=== PATIENT | male | born 1960 | race Caucasian/White ===

== ENCOUNTER 2024-03-22 09:58 | Inpatient (IN) ==
[2024-03-22 10:41] LABS: Basophils # (auto) 0.03 K/uL (0.00-0.20); Basophils % (auto) 0.3 %; Eosinophils # (auto) 0.24 K/uL (0.00-0.50); Eosinophils % (auto) 2.2 %; Hematocrit (blood only) 54.8 % (42.0-52.0); Hemoglobin 17.5 g/dl (14.0-18.0); Immature Granulocytes # (auto) 0.14 K/uL (0.01-0.20); Immature Granulocytes % (auto) 1.3 %; Lymphocytes # (auto) 1.37 K/uL (1.20-3.40); Lymphocytes % (auto) 12.8 %; Mean Corpuscular Hgb Conc 31.9 g/dL (32.0-36.0); Mean Corpuscular Volume 100.2 fL (80.0-100.0); Mean Platelet Volume 10.5 fL (9.4-12.4); Monocytes # (auto) 0.56 K/uL (0.11-0.59); Monocytes % (auto) 5.2 %; Neutrophils # (auto) 8.35 K/uL (1.40-6.50); Neutrophils % (auto) 78.2 %; Platelet Count 189 K/uL (130-400); RDW Coefficient of Variation 15.2 % (11.5-14.5); RDW Standard Deviation 54.9 fL (36.4-46.3); Red Blood Count 5.47 M/uL (4.70-6.10); White Blood Count 10.69 K/ul (4.8-10.8)
--- NOTE | 2024-03-22 10:41 | Emergency Department Note ---
Impression & Plan Acute dyspnea, Acute exacerbation of chronic obstructive pulmonary disease, Acute hypoxemic respiratory failure, Hypercarbia ED Provider Note HISTORY OF PRESENT ILLNESS: Patient is a 64-year-old male presenting with cough and shortness of breath. Patient reports he has been feeling unwell for the last 2 weeks. He states he had progressively worsening shortness of breath and a cough productive of a brown sputum. Patient denies any DVT or PE history. Denies any anticoagulation use. He denies any history of cardiac stents. He states he has had progressively worsening shortness of breath in the last 2 weeks. He was at a doctor's office visit today and was taken down to the [facility] where he is found to be hypoxic to 83% on room air and was referred to the emergency department. Patient reports he normally has a productive cough of a clear sputum, but it is now a brown color and foul tasting. He states he does not wear any supplemental oxygen at baseline. Denies any recent travel. Denies any recent sick contact exposures. 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 Denies any abdominal pain, nausea or vomiting. Denies any dysuria or hematuria. Patient reports that shortness of breath is worse at nighttime. Reports that he is only able to sleep for about 20 to 30 minutes at a time before he wakes up gasping for air and needing to cough. Denies any lower extremity edema. ROS: as above PHYSICAL EXAM: Constitutional: Patient appears in no acute distress. HENT: Head: Normocephalic and atraumatic. Eyes: EOMI, PERRL Mouth/Throat: Mucous membranes moist. Neck: Trachea midline. Neck supple. Cardiovascular: RRR, No murmurs, rubs or gallops. Intact distal pulses. Pulmonary/Chest: Patient is conversationally dyspneic. He is on 3 L nasal cannula with saturations of 91%. Decreased breath sounds in bilateral lower lungs. Abdominal: Abdomen soft, no tenderness, rebound or guarding. Musculoskeletal: No edema, tenderness or deformity noted. Skin: Warm and dry. No rash, erythema, pallor or cyanosis Psychiatric: Appropriate mood and affect for situation. Neurological: Alert and keenly responsive. CN II-XII grossly intact, moving all extremities equally and fully. MDM: - Vitals signs showed hypertension, tachycardia and no hypoxia - History obtained via patient. History as above. - Chronic conditions affecting care: Hypothyroidism; DM-2; COPD; HLD - Differential diagnoses include, but are not limited to: Congestive heart failure; acute coronary syndrome; COPD/asthma exacerbation; pulmonary edema; pulmonary embolism; pneumonia; pneumothorax; viral syndrome - Order placed for continuous cardiac monitoring. At this time, monitor showed rate of 76 bpm with normal sinus rhythm, per my interpretation. - External medical records reviewed. [facility] practice office visit note dated 03/22/2024 was reviewed. Patient was evaluated for shortness of breath and hypoxia. He had expressed to them that he has been short of breath for the last 2 weeks. He had notable hypoxia to 83% after walking on room air. On 2 L nasal cannula he was found to have 94% saturation. While at rest and talking in the office, his oxygen saturation was 87% on room air. - EKG interpreted by myself showed normal sinus rhythm. Rate 96 bpm. QT 338. No acute ischemic changes. - Laboratory workup interpreted by myself showed normal WBC; normal PT/INR; normal lactate; normal procalcitonin; stable electrolytes; hyperglycemia (glucose 278); normal troponin; normal BNP - Viral respiratory panel negative - VBG showed hypercarbia without acidosis - CXr negative for pneumonia, per my interpretation - Given patient's shortness of breath and hypoxia, CT PE was ordered. CT PE negative for PE. - Patient given 80 mg IV Solu-Medrol. His symptoms may be secondary to an acute COPD exacerbation. He remained borderline hypoxic on oxime mask and nasal cannula, so he was transition to BiPAP for work of breathing and hypercarbia. - Discussion was had with pillowcase turner about patient's case and need for admission - Hospitalist consulted for admission - [facility] and [facility]. ASSESSMENT AND PLAN: Diagnosis: Acute dyspnea; acute hypoxic respiratory failure; hypercarbia; acute COPD exacerbation Plan: Admit Past Med/Surg History Problem List (Updated 03/22/24 @ 13:02 by Graciela Cook MD) Hypercarbia (Acute) Acute hypoxemic respiratory failure (Acute) Acute exacerbation of chronic obstructive pulmonary disease (Acute) Acute dyspnea (Acute) Social History Smoking Status: Current every day smoker Tobacco Type: Cigarettes Feels Safe at Home: Yes Allergies Allergies Allergy/AdvReac Type Severity Reaction Status Date / Time No Known Allergies Allergy Unverified 03/22/24 11:44 Home Meds Home Medications Medication Instructions Recorded Confirmed atorvastatin 40 mg tablet 40 mg PO DAILY 03/22/24 03/22/24 cholecalciferol (vitamin D3) 50 50 mcg PO DAILY 03/22/24 03/22/24 mcg (2,000 unit) capsule (Vitamin D3) cyanocobalamin (vitamin B-12) 500 500 mcg PO DAILY 03/22/24 03/22/24 mcg tablet (Vitamin B-12) empagliflozin 25 mg tablet 25 mg PO DAILY 03/22/24 03/22/24 (Jardiance) levothyroxine 25 mcg tablet 25 mcg PO DAILY 03/22/24 03/22/24 metformin 850 mg tablet 850 mg PO BID 03/22/24 03/22/24 Results & Data (ED) Vital Signs Vital Signs - 24 hr 03/22/24 09:59 03/22/24 10:01 03/22/24 10:15 Temperature 36.3 C L Temperature Source Temporal Artery Scan Pulse Rate 107 H 99 H Pulse Rate [Right Brachial] 94 H Pulse Rate from SpO2 Sensor 99 H Pulse Rhythm [Right Brachial] Regular Pulse Strength [Right Brachial] Normal Respiratory Rate 23 18 19 Respiratory Effort / Characteristics Short of Breath Non-Labored Respiratory Depth Deep Normal Respiratory Pattern Irregular Regular Blood Pressure 157/74 H 131/85 Blood Pressure [Right Arm] 131/85 Blood Pressure Mean 101 100 Blood Pressure Mean [Right Arm] 100 Blood Pressure Position [Right Arm] Sitting Pulse Oximetry 93 88 L 93 Oxygen Delivery Method Nasal Cannula Room Air Oxymask Oxygen Flow Rate 4 4 Sepsis Recent Fever Within 48 Hours No Sepsis New/Unexplained Change in Mental Status N/A Sepsis Action Taken by Nursing No Action Required 03/22/24 10:20 03/22/24 10:28 03/22/24 11:59 Temperature 37.3 C Temperature Source Oral Pulse Rate 95 H Pulse Rate [Right Brachial] 76 Pulse Rate from SpO2 Sensor Pulse Rhythm [Right Brachial] Regular Pulse Strength [Right Brachial] Normal Respiratory Rate 22 Respiratory Effort / Characteristics Labored Respiratory Depth Deep Respiratory Pattern Blood Pressure Blood Pressure [Right Arm] 129/83 Blood Pressure Mean Blood Pressure Mean [Right Arm] 98 Blood Pressure Position [Right Arm] Sitting Pulse Oximetry 88 L 93 Oxygen Delivery Method Room Air Aerosol Mask Oxygen Flow Rate Sepsis Recent Fever Within 48 Hours Sepsis New/Unexplained Change in Mental Status Sepsis Action Taken by Nursing Laboratory Data 03/22/24 10:15 03/22/24 10:15 Lab Results 03/22/24 03/22/24 03/22/24 Range/Units 10:15 10:31 11:16 WBC 10.69 (4.8-10.8) K/ul RBC 5.47 (4.70-6.10) M/uL Hgb 17.5 (14.0-18.0) g/dl Hct 54.8 H (42.0-52.0) % MCV 100.2 H (80.0-100.0) fL MCH 32.0 (25.0-34.0) pg MCHC 31.9 L (32.0-36.0) g/dL RDW Std Deviation 54.9 H (36.4-46.3) fL RDW Coeff of Wes 15.2 H (11.5-14.5) % Plt Count 189 (130-400) K/uL MPV 10.5 (9.4-12.4) fL Immature Gran % (Auto) 1.3 % Neut % (Auto) 78.2 % Lymph % (Auto) 12.8 % Sawyer % (Auto) 5.2 % Eos % (Auto) 2.2 % Baso % (Auto) 0.3 % Neut # (Auto) 8.35 H (1.40-6.50) K/uL Lymph # (Auto) 1.37 (1.20-3.40) K/uL Sawyer # (Auto) 0.56 (0.11-0.59) K/uL Eos # (Auto) 0.24 (0.00-0.50) K/uL Baso # (Auto) 0.03 (0.00-0.20) K/uL Immature Gran # (Auto) 0.14 (0.01-0.20) K/uL PT 10.3 (9.0-12.0) Seconds INR 0.9 (0.9-1.1) VBG pH 7.36 (7.36-7.41) VBG pCO2 64 H (38-50) mmHg VBG pO2 37 mmHg VBG HCO3 36 mmol/L VBG O2 Saturation 69.3 % VBG Base Excess 8.4 mEq/L Sodium 137 (136-145) mmol/L Potassium 4.6 (3.5-5.1) mmol/L Chloride 99 (98-107) mmol/L Carbon Dioxide 34 H (21-32) mmol/L Anion Gap 4 (3-11) BUN 11 (6-23) mg/dl Creatinine 0.92 (0.6-1.4) mg/dl Est Cr Clr Drug Dosing 79.6 ml/min Est GFR ( Amer) 101.5 ml/min Est GFR (Non-Af Amer) 87.6 ml/min BUN/Creatinine Ratio 12.0 (10-20) Glucose 278 H (70-99(Fasting)) mg/dl Lactate 1.1 (0.4-2.0) mmol/L Calcium 10.0 (8.6-10.3) mg/dl Magnesium 2.3 (1.7-2.4) mg/dl Total Bilirubin 0.6 (0.2-1.0) mg/dl AST 39 (13-39) U/L ALT 51 (7-52) U/L Alkaline Phosphatase 100 (34-104) U/L Troponin I High Sens 8.4 (0-20) pg/ml B-Natriuretic Peptide 7 (0-100) pg/ml Total Protein 7.1 (6.0-8.3) gm/dl Albumin 4.5 (3.4-5.0) gm/dl Globulin 2.6 (2.5-4.0) gm/dl Albumin/Globulin Ratio 1.7 (0.9-2) Procalcitonin 0.05 (0-0.5) ng/ml Adenovirus (PCR) Not Detected (NotDetected) B. pertussis DNA (PCR) Not Detected (NotDetected) B.parapertussis DNA PCR Not Detected (NotDetected) C. pneumoniae DNA (PCR) Not Detected (NotDetected) Coronavirus OC43 (PCR) Not Detected (NotDetected) Coronavirus HKU1 (PCR) Not Detected (NotDetected) Coronavirus 229E (PCR) Not Detected (NotDetected) SARS-CoV-2 (PCR) Not Detected (NotDetected) Coronavirus NL63 (PCR) Not Detected (NotDetected) Human Metapneumovir PCR Not Detected (NotDetected) Influenza Type A (PCR) Not Detected (NotDetected) Influenza Type B (PCR) Not Detected (NotDetected) M. pneumoniae (PCR) Not Detected (NotDetected) Parainfluenza 1 (PCR) Not Detected (NotDetected) Parainfluenza 2 (PCR) Not Detected (NotDetected) Parainfluenza 3 (PCR) Not Detected (NotDetected) Parainfluenza 4 (PCR) Not Detected (NotDetected) RSV (PCR) Not Detected (NotDetected) Entero/Rhino (PCR) Not Detected (NotDetected) Administered Medications Discontinued Medications Ioversol (Optiray 320 125ml) 120 ml IV ONCE ONE Stop: 03/22/24 11:27 Last Admin: 03/22/24 11:27 Dose: 120 ml Documented By: ENRIQUE Methylprednisolone (Methylprednisolone 125 Mg/2 Ml Vial) 80 mg IV NOW STA Stop: 03/22/24 12:05 Last Admin: 03/22/24 12: Dose: 80 mg Documented By: YURIY Imaging Data Radiologist's Impression: Chest X-Ray 03/22/24 10:09 XR chest 1V portable CLINICAL HISTORY: Dyspnea TECHNIQUE: Single frontal radiograph of the chest was obtained. Comparison: None available at the time of this dictation. FINDINGS: No lines and tubes are seen. The cardiomediastinal silhouette is normal. The lungs are clear. No evidence of pleural effusion or pneumothorax. IMPRESSION: No acute abnormalities and in particular no radiographic evidence of pneumonia. ACT 112: Negative or not required by law. Electronically signed by: Tucker Schneider M.D. 03/22/2024 11:20 AM Chest CTA 03/22/24 11:01 CT angio chest PE protocol CLINICAL HISTORY: PE; SOB, hypoxic TECHNIQUE: Multidetector row helical CT of the chest was performed with angiographic protocol. Coronal and sagittal reformations were obtained. Coronal and sagittal MIPS were obtained from the axial data set and were submitted for review. Automated dose lowering techniques and/or adjustment according to patient size were utilized for this exam. CT DOSE: 759.21 mGy.cm Comparison: Comparison is made to chest radiograph 03/22/2024 FINDINGS: Lungs and pleura: Diffuse centrilobular emphysema is seen most prominent in the upper lobes. Mild atelectasis is seen. Heart and pericardium: Heart size is normal. No pericardial effusion. Vessels: No evidence of pulmonary embolism. Mediastinum and ankush: Subcentimeter lymph nodes are seen. Chest wall and lower neck: Unremarkable. Abdomen: Unremarkable. Bones: Unremarkable. IMPRESSION: No acute abnormality and in particular no evidence of pulmonary embolus. ACT 112: Negative or not required by law. Electronically signed by: Tucker Schneider M.D. 03/22/2024 11:42 AM Discharge Plan Visit Data Chief Complaint: Referred by Doctor Stated Complaint: BREATHING PROBLEMS, LOW O2 ED Provider: Graciela Cook Discharge Problem: Acute dyspnea, Acute exacerbation of chronic obstructive pulmonary disease, Acute hypoxemic respiratory failure, Hypercarbia Forms Stand Alone Forms: My [facility] Prescriptions Prescriptions: No Action metformin 850 mg tablet 850 mg PO BID Jardiance 25 mg tablet 25 mg PO DAILY levothyroxine 25 mcg tablet 25 mcg PO DAILY atorvastatin 40 mg tablet 40 mg PO DAILY cyanocobalamin (vitamin B-12) [Vitamin B-12] 500 mcg Tablet 500 mcg PO DAILY cholecalciferol (vitamin D3) [Vitamin D3] 50 mcg (2,000 unit) Capsule 50 mcg PO DAILY Referrals Referrals: PCP,NO [Physician] -
[2024-03-22 10:45] LABS: Base Excess VBG 8.4 mEq/L; HCO3 VBG 36 mmol/L; Oxygen Saturation VBG 69.3 %; PCO2 VBG 64 mmHg (38-50); PO2 VBG 37 mmHg; pH VBG 7.36 (7.36-7.41)
[2024-03-22 10:52] LABS: Albumin Globulin Ratio 1.7 (0.9-2); Albumin Level 4.5 gm/dl (3.4-5.0); Bilirubin,Total 0.6 mg/dl (0.2-1.0); Creatinine Clr Calc Pharmacy 79.6 ml/min; Est GFR (African American) 101.5 ml/min; Est GFR (Non-African American) 87.6 ml/min; Globulin 2.6 gm/dl (2.5-4.0); Magnesium 2.3 mg/dl (1.7-2.4); Potassium 4.6 mmol/L (3.5-5.1); Total Protein 7.1 gm/dl (6.0-8.3)
[2024-03-22 10:58] LABS: Troponin I High Sensitivity 8.4 pg/ml (0-20)
[2024-03-22 11:09] LABS: INR 0.9 (0.9-1.1); Prothrombin Time 10.3 Seconds (9.0-12.0)
--- NOTE | 2024-03-22 11:21 | XRay Report ---
XR chest 1V portable CLINICAL HISTORY: Dyspnea TECHNIQUE: Single frontal radiograph of the chest was obtained. Comparison: None available at the time of this dictation. FINDINGS: No lines and tubes are seen. The cardiomediastinal silhouette is normal. The lungs are clear. No evid ence of pleural effusion or pneumothorax. IMPRESSION: No acute abnormalities and in particular no radiographic evidence of pneumonia. ACT 112: Negative or not required by law. Electronically signed by: Tucker Schneider M.D. 03/22/2024 11:20 AM
[2024-03-22] MEDS: OPTIRAY 320 125ml IV ONE (11:27)
--- NOTE | 2024-03-22 11:44 | CT Scan Report ---
CT angio chest PE protocol CLINICAL HISTORY: PE; SOB, hypoxic TECHNIQUE: Multidetector row helical CT of the chest was performed with angiographic protocol. Esteves l and sagittal reformations were obtained. Coronal and sagittal MIPS were obtained from the axial lizette a set and were submitted for review. Automated dose lowering techniques and/or adjustment according to patient size were utilized for this exam. CT DOSE: 759.21 mGy.cm Comparison: Comparison is made to chest radiograph 03/22/2024 FINDINGS: Lungs and pleura: Diffuse centrilobular emphysema is seen most prominent in the upper lobes. Mild ate lectasis is seen. Heart and pericardium: Heart size is normal. No pericardial effusion. Vessels: No evidence of pulmonary embolism. Mediastinum and ankush: Subcentimeter lymph nodes are seen. Chest wall and lower neck: Unremarkable. Abdomen: Unremarkable. Bones: Unremarkable. IMPRESSION: No acute abnormality and in particular no evidence of pulmonary embolus. ACT 112: Negative or not required by law. Electronically signed by: Tucker Schneider M.D. 03/22/2024 11:42 AM
[2024-03-22 11:52] LABS: Adenovirus PCR Not Detected (NotDetected); Bordetella parapertussis PCR Not Detected (NotDetected); Bordetella pertussis PCR Not Detected (NotDetected); Chlamydia pneumoniae PCR Not Detected (NotDetected); Coronavirus 229E PCR Not Detected (NotDetected); Coronavirus CoV-2 (COVID19)PCR Not Detected (NotDetected); Coronavirus HKU1 PCR Not Detected (NotDetected); Coronavirus NL63 PCR Not Detected (NotDetected); Coronavirus OC43PCR Not Detected (NotDetected); Human Metapneumovirus PCR Not Detected (NotDetected); Influenza A PCR Not Detected (NotDetected); Influenza B PCR Not Detected (NotDetected); Mycoplasma pneumoniae PCR Not Detected (NotDetected); Parainfluenza Virus 1 PCR Not Detected (NotDetected); Parainfluenza Virus 2 PCR Not Detected (NotDetected); Parainfluenza Virus 3 PCR Not Detected (NotDetected); Parainfluenza Virus 4 PCR Not Detected (NotDetected); Respiratory Syncytial VirusPCR Not Detected (NotDetected); Rhinovirus/Enterovirus PCR Not Detected (NotDetected)
[2024-03-22] MEDS: methylPREDNISolone 125 MG/2 ML VIAL IV STA (12:27)
--- NOTE | 2024-03-22 13:30 | History & Physical Report ---
Date of Service March 22, 2024 Assessment & Plan (1) Acute respiratory failure with hypoxia and hypercapnia: (2) Acute exacerbation of chronic obstructive pulmonary disease: (3) Dyspnea on exertion: (4) Type 2 diabetes mellitus without complication: (5) Hypothyroidism: Plan Abilio Georges is a 64 year old male with tobacco abuse, DM-2, Hypothyroidism who presented to the ED from the PCP office for evaluation of shortness of breath. Acute hypoxic hypercarbic respiratory failure suspected due to undiagnosed COPD and undiagnosed LUZ, and bronchitis- Details as in HPI. CTA with no PNA or PE but diffuse centrilobular emphysema. Productive cough with brown sputum now clearing up. Does have chronic PND and is smokes 1 PPD for a long time. WBC normal, BNP negative, trop negative, procal negative. RVP negative. COVID negative. VBG with CO2 of 64. Given steroids and oxygen in the ED. Will continue iv solumedrol, nebs, doxycycline, IS, flutter valve. Zyrtec for PND. Will get echo to r/o Pulm HTN, structural heart disease. Will need rest and oxygen evaluation prior to discharge. Will need OP PFTs. Suspected LUZ- will get overnight pulse oximetry. Recommend OP sleep study which he was discussing with his PCP DM-2- uncontrolled, Ha1c 8.8. BG 278. Hold home metformin and Jardiance. Will continue carb controlled diet, lantus, humalog as hyperglycemia is expected with steroids . Adjust as indicated. Hypothyroidism- continue synthroid Tobacco abuse- 40+ pack year history of smoking. smokes 1 ppd. Hasn't started on chantix yet. Declines nicoderm patch Left shoulder pain- following OP with pain management and PT OT. Lidoderm patch DVT ppx- sc lovenox Dispo- PCU tele Full code Time spent- Approx 76 mins History of Present Illness Chief Complaint: shortness of breath Primary Care Provider: Teodora Matias MD Abilio Georges is a 64 year old male with tobacco abuse, DM-2, Hypothyroidism who presented to the ED from the PCP office for evaluation of shortness of breath. Patient was at pain management clinic for evaluation of left shoulder pain, then walked in to the PCP office for shortness of breath where he was found to be hypoxic at 83% on room air and sent to ED for evaluation. In the ED, he was hypoxic and was put on BIPAP followed by oxymask. He felt better with oxygen on. States LOWERY ongoing for about 2 weeks. Started with nasal congestion and sinus symptoms which cleared up with afrin but dyspnea never improved. Feels dyspneic with exertion and has to rest when he is going up the stairs to his apartment (lives in second floor and 17 steps, and is short of breath by the time he is there and has to rest for about 10 mins). No orthopnea but some PND intermittently- states that he sometimes has to wake up at night gasping for breath. Does snore and think he has sleep apnea- was discussing about sleep study with PCP but he is currently out for surgery. Still smoking a PPD. Denies any prior diagnosis of COPD or asthma. Never seen a lung doctor or used any inhalers. Has some phlegm at baseline but this time it was brown phlegm but it is already clearing up. No fever, chills, N/V, CP, diaphoresis. Allergies Allergy/AdvReac Type Severity Reaction Status Date / Time No Known Allergies Allergy Unverified 03/22/24 11:44 Home Medications Medication Instructions Recorded Confirmed Type atorvastatin 40 mg tablet 40 mg PO DAILY 03/22/24 03/22/24 History cholecalciferol (vitamin D3) 50 50 mcg PO DAILY 03/22/24 03/22/24 History mcg (2,000 unit) capsule (Vitamin D3) cyanocobalamin (vitamin B-12) 500 500 mcg PO DAILY 03/22/24 03/22/24 History mcg tablet (Vitamin B-12) empagliflozin 25 mg tablet 25 mg PO DAILY 03/22/24 03/22/24 History (Jardiance) levothyroxine 25 mcg tablet 25 mcg PO DAILY 03/22/24 03/22/24 History metformin 850 mg tablet 850 mg PO BID 03/22/24 03/22/24 History Past Med/Surg History Problem List (Updated 03/22/24 @ 15:58 by Emerson Claudio MD) Acute respiratory failure with hypoxia and hypercapnia Dyspnea on exertion Hypothyroidism Type 2 diabetes mellitus without complication Hypercarbia (Acute) Acute hypoxemic respiratory failure (Acute) Acute exacerbation of chronic obstructive pulmonary disease (Acute) Acute dyspnea (Acute) Social History Smoking Status: Current every day smoker Tobacco Type: Cigarettes Feels Safe at Home: Yes Review of Systems Review of Systems: All systems reviewed & are unremarkable except as noted in Subjective Physical Exam Physical Exam: General: Lying comfortably in bed, not in distress, on oxymask HEENT: EOMI, TRES, MMM Chest: Decreased breath sounds bilaterally CVS: Regular rate and rhythm, normal heart sounds, no murmur Abdomen: Soft, non tender, not distended, normal bowel sounds Neuro: Awake, alert, oriented, conversing well, non focal Extremities: Trace edema MSK: Decreased ROM of left shoulder due to pain Results & Data Results & Data Vital Signs (Past 12 Hours) Vital Signs Temp Pulse Pulse Resp BP BP Pulse Ox 03/22/24 11:59 37.3 C 76 22 129/83 93 03/22/24 10:28 95 H 03/22/24 10:20 88 L 03/22/24 10:15 99 H 19 131/85 93 03/22/24 10:01 36.3 C L 107 H 18 157/74 H 88 L 03/22/24 09:59 94 H 23 131/85 93 O2 Del Method O2 Flow Rate 03/22/24 11:59 Aerosol Mask 03/22/24 10:28 03/22/24 10:20 Room Air 03/22/24 10:15 Oxymask 4 03/22/24 10:01 Room Air 03/22/24 09:59 Nasal Cannula 4 Laboratory Results Short CBC 03/22/24 Range/Units 10:15 WBC 10.69 (4.8-10.8) K/ul Hgb 17.5 (14.0-18.0) g/dl Hct 54.8 H (42.0-52.0) % Plt Count 189 (130-400) K/uL BMP 03/22/24 10:15 Sodium 137 Potassium 4.6 Chloride 99 Carbon Dioxide 34 H BUN 11 Creatinine 0.92 Glucose 278 H Calcium 10.0 Liver Function 03/22/24 Range/Units 10:15 Total Bilirubin 0.6 (0.2-1.0) mg/dl AST 39 (13-39) U/L ALT 51 (7-52) U/L Alkaline Phosphatase 100 (34-104) U/L Albumin 4.5 (3.4-5.0) gm/dl Diagnostic Findings Chest X-Ray 03/22/24 10:09 XR chest 1V portable CLINICAL HISTORY: Dyspnea TECHNIQUE: Single frontal radiograph of the chest was obtained. Comparison: None available at the time of this dictation. FINDINGS: No lines and tubes are seen. The cardiomediastinal silhouette is normal. The lungs are clear. No evidence of pleural effusion or pneumothorax. IMPRESSION: No acute abnormalities and in particular no radiographic evidence of pneumonia. ACT 112: Negative or not required by law. Electronically signed by: Tucker Schneider M.D. 03/22/2024 11:20 AM Chest CTA 03/22/24 11:01 CT angio chest PE protocol CLINICAL HISTORY: PE; SOB, hypoxic TECHNIQUE: Multidetector row helical CT of the chest was performed with angiographic protocol. Coronal and sagittal reformations were obtained. Coronal and sagittal MIPS were obtained from the axial data set and were submitted for review. Automated dose lowering techniques and/or adjustment according to patient size were utilized for this exam. CT DOSE: 759.21 mGy.cm Comparison: Comparison is made to chest radiograph 03/22/2024 FINDINGS: Lungs and pleura: Diffuse centrilobular emphysema is seen most prominent in the upper lobes. Mild atelectasis is seen. Heart and pericardium: Heart size is normal. No pericardial effusion. Vessels: No evidence of pulmonary embolism. Mediastinum and ankush: Subcentimeter lymph nodes are seen. Chest wall and lower neck: Unremarkable. Abdomen: Unremarkable. Bones: Unremarkable. IMPRESSION: No acute abnormality and in particular no evidence of pulmonary embolus. ACT 112: Negative or not required by law. Electronically signed by: Tucker Schneider M.D. 03/22/2024 11:42 AM
[2024-03-22] MEDS ORDERED: DEXTROSE 50% 50 ML SYRINGE IV PRN (15:16)
[2024-03-22] MEDS ORDERED: GLUCOSE 10 TAB/TUBE PO PRN (15:16)
[2024-03-22] MEDS ORDERED: ALUMINUM/MAGNESIUM SUSP 30 ML UDC PO PRN (15:16)
[2024-03-22] MEDS ORDERED: GLUCAGON FOR INJ 1 MG VIAL SQ PRN (15:16)
[2024-03-22] MEDS ORDERED: MELATONIN 3 MG TAB PO PRN (15:16)
[2024-03-22] MEDS ORDERED: ACETAMINOPHEN 325 MG TAB PO PRN (15:16)
[2024-03-22] MEDS ORDERED: GLUCOSE 40% GEL 15 GM TUBE PO PRN (15:16)
[2024-03-22] MEDS ORDERED: ONDANSETRON INJ 2 MG/ML 2 ML VIAL IV PRN (15:16)
[2024-03-22] MEDS ORDERED: CARBOHYDRATES FOR HYPOGLYCEMIA PO PRN (15:16)
[2024-03-22] MEDS ORDERED: MAGNESIUM HYDROXIDE SUSP 30 ML UDC PO PRN (15:16)
[2024-03-22] MEDS: DOXYCYCLINE HYCLATE 100 MG CAP PO SCH (16:12)
[2024-03-22] MEDS: CHOLECALCIFEROL 25 MCG (1000 UNITS) TAB PO SCH (16:12)
[2024-03-22] MEDS: CYANOCOBALAMIN (B-12) 500 MCG TABLET PO SCH (16:12)
[2024-03-22] MEDS: ALBUT/IPRATROP 3MG/0.5MG NEB 3 ML VIAL INH SCH (16:33)
[2024-03-22 16:49] LABS: Appearance Urine Clear (Clear); Bacteria Urine Automated None Seen (None Seen); Bilirubin Urine Negative (Negative); Blood Urine Negative (Negative); Cast Urine Automated 0-2 /lpf (0-2); Color Urine Yellow; Epithelial Cell Urine Auto 0-2 /hpf (0-2); Glucose Urine UA 3+ (Negative); Ketones Urine Negative (Negative); Leukocyte Esterase Urine Negative (Negative); Nitrite Urine Negative (Negative); Protein Urine Trace (Negative); RBC Urine Automated 0-2 /hpf (0-2); Specific Gravity Urine > 1.045 (1.000-1.030); Urobilinogen Urine Negative (Negative); WBC Urine Automated 0-5 /hpf (0-5)
[2024-03-22] MEDS: INSULIN ASPART PER UNIT CHARGE SC SCH (18:24)
[2024-03-22] MEDS: BUDESONIDE 0.5 MG/2 ML VIAL (PULMICORT) NEB SCH (19:18)
[2024-03-22] MEDS: LANTUS PER UNIT CHARGE SQ SCH (20:21)
[2024-03-22] MEDS ORDERED: Nursing to Pharmacy Communication SCH (21:45)
[2024-03-22] MEDS: guaiFENesin 600 MG TABCR PO SCH (22:41)
[2024-03-22] MEDS: methylPREDNISolone 40 MG in SYRINGE 0 ML IV SCH (22:42)
[2024-03-22] MEDS: CETIRIZINE HCL 10 MG TABLET PO SCH (22:42)
[2024-03-23] MEDS: INSULIN HUMAN REGULAR PER UNIT 4 UNITS in SYRINGE 3.96 ML IV STA (00:42)
--- OUTSIDE RECORDS SUMMARY | 2024-03-23 02:16 | External Medical Summary | Summary of Care ---
Author Name Unknown Organization [facility] Address [address] [facility] [place] [address] Phone [phone] Care Team Providers Care Grapple Operator Name Role Phone Justice DOUGHERTY MD, Salbador Becker Primary Care Provider [phone] Reason for Visit * Reason Comments Acute Low o2 Encounter Details Date Type Department Care Team (Late st Contact Info) Description 03/22/2024 10:00 AM EDT Office Visit Family [facility] [address] [place] [address] Maximilian Willett MD [address] [place] [place] [address] Hypoxia*; Tobacco dependence; Suspected sleep apnea; Type 2 diabetes mellitus with hemoglobin A1c goal of less than 7.0% ([facility]); Acquired hypothyroidism; Dyslipidemia Allergies Active Allergy Reactions Criticality Noted Date Comments Pollen Other (Please comment) 11/16/2021 Excessive post nasal drip documented as of this encounter (statuses as of 03/22/2024) Medications Medication Sig Dispensed Refills Start Date End Date Status Ibuprofen 200 MG Oral Tablet (MOTRIN) Take 1 Tablet by mouth every 4 hours as needed. Active Vitamin D 25 MCG (1000 UT) Oral Tablet Take by mouth. Active OneTouch Delica Lancets 33G Check up to 4 times daily E11.9 100 Each 6 06/18/2020 Active RingRang Next Monitor w/Device Kit Use as directed. Test one to four times a day. E11.9 1 Kit 09/03/2020 Active RingRang Next Test In Vitro Strip (Glucose Blood) Test one to four times a day. E11.9 100 Strip 11 09/03/2020 Active Lancets Contour next lancets. One to four times a day E11.9 100 Each 11 09/03/2020 Active Vitamin B-12 ER 1000 MCG Oral Tablet Extended Release Take by mouth daily. Active Jardiance 25 MG Oral Tablet (Empagliflozin) TAKE 1 TABLET BY MOUTH DAILY 90 Tablet 3 07/15/2023 Active metFORMIN HCl 850 MG Oral Tablet (Glucophage) TAKE 1 TABLET BY MOUTH TWICE DAILY WITH MORNING AND EVENING MEALS 180 Tablet 3 07/15/2023 Active Levothyroxine Sodium 25 MCG Oral Tablet (Levoxyl) TAKE 1 TABLET BY MOUTH DAILY FIRST THING IN THE MORNING AT LEAST 1/2 HOUR PRIOR TO BREAKFAST OR OTHER MEDS 90 Tablet 2 12/15/2023 Active Atorvastatin Calcium 40 MG Oral Tablet (Lipitor) TAKE 1 TABLET BY MOUTH IN THE MORNING 90 Tablet 1 01/24/2024 Active Varenicline Tartrate 0.5 MG Oral Tablet (Chantix)Indicatio ns:Tobacco use For days 1 through 3, take 0.5 mg once daily. For days 4 through 7, take 0.5 mg twice daily. For days 8 onward, take 1 mg twice daily. 90 Tablet 1 01/24/2024 Active Additional Information Patient not taking.Reported on 01/26/2024 documented as of this encounter (statuses as of 03/22/2024) Active Problems Problem Noted Date Diagnosed Date Hypoxia 03/22/2024 Tobacco dependence 03/22/2024 Suspected sleep apnea 03/22/2024 Acquired hypothyroidism 11/16/2021 Dyslipidemia 11/16/2021 Type 2 diabetes mellitus wit h hemoglobin A1c goal of less than 7.0% 09/03/2020 documented as of this encounter (statuses as of 03/22/2024) Immunizations Name Administration Dates Next Due COVID-19 mRNA, LNP-s, No Pre serve, 2-Dose Series (Moderna) 05/20/2021,04/22/2021 Pneumococcal Polysaccharide PPV23 (Pneumovax) 08/17/2021 Seasonal Influenza, PF, 6 M & above, IM , (FluLaval or Fluzone) 06/29/2023,05/19/2022,08/17/2021,05/28 TDAP (age 10 and older)(Boostrix) 07/05/2018 documented as of this encounter Social History Tobacco Use Types Packs/Day Years Used Date Smoking Tobacco: Every Day Cigarettes 1 40.2 Started: 01/25/1984 Smokeless Tobacco: Never PHQ-2 Answer Date Recorded PHQ-2 Score 0 05/28/2020 Hunger Vital Sign Answer Date Recorded Within the past 12 months, y ou worried that your food would run out before you got the money to buy more. Patient declined Within the past 12 months, t he food you bought just didn't last and you didn't have money to get more. Patient declined 11/2023 Childcare Answer Date Recorded Do you feel overwhelmed with taking care of a child, family member or friend? No 01/24/2024 Does your family need help f inding childcare? (Household - for ages 0-17 years) Not on file 01/24/2024 Clothing Answer Date Recorded Have you been unable to get clothing when it was really needed? No 01/24/2024 Is your family able to get c lothes or diapers when needed? (Household - for ages 0-17 years) Not on file 01/24/2024 Personal Safety Answer Date Recorded Do you feel unsafe or have concerns for your saf ety? No 01/24/2024 Do you have concerns for you r family's safety? (Household - for ages 0-17 years) Not on file 01/24/2024 Utilities Answer Date Recorded Do you have trouble paying y our heating, water, or electric bill? Yes 01/24/2024 Is your family able to pay t he heat, water, or electric bill? (Household - for ages 0-17 years) Not on file 01/24/2024 Does your family have access to good internet? (Household - for ages 0-17 years) Not on file 01/24/2024 Employment Status Answer Date Recorded Are you unemployed or without regular income? No 01/24/2024 Does the household have a re gular source of income? (Household - for ages 0-17 years) Not on file 01/24/2024 Social Connections Answer Date Recorded How often do you feel lonely or isolated from those around you? Sometimes 01/24/2024 Financial Resource Strain Answer Date R ecorded Do you have any trouble payi ng for your medications, or do you think you might in the future? Yes 01/24/2024 Does your family have troubl e paying for medicine? (Household - for ages 0-17 years) Not on file 01/24/2024 Transportation Needs Answer Date Record ed READ ONLY Do you have troubl e getting a ride to medical visits or work? Never True 01/24/2024 Does your family have a hard time getting a ride to doctors visits? (Household - for ages 0-17 years) Not on file 01/24/2024 Has lack of transportation k ept you from medical appointments, meetings, work, or from getting things needed for daily living? Check all that apply. (Adult - for ages 18 years and over) Not on file 01/24/2024 Do you (or your family) have trouble finding or paying for a ride (transportation)? (Household - for ages 0-17 years) Not on file 01/24/2024 Housing Stability Answer Date Recorded Do you currently live in a s helter or have no steady place to sleep at night? No 01/24/2024 READ ONLY Do you think you a re at risk of becoming homeless? No 01/24/2024 Does your family worry about paying for your home or becoming homeless? (Household - for ages 0-17 years) Not on file 0 01/24/2024 Are you homeless or worried that you might be in the future? (Adult - for ages 18 years and over) Not on file Are you (or your family) eugenia eless or worried that you might be in the future? (Household - for ages 0-17 years) Not on file Food Insecurity Answer Date Recorded Do you need food for this week? No 01/24/2024 Are you able to get enough f ood for your family? (Household - for ages 0-17 years) Not on file 01/24/2024 Does your family need food t his week? (Household - for ages 0-17 years) Not on file 01/24/2024 Do you always have enough fo od for your family? (Household - for ages 0-17 years) Not on file 01/24/2024 Sex and Gender Information Value Date Recorded Sex Assigned at Male 01/24/2024 3:56 PM EDT Gender Identity Male 01/24/2024 3:56 PM EDT Sexual Orientation Straight 01/24/2024 3: 56 PM EDT Job Start Date Occupation Industry Not on file Not on file Not on file documented as of this encounter Progress Notes * Maximilian Willett MD - 03/22/2024 9:23 AM EDT SUBJECTIVE: Abilio Georges is a 64 year old male here for Acute (Low o2) . Patient walked in with c/o SOB. Saw pain mgmt today for OV, walked over to family med. PCP Dr Rendon, saw Dr Teodora Matias in his absence. C/o SOB with exertion x2 weeks. New occ hot flash x2 weeks. No chills. No sick contacts known. +some inc phlegm. Occ cough. For 2 weeks he has had sig difficulty sleeping, waking up mult times gasping for air. No chest pain. No edema. He has never been diagnosed with COPD but he has a 40+ pack-year history of smoking. He recently began to think he might have sleep apnea before this illness but has not had any testing. Hemoglobin AIC Results: Lab Results Component Value Date/Time HEMOGLOBIN A1C - [facility] 8.8 (H) 03/01/2024 11:14 AM HEMOGLOBIN A1C - [facility] 7.4 (H) 06/29/2023 04:16 PM HEMOGLOBIN A1C - [facility] 7.4 (H) 03/24/2023 11:03 AM HEMOGLOBIN A1C - [facility] 7.6 (H) 06/13/2020 11:01 AM HEMOGLOBIN A1C POCT - [facility] 6.7 (H) 11/16/2021 01:27 PM ROS: Negative except above. Past Medical History: Diagnosis Date Acquired hypothyroidism 11/16/2021 Deafness in left ear Dyslipidemia 11/16/2021 Hypoxia 03/22/2024 Kidney stones Suspected sleep apnea 03/22/2024 Tobacco dependence 03/22/2024 Type 2 diabetes mellitus with hemoglobin A1c goal of less than 7.0% (HCC) 09/03/2020 Past Surgical History: Procedure Laterality Date COLONOSCOPY, DIAGNOSTIC (RECTUM) 10/18/2022 benign adenomatous polyp, repeat 5 yrs / COLONOSCOPY FLEXIBLE PROXIMAL DIAGNOSTIC performed by MD Dominique at ENDOSCOPY [facility] DENTAL SURGERY PROCEDURE NEC Bilateral EXCISE BENIGN LESION, TRUNK, ARM, LEG, 2.1 - 3.0 CM Right 08/26/2023 EXCISION BENIGN LESION EXCEPT SKIN TAG TRUNK ETC 2.1 TO 3.0CM performed by Isabel Yanez MD at OR [facility] REMOVAL OF TONSILS, UNDER AGE 12 REPAIR INGUINAL HERNIA, UNDER AGE 5 Left UMBIL HERNIA REPAIR (REDUCIBLE) AGE 5+YR N/A Social History Socioeconomic History Marital status: Single Spouse name: Not on file Number of children: Not on file Years of education: Not on file Highest education level: Not on file Occupational History Not on file Tobacco Use Smoking status: Every Day Current packs/day: 1.00 Average packs/day: 1 pack/day for 40.2 years (40.2 ttl pk-yrs) Types: Cigarettes Start date: 01/25/1984 Smokeless tobacco: Never Substance and Sexual Activity Alcohol use: Not on file Drug use: Not on file Sexual activity: Not on file Other Topics Concern Not on file Social History Narrative Not on file Social Determinants of Health Financial Resource Strain: High Risk (01/24/2024) Financial Resource Strain Do you have any trouble paying for your medications, or do you think you might in the future? (Adult - for ages 18 years and over): Yes Does your family have trouble paying for medicine? (Household - for ages 0-17 years): Not on file Food Insecurity: No Food Insecurity (01/24/2024) Food Insecurity Do you need food for this week? (Adult - for ages 18 years and over): No Are you able to get enough food for your family? (Household - for ages 0-17 years): Not on file Does your family need food this week? (Household - for ages 0-17 years): Not on file Do you always have enough food for your family? (Household - for ages 0-17 years): Not on file Transportation Needs: No Transportation Needs (01/24/2024) Transportation Needs Do you have trouble getting a ride to medical visits or work? (Adult - for ages 18 years and over):Never True Does your family have a hard time getting a ride to doctors visits? (Household - for ages 0-17 years): Not on file Has lack of transportation kept you from medical appointments, meetings, work, or from getting things needed for daily living? Check all that apply. (Adult - for ages 18 years and over): Not on file Do you (or your family) have trouble finding or paying for a ride (transportation)? (Household - for ages 0-17 years): Not on file Social Connections: Socially Integrated (01/24/2024) Social Connections How often do you feel lonely or isolated from those around you? (Adult - for ages 18 years and over): Sometimes Housing Stability: Low Risk (01/24/2024) Housing Stability Do you currently live in a intermediate or have no steady place to sleep at night? (Adult - for ages 18 years and over): No Do you think you are at risk of becoming homeless? (Adult - for ages 18 years and over): No Does your family worry about paying for your home or becoming homeless? (Household - for ages 0-17 years): Not on file Are you homeless or worried that you might be in the future? (Adult - for ages 18 years and over): Not on file Are you (or your family) homeless or worried that you might be in the future? (Household - for ages0-17 years): Not on file Family History Problem Relation Name Age of Onset Cancer Mother Diabetes Father Colon cancer Brother Skin cancer Brother Current Outpatient Medications Medication Sig Dispense Refill Ibuprofen 200 MG Oral Tablet (MOTRIN) Take 1 Tablet by mouth every 4 hours as needed. Vitamin D 25 MCG (1000 UT) Oral Tablet Take by mouth. OneTouch Delica Lancets 33G Check up to 4 times daily E11.9 100 Each 6 Contour Next Monitor w/Device Kit Use as directed. Test one to four times a day. E11.9 1 Kit 0 Contour Next Test In Vitro Strip (Glucose Blood) Test one to four times a day. E11.9 100 Strip 11 Lancets Contour next lancets. One to four times a day E11.9 100 Each 11 Vitamin B-12 ER 1000 MCG Oral Tablet Extended Release Take by mouth daily. Jardiance 25 MG Oral Tablet (Empagliflozin) TAKE 1 TABLET BY MOUTH DAILY 90 Tablet 3 metFORMIN HCl 850 MG Oral Tablet (Glucophage) TAKE 1 TABLET BY MOUTH TWICE DAILY WITH MORNING AND EVENING MEALS 180 Tablet 3 Levothyroxine Sodium 25 MCG Oral Tablet (Levoxyl) TAKE 1 TABLET BY MOUTH DAILY FIRST THING IN THE MORNING AT LEAST 1/2 HOUR PRIOR TO BREAKFAST OR OTHER MEDS 90 Tablet 2 Atorvastatin Calcium 40 MG Oral Tablet (Lipitor) TAKE 1 TABLET BY MOUTH IN THE MORNING 90 Tablet 1 Varenicline Tartrate 0.5 MG Oral Tablet (Chantix) For days 1 through 3, take 0.5 mg once daily. Fordays 4 through 7, take 0.5 mg twice daily. For days 8 onward, take 1 mg twice daily. (Patient not taking: Reported on 01/26/2024) 90 Tablet 1 No current facility-administered medications for this visit. Physical: O2 after walking in 83% RA. On 2L NC 94%. Off O2 at rest 87 while talking. Pulse 88 at rest on O2, 100 off O2. General-No apparent Distress Head, Eyes, Ears, Nose, Throat--Normocephalic, atraumatic Neck-Supple Lymph-no lymphadenopathy Lungs-distant breath sounds b/l, no wheeze/rales Cardiovascular--Regular rate & Rhythm, +s1, s2, no murmur Extremities--no edema Neuro-alert & oriented x3 (R09.02) Hypoxia (primary encounter diagnosis) Plan: suspect COPD exacerbation, (no prior dx COPD, but no testing done). Also consider PNA, PE, etc. R/o COVID, etc. -discussed recommend EMS to take to ER. Patient refused. He will drive self. Report given by me to ER. (F17.200) Tobacco dependence Plan: chronic-f/u pcp (R29.818) Suspected sleep apnea Plan: f/u for outpatient testing. (E11.9) Type 2 diabetes mellitus with hemoglobin A1c goal of less than 7.0% (HCC) Plan: chronic (E03.9) Acquired hypothyroidism Plan: chronic (E78.5) Dyslipidemia Plan: chronic Cc: pcp (This note was completed using the dictation program Fluency Direct. As such, there may be misspellings, word substitutions, or other variations that should not change the essence of the clinical content of this encounter note.If there is need for further clarification, please direct questions to the provider listed above.) Maximilian Willett MD documented in this encounter Nursing Notes * Pavithra Young LPN - 03/22/2024 9:14 AM EDT The patient has been properly identified by confirmation of name and date of . Chief Complaint Patient presents with Acute Low o2 documented in this encounter Plan of Treatment Upcoming Encounters Date Type Department Care Team (Late st Contact Info) Description 03/22/2024 11:00 AM EDT Nurse Only Ancillary [facility] [address] [place] [address] [place], Nurse Fam [facility] [address] [place] [address] Nurse Documentation 06/05/2024 10:40 AM EDT [facility] [address] [place] [address] Brandee Oden DPM [address] [place] [address] 07/30/2024 12:40 PM EST Office Visit Family Practice [facility] [address] [facility] [place] [address] Teodora Matias MD [address] [facility] [address] Scheduled Procedures Name Priority Associated Diagnoses Date/Ti me COLONOSCOPY FLEXIBLE PROXIMAL DIAGNOSTIC Recall History of colon polyps Health Maintenance Due Date Last Done Comments DISCUSS TOBACCO CESSATION (REFER TO SMARTSET #1391) 1960 HIV Screening 02/02/1975 Cologuard 02/02/2005 Fecal Occult Blood Test 02/02/2005 Sigmoidoscopy 02/02/2005 Zoster Vaccines (1 of 2) 02/02/2010 Depression Screening 05/28/2021 05/28/2020 Pneumococcal Vaccine: Pediatrics (0 to 5 Years) and At-Risk Patients (6 to 64 Years) (2 of 2 - PCV) 08/17/2022 08/17/2021 COVID-19 Vaccine ( - season) 2023 05/20/2021, 04/22/2021 Diabetic Foot Exam 12/23/2023 12/22/2022, 0 11/16/2021, 12/08/2020 Influenza Vaccine (FLU shot) (#1) 2024 06/29/2023, 05/19/2022, 08/17/2021, Additional history exists GFR 06/29/2024 06/29/2023, 04/22, 06/13/2020 TSH 06/29/2024 06/29/2023, 04/22, 07/31/2021, Additional history exists HbA1c 09/01/2024 03/01/2024, 03/2023, 03/24/2023, Additional history exists Diabetic Eye Exam 02/21/2025 02/22/2024, 11/16/2021 Albumin/Creatinine Ratio 03/01/2025 024, 12/02/2022, 11/09/2021, Additional history exists Colonoscopy 10/18/2027 10/18/2022, 09/23, 06/01/2017, Additional history exists Colorectal Cancer Screening 10/18/2027 DTaP,Tdap,and Td Vaccines (2 - Td or Tdap) 07/05/2028 07/05/2018 Lipid Panel 11/23/2028 11/24/2023, 03/2023, 05/10/2022, Additional history exists RETIRED - COLONOSCOPY-EVERY 5 YRS AGES 18-100 Discontinued 10/18/2022, 10/18/2022, 06/01/2017, Additional history exists Lung Cancer Screening Completed 01/31/2024 HPV (Gardasil) Vaccine Aged Out No lo nger eligible based on patient's age to complete this topic Hepatitis B Vaccine Aged Out No longe r eligible based on patient's age to complete this topic MENINGOCOCCAL (MENACTRA/MENVEO) Aged Out No longer eligible based on patient's age to complete this topic documented as of this encounter Medical Devices Not on filedocumented as of this encounter Visit Diagnoses Diagnosis Hypoxia- Primary Hypoxemia Tobacco dependence Tobacco use disorder Suspected sleep apnea Type 2 diabetes mellitus with hemoglobin A1c goal of less than 7.0% (HCC) Acquired hypothyroidism Unspecified hypothyroidism Dyslipidemia Other and unspecified hyperlipidemia documented in this encounter Care Teams Grapple Operator Relationship Specialty Start Date End Date Salbador Rendon III, MD [address] [place] [address] PCP - General Family Medicine 05/28/20 documented as of this encounter
--- OUTSIDE RECORDS SUMMARY | 2024-03-23 02:16 | External Medical Summary | Summary of Care ---
Author Name Unknown Organization [facility] Address [address] [place] [address] Phone [phone] Care Team Providers Care Superintendent [employer] Name Role Phone Justice DOUGHERTY MD, Salbador Maddox Primary Care Provider [phone] Reason for Visit * Reason Comments Nurse Documentation Encounter Details Date Type Department Care Team (Late st Contact Info) Description 03/22/2024 11:00 AM EDT Nurse Only Ancillary [facility] [address] [place] [address] [facility] [address] [place] [address] Nurse Documentation Allergies Active Allergy Reactions Criticality Noted Date [...] daily E11.9 100 Each 6 06/18/2020 Active Contour Next Monitor w/Device Kit Use as directed. Test one to four times a day. E11.9 1 Kit 09/03/2020 Active Contour Next Test In Vitro Strip (Glucose [...] on file documented as of this encounter Last Filed Vital Signs Vital Sign Reading Time Taken Comments Blood Pressure - - Pulse 94 03/22/2024 8:57 AM EDT Temperature 37 C (98.6 F) 03/22/2024 8:53 AM EDT Respiratory Rate 22 03/22/2024 8:53 AM EDT Oxygen Saturation 91% 03/22/2024 8:57 AM EDT 2L NC Inhaled Oxygen Concentration - - Weight - - Height - - Body Mass Index - - documented in this encounter Progress Notes * Pavithra Young LPN - 03/22/2024 9:11 AM EDT Patient stopped by family practice with concerns for shortness of breath. Patient was in the clinicto see pain medicine. Brought patient back to exam room and checked O2. O2 read 83% on room air. Applied oxygen to patient, 2L via nasal cannula. O2 came up to 91% after deep breathing with O2. Patient states he has been dealing with shortness of breath for the last week or so. States he has been waking up in the middle of the night gasping for air. Med list reviewed. Patient overbooked with a provider in clinic for evaluation. documented in this encounter Plan of Treatment Upcoming Encounters Date Type Department Care Team (Late st Contact Info) Description 03/22/2024 10:00 AM EDT Office Visit Family Practice [facility] [address] [address] Maximilian Willett MD [address] [address] Hypoxia*; Tobacco dependence; Suspected sleep apnea; Type 2 diabetes mellitus with hemoglobin A1c goal of less than 7.0% (HCC); Acquired hypothyroidism; Dyslipidemia 06/05/2024 10:40 AM EDT Office Visit Podiatry [facility] [address] [address] Brandee Oden DPM [address] [address] 07/30/2024 12:40 PM EST Office Visit Family Practice [facility] [address] [facility] [place] [address] Teodora Matias MD [address] [facility] [place] [address] Scheduled Procedures Name Priority Associated Diagnoses Date/Ti me COLONOSCOPY FLEXIBLE PROXIMAL DIAGNOSTIC Recall History of colon polyps Health Maintenance Due Date Last Done Comments DISCUSS TOBACCO CESSATION (REFER TO SMARTSET #9692) 1960 HIV Screening 02/02/1975 Cologuard 02/02/2005 Fecal Occult Blood Test 02/02/2005 Sigmoidoscopy 02/02/2005 Zoster Vaccines (1 of 2) 02/02/2010 Depression Screening 05/28/2021 05/28/2020 Pneumococcal Vaccine: Pediatrics (0 to 5 Years) and At-Risk Patients (6 to 64 Years) (2 of 2 - PCV) 08/17/2022 08/17/2021 COVID-19 Vaccine (3 - 2022- season) 2023 05/20/2021, 04/22/2021 Diabetic Foot Exam 12/23/2023 12/22/2022, 0 11/16/2021, 12/08/2020 Influenza Vaccine (FLU shot) (#1) 2024 06/29/2023, 05/19/2022, 08/17/2021, Additional history exists GFR 06/29/2024 06/29/2023, 04/22, 06/13/2020 TSH 06/29/2024 06/29/2023, 04/22, 07/31/2021, Additional history exists HbA1c 09/01/2024 03/01/2024, 11/0 03/2023, 03/24/2023, Additional history exists Diabetic Eye Exam 02/21/2025 02/22/2024, 11/16/2021 Albumin/Creatinine Ratio 03/01/202503/01/2 024, 12/02/2022, 11/09/2021, Additional history exists Colonoscopy 10/18/2027 10/18/2022, 09/23, 06/01/2017, Additional history exists Colorectal Cancer Screening 10/18/2027 DTaP,Tdap,and Td Vaccines (2 - Td or Tdap) 07/05/2028 07/05/2018 Lipid Panel 11/23/2028 11/24/2023, 110 03/2023, 05/10/2022, Additional history exists RETIRED - [...] Not on filedocumented as of this encounter Care Teams Superintendent [employer] Relationship Specialty Start Date End Date Salbador Rendon III, MD [address] [place] [address] PCP - General Family Medicine 05/28/20 documented as of this encounter
--- OUTSIDE RECORDS SUMMARY | 2024-03-23 02:16 | External Medical Summary | Summary of Care ---
Author Name Unknown Organization [facility] Address [address] [place] [facility] [place] [address] Phone [phone] Care Team Providers Care Assistant Finance Manager Name Role Phone Justice DOUGHERTY MD, Salbador Bceker Primary Care Provider [phone] Reason for Visit * Reason Comments Neck Pain Left sided neck pain constant sharp/dull/achy that radiates in left shoulder and to upper arm. Numbness to fingers of left hand. X 2 months no trauma * Evaluate & Treat - Unlimited Visits (Within 30 days (routine)) - Pending Review Specialty Diagnoses / Procedures Referred By Jatinder prasad Referred To Contact Pain Management / Pain Medicine Diagnoses Cervical disc disorder with radiculopathy Calcific tendinitis of left shoulder region Sen Lord MD [address] [place] [id number] Referral ID Status Reason Start Date Expiration Date Visits Requested Visits Authorized [id number] Pending Review Specialty Services Required 02/02/[phone] Encounter Details Date Type Department Care Team (Late st Contact Info) Description 03/22/2024 8:00 AM EDT Office Visit Interventional Pain Center, [facility] [address] [place] [address] Isis Pierson PA-C [address] [place] [address] Cervical radicular pain*; Chronic left shoulder pain Allergies Active Allergy Reactions Criticality Noted Date [...] daily E11.9 100 Each 6 06/18/2020 Active Azte[employer] Mobile Next Monitor w/Device Kit Use as directed. [...] Active Problems Problem Noted Date Diagnosed Date Acquired hypothyroidism 11/16/2021 Dyslipidemia 11/16/2021 Type 2 [...] as of this encounter Progress Notes * Isis Pierson PA-C - 03/22/2024 8:02 AM EDT GENERAL HISTORY & PHYSICAL EXAMINATION - Anesthesia and Pain Service Name: Abilio Georges Location: [facility], [facility] REFERRING PHYSICIAN: Sen Lord MD Thank you for referring Abilio Georges. CHIEF COMPLAINT: Neck pain, L UE numbness HPI: Abilio Georges is a 64 year old male who complains of L neck pain that radiates to L UE extending to distal bicep. This pain started three months ago without preceding injury - ?sleeping wrong. Evaluated by primary care 01/23, updated C spine xray and subsequently considered EMG thru MyG, although appears this was not completed. Referred to ortho for concern of shoulder pathology - Dr. Lord 02/01, recommended conservative care and placed referral to our clinic with concern for cervical radiculopathy, also considering shoulder MRI. Reviewed C spine xray 01/31/24 - loss of cervical lordosis withsubluxation C4/5 and C5/6, multilevel facet arthropathy with endplate disease, no acute compressionchanges. No recent C spine MRI or CT. Mild relief with conservative care including physical therapy(Delores Vinson, twice weekly - still enrolled - notes PT is requesting MRI.) Symptoms occur daily. Describes pain as sharp, dull and aching. Pain is constant, rated 1/10 at least, 6/10 on average, increases to 8/10. R hand dominant. Aggravating factors include: L shoulder flexion or adduction. A lleviating factors include: rest, stretching. Admits associated paresthesia L hand, predominately ring and pinky. Weakness L UE compared to R. Some dexterity changes L compared to R - difficulty clipping finger nails recently. Decreased ROM L shoulder. Denies R UE paresthesia or radicular pain. Denies bowel or bladder incontinence. Denies hx spine surgery or injections. Denies hx shoulder surgeryor injections. Significant past medical hx includes: DM type II. Current medications used for pain: ibuprofen. Anticoagulation therapy: no Diabetic: yes, most recent HbA1c 8.27 February 2024 PAST MEDICAL HISTORY: Past Medical History: Diagnosis Date Deafness in left ear Kidney stones Past Medical History - Pertinent Findings: (-) clotting disorder PAST SURGICAL HISTORY: Past Surgical History: Procedure Laterality Date COLONOSCOPY, DIAGNOSTIC (RECTUM) 10/18/2022 benign adenomatous polyp, repeat 5 yrs / COLONOSCOPY FLEXIBLE PROXIMAL DIAGNOSTIC performed by MD Dominique at ENDOSCOPY [facility] DENTAL SURGERY PROCEDURE NEC Bilateral EXCISE BENIGN LESION, TRUNK, ARM, LEG, 2.1 - 3.0 CM Right 08/26/2023 EXCISION BENIGN LESION EXCEPT SKIN TAG TRUNK ETC 2.1 TO 3.0CM performed by Isabel Yanez MD at OR [facility] REMOVAL OF TONSILS, UNDER AGE 12 REPAIR INGUINAL HERNIA, UNDER AGE 5 Left UMBIL HERNIA REPAIR (REDUCIBLE) AGE 5+YR N/A FAMILY HISTORY: Family History Problem Relation Name Age of Onset Cancer Mother Diabetes Father Colon cancer Brother Skin cancer Brother Family History - Pertinent Findings: (-) clotting disorder SOCIAL HISTORY: Social History Tobacco Use Smoking status: Every Day Current packs/day: 1.00 Average packs/day: 1 pack/day for 40.2 years (40.2 ttl pk-yrs) Types: Cigarettes Start date: 01/25/1984 Smokeless tobacco: Never Substance Use Topics Alcohol use: Not on file Drug use: Not on file CURRENT MEDICATIONS: Note that discontinued and completed medications (per the MAR) continue to display for 24 hours. Ordered medications to be given in the future also display. Current Outpatient Medications Medication Sig Dispense Refill [...] No current facility-administered medications for this visit. ALLERGIES: Pollen ROS: Constitutional: Negative for fatigue, fever, appetite change, unexplained weight loss. ENT: Negative for hearing loss, sore throat. Respiratory: Negative for cough, shortness of breath, dyspnea. Musculoskeletal: Negative for mid-back or low back pain. + neck, L UE pain - see HPI Neurological: Negative for headaches, seizures. + paresthesias L UE - see HPI Genitourinary: Negative for dysuria, urinary frequency, hematuria. Hematologic/ Lymphatic: Negative for easy bleeding, bruising, lymphadenopathy. Gastrointestinal: Negative for abdominal pain, nausea, vomiting, constipation, diarrhea. Cardiovascular: Negative for chest pain, palpitations, ankle swelling, orthopnea. PHYSICAL EXAMINATION: Most Recent Vital Signs: There were no vitals filed for this visit. General Appearance: Patient appears to be about stated age, pleasant and cooperative with normal affect. HEENT: head normocephalic and pupils equal round and reactive to light and accommodation, EOMI Cervical Spine: Normal cervical lordatic curvature is present. No masses palpable. Midline nontender. + LEFT paraspinal tenderness without myofascial trigger points. Mildly limited active ROM with flexion, extension, rotation and lateral bending bilaterally. Increased pain with extension and rotation. Cervical Spine Provocative Testing: Spurling's Test: positive L, negative R Cervical Facet Loading: positive bilaterally B Shoulder: No obvious deformity. No muscle atrophy. Mild TTP left anterior shoulder. Sternoclavicular joint, clavicle, scapular spine nontender. Limited passive ROM flexion, extension, adduction, abduction, internal rotation, external rotation. Empty Can: positive L, negative R Neers: positive L, negative R Extremity Strength: Shoulder abduction: 5/5 bilaterally Elbow Extension: 5/5 bilaterally Elbow Flexion: 5/5 bilaterally Hris Developer: Equal and symmetric Hip Flexion: 5/5 bilaterally Hip Adduction: 5/5 bilaterally Hip Abduction: 5/5 bilaterally Great Toe Extension: 5/5 bilaterally Deep Tendon Reflex: Biceps: 2/4 bilaterally Triceps: 2/4 bilaterally Brachioradialis: 2/4 bilaterally Patellar: 2/4 bilaterally Achilles: 2/4 bilaterally Sensation: Dermatomal sensation not formally tested. Grossly normal and symmetric unless otherwise specified. Gait: Intact, no sign of ataxia. Ambulates without assistance. IMAGING: XR C SPINE 4-5 VIEWS - 01/31/2024 4:22 pm Straightening of cervical lordosis with 1-2 mm anterior subluxation C4-C5 and C5-C6, most likely degenerative given multilevel facet arthropathy. Disc space heights are preserved. Mild multilevel endplate spurring. Neural foraminal narrowing at multiple levels, greatest on the right at C3-C4 (moderate). No acute fracture. Bilateral carotid calcifications. IMPRESSION Mild degenerative changes. ASSESSMENT: Cervical radicular pain, LEFT L shoulder pain PLAN: Persistent L neck pain that radiates to L UE, associated paresthesia in C7/8 pattern. Mild to moderate relief with physical therapy - twice weekly x's two weeks. Will continue physical therapy and home stretching program. Personally reviewed C spine xray 01/31/24 - loss of cervical lordosis with subluxation C4/5 and C5/6, multilevel facet arthropathy with endplate disease, no acute compression changes. Question shoulder pathology, significantly limited passive ROM. Can contact clinic directly once PT is completed - is symptoms continue to extend into UE, anticipate ordering C spine MRI. He also notes one to two weeks of SOB, typically at night. Chronic cough which he related to sinus drainage. Denies productive cough, dyspnea on exertion. Has not mentioned this to primary care office. Nonlabored breathing, ambulating without assistance. Encouraged to call/message PCP clinic. Isis Pierson PA-C 03/22/2024 documented in this encounter Nursing Notes * Trice Beyer LPN - 03/22/2024 8:09 AM EDT Patient presents for Left sided neck pain constant sharp/dull/achy that radiates in left shoulder and to upper arm. Numbness to fingers of left hand. X 2 months no trauma decreased ROM with left arm. PT: Karel Estrella currently No previous injections. No previous neck or back surgeries XR C spine 01/31/24 XR Shoulder 02/02/24 documented in this encounter Plan of Treatment Upcoming Encounters Date Type Department Care Team (Late st Contact Info) Description 03/22/2024 10:00 AM EDT Office Visit Family Practice [facility] [address] [facility] [place] [address] Maximilian Willett MD [address] [facility] [place] [address] Arrived 03/22/2024 11:00 AM EDT [facility] [address] [facility] [place] [address] Nurse Luiz Avila [address] [facility] [place] [address] Nurse Documentation 06/05/2024 10:40 AM EDT Office Visit [facility] [address] [facility] [place] [address] Brandee Oden, KEVINM [address] [place] [address] 07/30/2024 12:40 PM EST Office Visit [facility] [place] [address] [facility] [place] [address] Teodora Matias MD [address] [facility] [place] [address] Scheduled Procedures Name Priority Associated Diagnoses Date/Ti me COLONOSCOPY FLEXIBLE PROXIMAL DIAGNOSTIC Recall History of colon polyps Scheduled Referrals Name Type Priority Associated Diagnoses Orde r Schedule PAIN MEDICINE REFERRAL OP Referral Within 30 days (routine) Cervical disc disorder with radiculopathy Calcific tendinitis of left shoulder region Ordered: 02/02/2024 Health Maintenance Due Date Last Done Comments DISCUSS TOBACCO CESSATION (REFER TO SMARTSET #[id number]) 1960 HIV Screening 02/02/1975 Cologuard 02/02/2005 Fecal [...] 07/31/2021, Additional history exists HbA1c 09/01/2024 03/01/2024, 11/03/2023, 03/24/2023, Additional history exists Diabetic Eye Exam [...] as of this encounter Visit Diagnoses Diagnosis Cervical radicular pain- Primary Brachial neuritis or radiculitis nos Chronic left shoulder pain Pain in joint, shoulder region documented in this encounter Care Teams Assistant Finance Manager Relationship Specialty Start Date End Date Salbador Rendon III, MD [address] [place] [address] PCP - General Family Medicine 05/28/20 documented as of this encounter
--- OUTSIDE RECORDS SUMMARY | 2024-03-23 02:17 | External Medical Summary | Summary of Care ---
Author Name Unknown Organization [facility] Address [address] [place] [facility] [place] [place] [address] Phone [phone] Care Team Providers Care Medical Sociologist Name Role Phone Justice DOUGHERTY MD, Salbador Becker Primary Care Provider [phone] Reason for Visit * Reason Comments Diabetic Foot Care Encounter Details Date Type Department Care Team (Late st Contact Info) Description 03/01/2024 11:00 AM EDT Office Visit Podiatry [facility] [address] [place] [address] Brandee Oden DPM [address] [place] [address] Thickened nails*; Type 2 diabetes mellitus with hemoglobin A1c goal of less than 7.0% ([facility]); Pain in toes of both feet Allergies Active Allergy Reactions Criticality Noted Date Comments Pollen Other (Please comment) 11/16/2021 Excessive post nasal drip documented as of this encounter (statuses as of 03/01/2024) Medications Medication Sig Dispensed Refills Start Date End Date Status Ibuprofen 200 MG Oral Tablet (MOTRIN) Take 1 Tablet by mouth every 4 hours as needed. Active Vitamin D 25 MCG (1000 UT) Oral Tablet Take by mouth. Active OneTouch Delica Lancets 33G Check up to 4 times daily E11.9 100 Each 6 06/18/2020 Active Extricom Next Monitor w/Device Kit Use as directed. Test one to four times a day. E11.9 1 Kit 09/03/2020 Active Extricom Next Test In Vitro Strip (Glucose Blood) [...] as of this encounter (statuses as of 03/01/2024) Active Problems Problem Noted Date Diagnosed Date Acquired hypothyroidism 11/16/2021 Dyslipidemia 11/16/2021 Type 2 diabetes mellitus wit h hemoglobin A1c goal of less than 7.0% 09/03/2020 documented as of this encounter (statuses as of 03/01/2024) Immunizations Name Administration Dates Next Due COVID-19 mRNA, LNP-s, No Pre serve, 2-Dose Series (Moderna) 05/20/2021,04/22/2021 Pneumococcal Polysaccharide PPV23 (Pneumovax) 08/17/2021 Seasonal Influenza, PF, 6 M & above, IM , (FluLaval or Fluzone) 06/29/2023,05/19/2022,08/17/2021,05/28 TDAP (age 10 and older)(Boostrix) 07/05/2018 documented as of this encounter Social History Tobacco Use Types Packs/Day Years Used Date Smoking Tobacco: Every Day Cigarettes 1 40.1 Started: 01/25/1984 Smokeless Tobacco: Never PHQ-2 Answer [...] as of this encounter Progress Notes * Brandee Oden DPM - 03/01/2024 10:57 AM EDT Podiatry Established Patient Note [facility] Name: Abilio Georges : 1960 Date: 03/01/2024 CHIEF COMPLAINT: Diabetic Nail Care HISTORY OF PRESENT ILLNESS: This patient is a 64 year old male who presents today for diabetic nailcare. Denies any pain. Would only like his great toes trimmed today. Past Medical History: Diagnosis Date Deafness in left ear Kidney stones Past Surgical History: Procedure Laterality Date COLONOSCOPY, DIAGNOSTIC (RECTUM) 10/18/2022 benign adenomatous polyp, repeat 5 yrs / COLONOSCOPY FLEXIBLE PROXIMAL DIAGNOSTIC performed by MD Dominique at ENDOSCOPY [facility] DENTAL SURGERY PROCEDURE NEC Bilateral EXCISE BENIGN LESION, TRUNK, ARM, LEG, 2.1 - 3.0 CM Right 08/26/2023 EXCISION BENIGN LESION EXCEPT SKIN TAG TRUNK ETC 2.1 TO 3.0CM performed by Isabel Yanez MD at OR [facility] REMOVAL OF TONSILS, UNDER AGE 12 REPAIR INGUINAL HERNIA, UNDER AGE 5 Left UMBIL HERNIA REPAIR (REDUCIBLE) AGE 5+YR N/A Family History Problem Relation Name Age of Onset Cancer Mother Diabetes Father Colon cancer Brother Skin cancer Brother Social History Socioeconomic History Marital status: Single Spouse name: Not on file Number of children: Not on file Years of education: Not on file Highest education level: Not on file Occupational History Not on file Social Needs Financial resource strain: Not on file Food insecurity Worry: Never true Inability: Never true Transportation needs Medical: Not on file Non-medical: Not on file Tobacco Use Smoking status: Current Every Day Smoker Types: Cigarettes Substance and Sexual Activity Alcohol use: Not on file Drug use: Not on file Sexual activity: Not on file Lifestyle Physical activity Days per week: Not on file Minutes per session: Not on file Stress: Not on file Relationships Social connections Talks on phone: Not on file Gets together: Not on file Attends mormonism service: Not on file Active member of club or organization: Not on file Attends meetings of clubs or organizations: Not on file Relationship status: Not on file Intimate partner violence Fear of current or ex partner: Not on file Emotionally abused: Not on file Physically abused: Not on file Forced sexual activity: Not on file Other Topics Concern Not on file Social History Narrative Not on file Vaping/E-Cigarette Use Vaping/E-Cigarette Substances Vaping/E-Cigarette Devices Current Outpatient Medications Medication Sig Dispense Refill [...] current facility-administered medications for this visit. ALLERGIES: Review of patient's allergies indicates: Allergen Reactions Pollen Other (Please comment) Excessive post nasal drip REVIEW OF SYSTEMS: CONSTITUTIONAL: No change in weight, No weakness, No fatigue and No fevers, sweats, or chills EYE: No recent significant change in vision and No eye pain, redness, discharge EARS: No ear pain and No recent change in hearing NOSE: No history of frequent colds or sinusitis and No nasal stuffiness PULMONARY: No cough, sputum, or hemoptysis and No recent change in breathing CARDIOVASCULAR: No chest pain, No shortness of breath and No syncope EXTREMITIES: No pain SKIN/INTEGUMENTARY: No edema, No rash and No itching NEUROLOGIC: Normal balance, No headaches, No seizures and No weakness PSYCHIATRIC: No depression, No anxiety and No psychosis FOCUSED PODIATRIC EXAM: Vitals: There were no vitals filed for this visit. General: Patient is awake alert oriented to person place time. No apparent distress. Vascular: DP/PT pulses palpable, rosemary. CFT < 3 sec 1-5, rosemary. No edema noted, rosemary. Temperature gradient is normal warm to cold, rosemary. Neurologic: Protective sensation intact to light touch, rosemary. Sensation to sharp/dull is intact, rosemary. Proprioception is intact, rosemary. Vibratory sensation intact, rosemary. Protective sensation to 5.07 monofilament is intact, rosemary. There is no babinski response elicited, rosemary. Ankle clonus is absent, rosemary. Dermatological: Skin is normal in appearance with no open lesions or interdigital macerations, rosemary. Nails 1-5, rosemary are normal in thickness and elongated. Pedal hair is noted, rosemary. Musculoskeletal: POP noted to the toes, rosemary. No pain with active or passive ROM of the digits or ankle joint, rosemary. Muscle strength is 5/5 for all muscle groups of the lower extremity, rosemary. DIAGNOSTIC STUDIES: None ASSESSMENT: 1. DM2 2. Disorder of nail 3. Pain in toes, rosemary PLAN: - Discussed with pt the importance of maintaining a controlled blood sugar and checking his feet daily - Nails 1-5, rosemary were trimmed with a nail nipper. - Continue wearing good, supportive shoes. - Pt to RTC in 3 months for further nail. Instructed pt to call sooner with any problems or questions. Brandee Oden DPM documented in this encounter Nursing Notes * Rosie Estevez LPN - 03/01/2024 10:41 AM EDT Pt presents for routine diabetic foot care, no pain in feet. Does not test BSG. documented in this encounter Plan of Treatment Upcoming Encounters Date Type Department Care Team (Late st Contact Info) Description 03/01/2024 11:20 AM EDT Laboratory Laboratory, [facility] [address] [place] [phone] [facility] [address] [facility] [place] [address] [employer] Other*[id number]; Type 2 diabetes mellitus with hemoglobin A1c goal of less than 7.0% ([facility]) 03/22/2024 8:00 AM EDT Office Visit Interventional Pain Center, [facility] [address] [facility] [place] [address] Isis Pierson PA-C [address] [place] [address] 06/05/2024 10:40 AM EDT Office Visit Podiatry [facility] [address] [facility] [place] [address] Brandee Oden DPM [address] [facility] [place] [address] 07/30/2024 12:40 PM EST Office Visit Family Practice [facility] [address] [facility] [place] [address] Teodora Matias MD [address] [place] [address] Scheduled Procedures Name Priority Associated Diagnoses Date/Ti me COLONOSCOPY FLEXIBLE PROXIMAL DIAGNOSTIC Recall History of colon polyps Health Maintenance Due Date Last Done Comments DISCUSS TOBACCO CESSATION (REFER TO SMARTSET #[id number]) 1960 HIV Screening 02/02/1975 Cologuard 02/02/2005 Fecal Occult Blood Test 02/02/2005 Sigmoidoscopy 02/02/2005 Zoster Vaccines (1 of 2) 02/02/2010 Depression Screening 05/28/2021 05/28/2020 Pneumococcal Vaccine: Pediatrics (0 to 5 Years) and At-Risk Patients (6 to 64 Years) (2 of 2 - PCV) 08/17/2022 08/17/2021 COVID-19 Vaccine (3 - 2022-24 season) 2023 05/20/2021, 04/22/2021 Albumin/Creatinine Ratio 12/03/2023 023, 11/09/2021, 07/31/2021, Additional history exists Diabetic Foot Exam 12/23/2023 12/22/2022, 0 11/16/2021, 12/08/2020 HbA1c 12/28/2023 06/29/2023, 08/10/2022, 12/02/2022, Additional history exists Influenza Vaccine (FLU shot) (#1) 2024 06/29/2023, 05/19/2022, 08/17/2021, Additional history exists GFR 06/29/2024 06/29/2023, 04/22, 06/13/2020 TSH 06/29/2024 06/29/2023, 04/22, 07/31/2021, Additional history exists Diabetic Eye Exam 02/21/2025 02/22/2024, 11/16/2021 Colonoscopy 10/18/2027 10/18/2022, 09/23, 06/01/2017, Additional history exists Colorectal Cancer Screening 10/18/2027 DTaP,Tdap,and Td Vaccines (2 - Td or Tdap) 07/05/2028 07/05/2018 Lipid Panel 11/23/2028 11/24/2023, 11/0 03/2023, 05/10/2022, Additional history exists RETIRED - [...] as of this encounter Visit Diagnoses Diagnosis Thickened nails- Primary Other specified disease of nail Type 2 diabetes mellitus with hemoglobin A1c goal of less than 7.0% (HCC) Pain in toes of both feet [employer] Other*[id number] Type 2 diabetes mellitus with hemoglobin A1c goal of less than 7.0% (HCC) documented in this encounter Care Teams Medical Sociologist Relationship Specialty Start Date End Date Salbador Rendon III, MD [address] [facility] [address] PCP - General Family Medicine 05/28/20 documented as of this encounter
--- OUTSIDE RECORDS SUMMARY | 2024-03-23 02:17 | External Medical Summary | Summary of Care ---
Author Name Unknown Organization [facility] Address [address] [place] [address] Phone [phone] Care Team Providers Care Cash Controller Name Role Phone Justice DOUGHERTY MD, Salbador Becker Primary Care Provider [phone] Reason for Referral * Evaluate & Treat - Unlimited Visits (Within 30 days (routine)) - Pending Review Specialty Diagnoses / Procedures Referred By Contac osmar Referred To Contact Pain Management / Pain Medicine Diagnoses Cervical disc disorder with radiculopathy Calcific tendinitis of left shoulder region Sen Lord MD [address] [place] [address] Referral ID Status Reason Start Date Expiration Date Visits Requested Visits Authorized [id number] Pending Review Specialty Services Required 02/02/[phone] Question Answer Referral Priority Within 30 days (routine) Where should this appointment be scheduled? [facility] Reason for referral? Interventional Pain Management - (Injection) What condition is the patient being referred for? Cervical Radiculopathy What is the preferred location to have this test performed? [facility] Comments Patient Name: Abilio Georges Date of : 1960 Department Phone Number: MRI or CT (if unable to have a MRI) is recommended if any of the following apply: 1. Patient has neck or back pain with radiation to extremities. A previous MRI will be accepted if symptoms unchanged since prior MRI. 2. Spinal surgery since last MRI. If yes, order a MRI with and without contrast. 3. Hx or ongoing cancer treatment. Patient will need spine x-ray (Ap/Lat) for axial neck or back pain if not done previously. Fax No. [facility] [phone] or contact trouble locator test desk [phone] Fax No. [facility] [phone] or contact trouble locator test desk [phone] Fax No. [facility] [phone] or contact trouble locator test desk [phone] * Evaluate & Treat - Unlimited Visits (Within 10 days (routine)) - Pending Review Specialty Diagnoses / Procedures Referred By Jatinder prasad Referred To Contact Physical Therapy / Physical Medicine And Rehab Diagnoses Cervical disc disorder with radiculopathy Calcific tendinitis of left shoulder region Sen Lord MD [address] [place] [address] Referral ID Status Reason Start Date Expiration Date Visits Requested Visits Authorized [id number] Pending Review Specialty Services Required 02/02/[phone] Question Answer Referral Priority Within 10 days (routine) Where should this appointment be scheduled? [facility] Comments Cervical radiculopathy, rotator cuff calcific tendinitis Rotator cuff program scapular stabilizing exercises Neck school Home Thera-Band program Modalities as needed 2 to 3 times a week for 6-8 weeks Reason for Visit * Reason Comments NEW PATIENT Left shoulder * Evaluate & Treat - Unlimited Visits (Within 10 days (routine)) - Pending Review Specialty Diagnoses / Procedures Referred By Jatinder prasad Referred To Contact Orthopaedic Surgery / Orthopedics Diagnoses Adhesive capsulitis of left shoulder Acute pain of left shoulder Teodora Matias MD [address] [place] [address] Referral ID Status Reason Start Date Expiration Date Visits Requested Visits Authorized [id number] Pending Review Specialty Services Required 01/24/[phone] Encounter Details Date Type Department Care Team (Late st Contact Info) Description 02/02/2024 2:00 PM EDT Office Visit Orthopaedics [facility] [address] [place] [address] Sen Lord MD [address] [place] [address] Cervical disc disorder with radiculopathy*; Calcific tendinitis of left shoulder region Allergies Active Allergy Reactions Criticality Noted Date Comments Pollen Other (Please comment) 11/16/2021 Excessive post nasal drip documented as of this encounter (statuses as of 03/05/2024) Medications Medication Sig Dispensed Refills Start Date End Date Status Ibuprofen 200 MG Oral Tablet (MOTRIN) Take 1 Tablet by mouth every 4 hours as needed. Active Vitamin D 25 MCG (1000 UT) Oral Tablet Take by mouth. Active OneTouch Delica Lancets 33G Check up to 4 times daily E11.9 100 Each 6 06/18/2020 Active [employer] Next Monitor w/Device Kit Use as directed. [...] as of this encounter (statuses as of 03/05/2024) Active Problems Problem Noted Date Diagnosed Date Acquired hypothyroidism 11/16/2021 Dyslipidemia 11/16/2021 Type 2 diabetes mellitus wit h hemoglobin A1c goal of less than 7.0% 09/03/2020 documented as of this encounter (statuses as of 03/05/2024) Immunizations Name Administration Dates Next Due COVID-19 [...] as of this encounter Progress Notes * Sen Lord MD - 02/02/2024 2:40 PM EDT CHIEF COMPLAINT: Chief Complaint Patient presents with NEW PATIENT Left shoulder Impression: M50.10 Cervical disc disorder with radiculopathy (primary encounter diagnosis) M75.32 Calcific tendinitis of left shoulder region Plan: We discussed the diagnosis and treatment options with the patient today. At this time patient does have symptoms consistent with cervical radiculopathy. There are also signs of shoulder impingement and tendinitis. We will recommend that the patient undergo a course of physical therapy for the shoulder and the neck. We will recommend further evaluation of the cervical spine by pain management. Follow Up: Return Follow up in 4-6 weeks, for Referral to pain management for cervical radiculopathy, Clinic Visit. | For: Referral to pain management for cervical radiculopathy, Clinic Visit. If his shoulder pain persist after physical therapy patient may benefit from an MRI scan of the left shoulder to evaluate for intra-articular pathology. There are no Patient Instructions on file for this visit. HISTORY OF PRESENT ILLNESS: Abilio Georges is a 63 year old right hand dominant male who presents to orthopedic Sports Medicine for consultation at the request of Salbador Rendon III, MD to us with a history of left arm tingling numbness and left shoulder pain . Patient states that over the last 6 weeks he is developed shoulder pain and left hand numbness. He denies any previous injury. States he has had difficulty with raising thearm above his head. He does complain of some pain in the posterior aspect of the shoulder as well as the anterior aspect of the shoulder. He has had no formal treatment for the shoulder. He recently saw his primary care physician and underwent x-rays of the cervical spine and x-rays of the shoulder. Wakes at night? no. Physical Therapy? no. Injections? no. Nursing Notes: Vilma Flores LPN 02/02/24 1404 Sign at exiting of workspace Ref by Teodora Matias MD for left shoulder and pain and numbness down into his forearm and all fingers. X 6 weeks. Pt is RHD NKI States he is losing measuring machine tender strength in his left hand. Even having difficulty using nail clippers. Pain mostly located in anterior shoulder but some in the left side of his neck. Pt retired from [employer]. Vilma Law LPN Past Surgical History: Procedure Laterality Date COLONOSCOPY, DIAGNOSTIC (RECTUM) 10/18/2022 benign adenomatous polyp, repeat 5 yrs / COLONOSCOPY FLEXIBLE PROXIMAL DIAGNOSTIC performed by MD Dominique at ENDOSCOPY [facility] DENTAL SURGERY PROCEDURE NEC Bilateral EXCISE BENIGN LESION, TRUNK, ARM, LEG, 2.1 - 3.0 CM Right 08/26/2023 EXCISION BENIGN LESION EXCEPT SKIN TAG TRUNK ETC 2.1 TO 3.0CM performed by Isabel Yanez MD at OR [facility] REMOVAL OF TONSILS, UNDER AGE 12 REPAIR INGUINAL HERNIA, UNDER AGE 5 Left UMBIL HERNIA REPAIR (REDUCIBLE) AGE 5+YR N/A Review of patient's allergies indicates: Allergen Reactions Pollen Other (Please comment) Excessive post nasal drip Current Outpatient Medications Medication Sig Dispense Refill [...] No current facility-administered medications for this visit. Social History Socioeconomic History Marital status: Single Tobacco Use Smoking status: Every Day Current packs/day: 1.00 Average packs/day: 1 pack/day for 40.0 years (40.0 ttl pk-yrs) Types: Cigarettes Start date: 01/25/1984 Smokeless tobacco: Never Social Determinants of Health Food Insecurity: Patient Declined (01/24/2024) Hunger Vital Sign Worried About Running Out of Food in the Last Year: Patient declined Ran Out of Food in the Last Year: Patient declined Family History Problem Relation Name Age of Onset Cancer Mother Diabetes Father Colon cancer Brother Skin cancer Brother Past Medical History: Diagnosis Date Deafness in left ear Kidney stones ROS: Constitional: No change in weight, No weakness, No fatigue, and No fevers, sweats, or chills Skin: No edema, No rash, and No itching Psychiatric: No depression, No anxiety, and No psychosis Xray: I personally reviewed the xrays. X-rays of the left shoulder from 02/02/2024 do not show any evidence fracture. No dislocation. No degenerative changes. No loose bodies. No evidence of proximalhumeral head migration. Patient presents with x-rays of the cervical spine from 01/31/2024. Those x-rays show evidence of loss of normal cervical lordosis consistent with paraspinal muscle spasms. No evidence spondylolysis or spondylolisthesis. PHYSICAL EXAM: General: generally well-nourished and in no acute distress HEENT: normocephalic, atraumatic, EOMI, sclera anicteric. Psych: mood and affect normal , cooperative Card: Peripheral pulses: normal in affected extremity (s) Resp: equal chest rise, non-tachypneic, non-labored breathing Skin: no rash, normal Neuro: Coordination: normal; Sensation: normal on affected extremity (s) Skin: normal. C-Spine evaluation: Does patient have neck symptoms and/or numbness/tingling in upper extremities: yes - Pain with active ROM: No Pain with palpation of the C-Spine: No Compression test: No Inspection: bilateral and symmetrical without apparent abnormality Shoulder ROM: ABD (170') - FROM Bilaterally ER (40') - FROM Bilaterally Passive ER -FROM Bilaterally IR (T10) - right T10 left T10 FF (180') - Bilateral and equal Scapular elevation with forward flexion:negativeBilateral Tenderness/Location: no Inspection AC Joint Prominence: normal Cross-arm maneuver: positive Impingement sign: positive Sulcus sign: negative Lift-off test: negative Apprehension:negative Millstadt's test: negative Load and shift: negative Speed's test: negative Drop-arm test: negative Instability Testing: Shoulder instability testing: not examined negative scapular winging negative scapular dyskinesis Strength: ABD: Right - 5/5 Left - 5/5 ER: Right - 5/5 Left - 5/5 IR: Right - 5/5 Left - 5/5 Biceps: Right - 5/5 Left - 5/5 "Empty can": Right - 5/5 Left - 5/5 Neurovascular assessment: negative for deficit Neck ROM: Extension 10 Flexion to the chest Spurlings test: Right negative Left negative Lateral bending and rotation pain: right negative left positive TTP: negative Ligamentous laxity testing: negative Bilateral Sen Lord MD [facility]opa[facility] [address] [place] [address] Orthopedic Sports Medicine Surgery 02/02/2024 2:40 PM This chart was completed in part utilizing [employer] Speech Voice Recognition Software. Grammatical errors, random word insertions, pronoun errors, and incomplete sentences are an occasional consequence of this system due to software limitations, ambient noise, and hardware issues. Any formal questions or concerns about the content, text, or information contained within the body of this dictation should be directly addressed to the provider for clarification. documented in this encounter Nursing Notes * Vilma Flores LPN - 02/02/2024 1:59 PM EDT Ref by Teodora Matias MD for left shoulder and pain and numbness down into his forearm and all fingers. X 6 weeks. Pt is RHD NKI States he is losing measuring machine tender strength in his left hand. Even having difficulty using nail clippers. Pain mostly located in anterior shoulder but some in the left side of his neck. Pt retired from [employer]. Vilma Law LPN documented in this encounter Plan of Treatment Upcoming Encounters Date Type Department Care Team (Late st Contact Info) Description 03/22/2024 8:00 AM EDT Office Visit Interventional Pain Center, [facility] [address] [place] [address] Isis Pierson PA-C [address] [place] [address] 06/05/2024 10:40 AM EDT Office Visit Podiatry [facility] [address] [place] [address] Brandee Oden DPM [address] [place] [address] 07/30/2024 12:40 PM EST Office Visit [facility] [address] [facility] [place] [address] Teodora Matias MD [address] [facility] [place] [address] Scheduled Procedures Name Priority Associated Diagnoses Date/Ti me COLONOSCOPY FLEXIBLE PROXIMAL DIAGNOSTIC Recall History of colon polyps Scheduled Referrals Name Type Priority Associated Diagnoses Orde r Schedule PHYSICAL THERAPY REFERRAL OP Referral Within 10 days (routine) Cervical disc disorder with radiculopathy Calcific tendinitis of left shoulder region Ordered: 02/02/2024 PAIN MEDICINE REFERRAL OP Referral Within 30 days (routine) Cervical disc disorder with radiculopathy Calcific tendinitis of left shoulder region Ordered: 02/02/2024 Health Maintenance Due Date Last Done Comments DISCUSS TOBACCO CESSATION (REFER TO SMARTSET #[id number]) 1960 HIV Screening 02/02/1975 Cologuard 02/02/2005 Fecal Occult Blood Test 02/02/2005 Sigmoidoscopy 02/02/2005 Zoster Vaccines (1 of 2) 02/02/2010 Depression Screening 05/28/2021 05/28/2020 Pneumococcal Vaccine: Pediatrics (0 to 5 Years) and At-Risk Patients (6 to 64 Years) (2 of 2 - PCV) 08/17/2022 08/17/2021 COVID-19 Vaccine ( season) 2023 05/20/2021, 04/22/2021 Diabetic Foot Exam [...] Not on filedocumented as of this encounter Procedures Procedure Name Priority Date/Time Associated Diagnosis Comments XR SHOULDER, 2 OR MORE VIEWS Routine 02/02/2024 2:23 PM EDT documented in this encounter Results * XR SHOULDER, 2 OR MORE VIEWS (02/02/2024 2:23 PM EDT) Anatomical Region Laterality Modality Upper Extremity, Shoulder Digita l Radiography 02/04/2024 8:22 PM EDT Impressions 02/04/2024 8:20 PM EDT IMPRESSION Calcific tendinitis of the rotator cuff. Narrative 02/04/2024 8:20 PM EDT EXAM XR SHOULDER, 2 OR MORE VIEWS-02/02/2024 2:23 pm HISTORY left shoudler pain COMPARISON Radiograph 01/26/2024 TECHNIQUE Grashey and transscapular Y-views left shoulder. FINDINGS Glenohumeral joint normally aligned and without significant arthropathy. Small cluster of amorphous calcification adjacent to the greater tuberosity. Procedure Note Anatoly Martinez MD - 02/04/2024 EXAM XR SHOULDER, 2 OR MORE VIEWS-02/02/2024 2:23 pm HISTORY left shoudler pain COMPARISON Radiograph 01/26/2024 TECHNIQUE Grashey and transscapular Y-views left shoulder. FINDINGS Glenohumeral joint normally aligned and without significant arthropathy.Small cluster of amorphous calcification adjacent to the greatertuberosity. IMPRESSION IMPRESSION Calcific tendinitis of the rotator cuff. Sen Lord MD RADIOLOGY (RAD G ENERAL) documented in this encounter Visit Diagnoses Diagnosis Cervical disc disorder with radiculopathy- Primary Brachial neuritis or radiculitis nos Calcific tendinitis of left shoulder region documented in this encounter Care Teams Cash Controller Relationship Specialty Start Date End Date Justice IIISalbador MD [address] [facility] [place] [address] PCP - General Family Medicine 05/28/20 documented as of this encounter
--- OUTSIDE RECORDS SUMMARY | 2024-03-23 02:17 | External Medical Summary | Summary of Care ---
Author Name Unknown Organization [facility] Address [address] [place] [address] Phone [phone] Care Team Providers Care Rig Mechanic Name Role Phone Justice DOUGHERTY MD, Salbador Becker Primary Care Provider [phone] Reason for Visit * Reason Comments Outpatient Testing Encounter Details Date Type Department Care Team (Late st Contact Info) Description 03/01/2024 11:20 AM EDT Laboratory Laboratory, [facility] [address] [place] [address] [facility] [address] [place] [address] [employer] Other*[id number]; Type 2 diabetes mellitus with hemoglobin A1c goal of less than 7.0% ([facility]) Allergies Active Allergy Reactions Criticality Noted Date [...] daily E11.9 100 Each 6 06/18/2020 Active [employer] Next Monitor w/Device Kit Use as directed. Test one to four times a day. E11.9 1 Kit 09/03/2020 Active [employer] Next Test In Vitro Strip (Glucose Blood) [...] on file documented as of this encounter Plan of Treatment Upcoming Encounters Date Type Department Care Team (Late st Contact Info) Description 03/22/2024 8:00 AM EDT Office Visit Interventional Pain Center, [facility] [address] [place] [address] Isis Pierson PA-C [address] [place] [address] 06/05/2024 10:40 AM EDT Office Visit Podiatry [facility] [address] [place] [address] Brandee Oden DPM [address] [place] [address] 07/30/2024 12:40 PM EST Office Visit Family Practice [facility] [address] [place] [address] Teodora Matias MD [address] [place] [address] Pending Results Name Type Priority Associated Diagnoses Date /Time MYCODE SUBSEQUENT ADULT Lab Routine [employer] Other*[id number] 03/01/2024 11:14 AM EDT HEMOGLOBIN A1C Lab Routine Type 2 diabetes mellitus with hemoglobin A1c goal of less than 7.0% ([facility]) 03/01/2024 11:14 AM EDT MYCODE SST1 Lab Routine [employer] Other*[id number] 03/01/2024 11:14 AM EDT MYCODE SST2 Lab Routine [employer] Other*[id number] 03/01/2024 11:14 AM EDT ALBUMIN / CREATININE RATIO, URINE Lab Routine Type 2 diabetes mellitus with hemoglobin A1c goal of less than 7.0% ([facility]) 03/01/2024 11:15 AM EDT Scheduled Procedures Name Priority Associated Diagnoses Date/Ti me COLONOSCOPY FLEXIBLE PROXIMAL DIAGNOSTIC Recall History of colon polyps Health Maintenance Due Date Last Done Comments DISCUSS TOBACCO CESSATION (REFER TO SMARTSET #[id number]) 1960 HIV Screening 02/02/1975 Cologuard 02/02/2005 Fecal [...] 12/22/2022, 0 11/16/2021, 12/08/2020 HbA1c 12/28/2023 06/29/2023, 08/0 10/2022, 12/02/2022, Additional history exists Influenza Vaccine (FLU shot) (#1) 2024 06/29/2023, 05/19/2022, 08/17/2021, Additional history exists GFR 06/29/2024 06/29/2023, 04/22, 06/13/2020 TSH 06/29/2024 06/29/2023, 04/22, 07/31/2021, Additional history exists Diabetic Eye Exam 02/21/2025 02/22/2024, 11/16/2021 Colonoscopy 10/18/2027 10/18/2022, 09/23, 06/01/2017, Additional history exists Colorectal Cancer Screening 10/18/2027 DTaP,Tdap,and Td Vaccines (2 - Td or Tdap) 07/05/2028 07/05/2018 Lipid Panel 11/23/2028 11/24/2023, 1103/2023, 05/10/2022, Additional history exists RETIRED - COLONOSCOPY-EVERY [...] as of this encounter Visit Diagnoses Diagnosis [employer] Other*[id number] Type 2 diabetes mellitus with hemoglobin A1c goal of less than 7.0% (H[facility]) documented in this encounter Care Teams Rig Mechanic Relationship Specialty Start Date End Date Salbador Rendon III, MD [address] [place] [address] PCP - General Family Medicine 05/28/20 documented as of this encounter
--- OUTSIDE RECORDS SUMMARY | 2024-03-23 02:17 | External Medical Summary | Summary of Care ---
Author Name Unknown Organization [facility] Address [address] [place] [address] Phone [phone] Care Team Providers Care Care Team Coordinator Scheduler Name Role Phone Justice DOUGHERTY MD, Salbador Becker Primary Care Provider [phone] Reason for Visit * Reason Onset Date Comments Health Maintenance 11/24/2023 Encounter Details Date Type Department Care Team (Late st Contact Info) Description 11/24/2023 Telephone Family Practice [facility] [address] [place] [address] Salbador Rendon III, MD [address] [place] [address] Health Maintenance Allergies Active Allergy Reactions Criticality Noted Date Comments Pollen Other (Please comment) 11/16/2021 Excessive post nasal drip documented as of this encounter (statuses as of 11/24/2023) Medications Medication Sig Dispensed Refills Start Date End Date Status Ibuprofen 200 MG Oral Tablet (MOTRIN) Take 1 Tablet by mouth every 4 hours as needed. 0 Active Vitamin D 25 MCG (1000 UT) Oral Tablet Take by mouth. 0 Active OneTouch Delica Lancets 33G Check up to 4 times daily E11.9 100 Each 6 06/18/2020 Active Narrative Next Monitor w/Device Kit Use as directed. Test one to four times a day. E11.9 1 Kit 0 09/03/2020 Active Narrative Next Test In Vitro Strip (Glucose Blood) Test one to four times a day. E11.9 100 Strip 11 09/03/2020 Active Lancets Contour next lancets. One to four times a day E11.9 100 Each 11 09/03/2020 Active Vitamin B-12 ER 1000 MCG Oral Tablet Extended Release Take by mouth daily. 0 Active Levothyroxine Sodium 25 MCG Oral Tablet (Levoxyl) TAKE 1 TABLET BY MOUTH DAILY FIRST THING IN THE MORNING AT LEAST 1/2 HOUR PRIOR TO BREAKFAST OR OTHER MEDS 90 Tablet 1 07/15/2023 Active Jardiance 25 MG Oral Tablet (Empagliflozin) TAKE 1 TABLET BY MOUTH DAILY 90 Tablet 3 07/15/2023 Active metFORMIN HCl 850 MG Oral Tablet (Glucophage) TAKE 1 TABLET BY MOUTH TWICE DAILY WITH MORNING AND EVENING MEALS 180 Tablet 3 07/15/2023 Active Atorvastatin Calcium 40 MG Oral Tablet (Lipitor) TAKE 1 TABLET BY MOUTH IN THE MORNING 90 Tablet 0 11/16/2023 Active documented as of this encounter (statuses as of 11/24/2023) Active Problems Problem Noted Date Diagnosed Date Acquired hypothyroidism 11/16/2021 Dyslipidemia 11/16/2021 Type 2 diabetes mellitus wit h hemoglobin A1c goal of less than 7.0% 09/03/2020 documented as of this encounter (statuses as of 11/24/2023) Immunizations Name Administration Dates Next Due COVID-19 mRNA, LNP-s, No Pre serve, 2-Dose Series (Moderna) 05/20/2021,04/22/2021 Pneumococcal Polysaccharide PPV23 (Pneumovax) 08/17/2021 Seasonal Influenza, PF, 6 M & above, IM , (FluLaval or Fluzone) 06/29/2023,05/19/2022,08/17/2021,05/28 TDAP (age 10 and older)(Boostrix) 07/05/2018 documented as of this encounter Social History Tobacco Use Types Packs/Day Years Used Date Smoking Tobacco: Every Day Cigarettes Smokeless Tobacco: Never PHQ-2 Answer Date Recorded PHQ-2 Score 0 05/28/2020 Hunger Vital Sign Answer Date Recorded Worried About Running Out of Food in the Last Ye ar Never true 05/28/2020 Ran Out of Food in the Last Year Never true 05/28/2020 Sex and Gender Information Value Date Recorded Sex Assigned at Not on file Gender Identity Not on file Sexual Orientation Not on file Job Start Date Occupation Industry Not on file Not on file Not on file documented as of this encounter Miscellaneous Notes * Telephone Encounter - Irais Leger LPN - 11/24/2023 3:17 PM EDT Care Gaps Comprehensive Care Outreach Last Office/Telemedicine Visit: 06/29/2023 (in office), Visit date not found (telemedicine) Next Office Visit: 01/04/2024 Hemoglobin AIC Results: Lab Results Component Value Date/Time HEMOGLOBIN A1C - [facility] 7.4 (H) 06/29/2023 04:16 PM HEMOGLOBIN A1C - [facility] 7.4 (H) 03/24/2023 11:03 AM HEMOGLOBIN A1C - [facility] 7.2 (H) 12/02/2022 10:54 AM HEMOGLOBIN A1C - [facility] 7.6 (H) 06/13/2020 11:01 AM HEMOGLOBIN A1C POCT - [facility] 6.7 (H) 11/16/2021 01:27 PM BP Readings from Last 1 Encounters: 08/26/23 111/81 Reviewed Health Maintenance below: Health Maintenance Topic Date Due DISCUSS TOBACCO CESSATION (REFER TO SMARTSET #3293) Never done HIV Screening Never done Zoster Vaccines (1 of 2) Never done Depression Screening 05/28/2021 Pneumococcal Vaccine: Pediatrics (0 to 5 Years) and At-Risk Patients (6 to 64 Years) (2 of 2 - PCV)08/17/2022 Diabetic Eye Exam 11/16/2022 COVID-19 Vaccine (3 - season) 2023 Albumin/Creatinine Ratio 12/03/2023 Diabetic Foot Exam 12/23/2023 HbA1c 12/28/2023 Eye tele eye labs Care Gap Outreach Action Taken: Left message documented in this encounter Plan of Treatment Upcoming Encounters Date Type Department Care Team (Late st Contact Info) Description 01/04/2024 3:40 PM EDT Office Visit Family Practice [facility] [place] [address] [place] [address] Salbador Rendon III, MD [address] [facility] [place] [address] 03/01/2024 11:00 AM EDT Office Visit Podiatry [facility] [address] [place] [address] [address] Brandee Oden, DPM [address] [place] [address] Scheduled Procedures Name Priority Associated Diagnoses Date/Ti me COLONOSCOPY FLEXIBLE PROXIMAL DIAGNOSTIC Recall History of colon polyps Health Maintenance Due Date Last Done Comments DISCUSS TOBACCO CESSATION (REFER TO SMARTSET #0852) 1960 HIV Screening 02/02/1975 Zoster Vaccines (1 of 2) 02/02/2010 Depression Screening 05/28/2021 05/28/2020 Pneumococcal Vaccine: Pediatrics (0 to 5 Years) and At-Risk Patients (6 to 64 Years) (2 of 2 - PCV) 08/17/2022 08/17/2021 Diabetic Eye Exam 11/16/2022 11/16/2021 COVID-19 Vaccine ( - 2022- season) 2023 05/20/2021, 04/22/2021 Albumin/Creatinine Ratio 12/03/2023 023, 11/09/2021, 07/31/2021, Additional history exists Diabetic Foot Exam 12/23/2023 12/22/2022, 0 11/16/2021, 12/08/2020 HbA1c 12/28/2023 06/29/2023, 08/0 10/2022, 12/02/2022, Additional history exists GFR 06/29/2024 06/29/2023, 04/22, 06/13/2020 TSH 06/29/2024 06/29/2023, 04/22, 07/31/2021, Additional history exists COLONOSCOPY-EVERY 5 YRS AGES 18-100 10/18/2027 10/18/2022, 10/18/2022, 06/01/2017, Additional history exists Lipid Panel 06/29/2028 06/29/2023, 04/22, 07/31/2021, Additional history exists DTaP,Tdap,and Td Vaccines (2 - Td or Tdap) 07/05/2028 07/05/2018 Colonoscopy Discontinued 10/18/2022, 09/23, 06/01/2017, Additional history exists Colorectal Cancer Screening Discontinued Influenza Vaccine (FLU shot) Completed 06/29/2023, 05/19/2022, 08/17/2021, Additional history exists Cologuard Discontinued Fecal Occult Blood Test Discontinued GARDASIL-HPV IMMUNIZATION SERIES Aged Out No longer eligible based on patient's age to complete this topic Hepatitis B Aged Out No longer eligi ble based on patient's age to complete this topic MENINGOCOCCAL (MENACTRA/MENVEO) Aged Out No longer eligible based on patient's age to complete this topic Sigmoidoscopy Discontinued documented as of this encounter Medical Devices Not on filedocumented as of this encounter Care Teams Care Team Coordinator Scheduler Relationship Specialty Start Date End Date Salbador Rendon III, MD [address] [place] [address] PCP - General Family Medicine 05/28/20 documented as of this encounter
--- OUTSIDE RECORDS SUMMARY | 2024-03-23 02:17 | External Medical Summary ---
Author Name Unknown Address Unknown Organization [id number]:[facility] [place] [facility] [address] [place] [address] Laboratory Report Ordering Provider Test Date Status MATTEO BETANCUR 03/01/2024 11:15:41 Final Normal: <30 mg/g creatinine< br/>High: 30-300 mg/g creatinine
Very High: >300 mg/g creatinine
Nephrotic: >2200 mg/g creatinine Observation Date Value Abnormality Reference (Units ) Status Albumin, Urine 03/01/2024 11:15:41 <1.20 (mg/dL) Final Creatinine, Urine 03/01/2024 11:15:41 43 (mg/dL) Final Albumin/Creatinine [Mass Ratio] in Urine 03/01/2024 11:15:41 <28 <30 (mg/g Creat) Final Performing Location [facility] [place] [address] [place] [address]
--- OUTSIDE RECORDS SUMMARY | 2024-03-23 02:17 | External Medical Summary ---
Author Name Unknown Address Unknown Organization [id number]:[facility]ORY [facility] [place] - [address] [facility] [address] Laboratory Report Ordering Provider Test Date Status GYPSYYOLY LLOYDFELIPE 03/01/2024 11:14:08 Final Observation Date Value Abnormality Reference (Units ) Status HbA1C 03/01/2024 11:14:08 8.8 Above high normal 4. 0-5.6 (%) Final The use of HbA1c to monitor glycemic status is based on normal hemoglobin and HbA composition. This test should not be used in patients with abnormal hemoglobin that affects the half life of the red blood cell or the in vivo glycation rates. Glucose, estimated average 03/01/2024 11:14:08 206 Above high normal <126 (mg/dL) Brady lo Performing Location LAB[facility]ATORY [facility] [place] - [address] [facility] [address]
--- OUTSIDE RECORDS SUMMARY | 2024-03-23 02:17 | External Medical Summary | Summary of Care ---
Author Name Unknown Organization [facility] Address [address] [place] [address] Phone [phone] Care Team Providers Care Cook 3 Pastry Name Role Phone Justice DOUGHERTY MD, La Becker Primary Care Provider [phone] Reason for Visit * Reason Comments eRx-Medication Refill Encounter Details Date Type Department Care Team ([facility] st Contact Info) Description 12/14/2023 Refill Family Practice [facility] [address] [facility] [place] [address] La Blanca III, MD [address] [place] [address] Allergies Active Allergy Reactions Criticality Noted Date Comments Pollen Other (Please comment) 11/16/2021 Excessive post nasal drip documented as of this encounter (statuses as of 12/15/2023) Medications Medication Sig Dispensed Refills Start Date End Date Status Ibuprofen 200 MG Oral Tablet (MOTRIN) Take 1 Tablet by mouth every 4 hours as needed. 0 Active Vitamin D 25 MCG (1000 UT) Oral Tablet Take by mouth. 0 Active OneTouch Delica Lancets 33G Check up to 4 times daily E11.9 100 Each 6 06/18/2020 Active Panasas Next Monitor w/Device Kit Use as directed. Test one to four times a day. E11.9 1 Kit 0 09/03/2020 Active Panasas Next Test In Vitro Strip (Glucose Blood) Test one to four times a day. E11.9 100 Strip 11 09/03/2020 Active Lancets Contour next lancets. One to four times a day E11.9 100 Each 11 09/03/2020 Active Vitamin B-12 ER 1000 MCG Oral Tablet Extended Release Take by mouth daily. 0 Active Jardiance 25 MG Oral Tablet (Empagliflozin) TAKE 1 TABLET BY MOUTH DAILY 90 Tablet 3 07/15/2023 Active metFORMIN HCl 850 MG Oral Tablet (Glucophage) TAKE 1 TABLET BY MOUTH TWICE DAILY WITH MORNING AND EVENING MEALS 180 Tablet 3 07/15/2023 Active Atorvastatin Calcium 40 MG Oral Tablet (Lipitor) TAKE 1 TABLET BY MOUTH IN THE MORNING 90 Tablet 0 11/16/2023 Active Levothyroxine Sodium 25 MCG Oral Tablet (Levoxyl) TAKE 1 TABLET BY MOUTH DAILY FIRST THING IN THE MORNING AT LEAST 1/2 HOUR PRIOR TO BREAKFAST OR OTHER MEDS 90 Tablet 2 12/15/2023 Active Levothyroxine Sodium 25 MCG Oral Tablet (Levoxyl) TAKE 1 TABLET BY MOUTH DAILY FIRST THING IN THE MORNING AT LEAST 1/2 HOUR PRIOR TO BREAKFAST OR OTHER MEDS 90 Tablet 1 07/15/2023 4 Discontinued documented as of this encounter (statuses as of 12/15/2023) Active Problems Problem Noted Date Diagnosed Date Acquired hypothyroidism 11/16/2021 Dyslipidemia 11/16/2021 Type 2 diabetes mellitus wit h hemoglobin A1c goal of less than 7.0% 09/03/2020 documented as of this encounter (statuses as of 12/15/2023) Immunizations Name Administration Dates Next Due COVID-19 [...] encounter Miscellaneous Notes * Telephone Encounter - Lulú Neumann [facility] - 12/15/2023 9:17 AM EDTSigned Prescriptions: Disp Refills Levothyroxine Sodium 25 MCG Oral Tablet (L*90 Tab*2 Sig: TAKE 1 TABLET BY MOUTH DAILY FIRST THING IN THE MORNING AT LEAST 1/2 HOUR PRIOR TO BREAKFAST OR OTHER MEDSAuthorizing Provider: LA BLANCA III User: LULÚ NEUMANN documented in this encounter Plan of Treatment Upcoming Encounters Date Type Department Care Team (Late st Contact Info) Description 01/10/2024 11:40 AM EDT Office Visit Family Practice [facility] [address] [facility] [address] La Blanca III, MD [address] [facility] [place] [address] 03/01/2024 11:00 AM EDT Office Visit Podiatry [facility] [address] [address] Brandee Oden DPM [address] [place] [address] Scheduled Procedures Name Priority Associated Diagnoses Date/Ti me COLONOSCOPY FLEXIBLE PROXIMAL DIAGNOSTIC Recall History of colon polyps Health Maintenance Due Date Last Done Comments DISCUSS TOBACCO CESSATION (REFER TO SMARTSET #6155) 1960 HIV Screening 02/02/1975 Zoster Vaccines (1 of 2) 02/02/2010 Depression Screening 05/28/2021 05/28/2020 Pneumococcal Vaccine: Pediatrics (0 to 5 Years) and At-Risk Patients (6 to 64 Years) (2 of 2 - PCV) 08/17/2022 08/17/2021 Diabetic Eye Exam 11/16/2022 11/16/2021 COVID-19 Vaccine (3 - 2022- season) 2023 05/20/2021, 04/22/2021 Albumin/Creatinine Ratio 12/03/2023 023, 11/09/2021, 07/31/2021, Additional history exists Diabetic Foot Exam 12/23/2023 12/22/2022, 0 11/16/2021, 12/08/2020 HbA1c 12/28/2023 06/29/2023, 0810/2022, 12/02/2022, Additional history exists GFR 06/29/2024 06/29/2023, 04/22, 06/13/2020 TSH 06/29/2024 06/29/2023, 04/22, 07/31/2021, Additional history exists COLONOSCOPY-EVERY 5 YRS AGES 18-100 10/18/2027 10/18/2022, 10/18/2022, 06/01/2017, Additional history exists DTaP,Tdap,and Td Vaccines (2 - Td or Tdap) 07/05/2028 07/05/2018 Lipid Panel 11/23/2028 11/24/2023, 1103/2023, 05/10/2022, Additional history exists Colonoscopy Discontinued 10/18/2022, 09/23, 06/01/2017, Additional history [...] filedocumented as of this encounter Care Teams Cook 3 Pastry Relationship Specialty Start Date End Date Rice III, La E, MD [address] [place] [address] PCP - General Family Medicine 05/28/20 documented as of this encounter
--- OUTSIDE RECORDS SUMMARY | 2024-03-23 02:17 | External Medical Summary | Summary of Care ---
Author Name Unknown Organization [facility] Address [address] [place] [address] Phone [phone] Care Team Providers Care Rewind Operator Name Role Phone Justice DOUGHERTY MD, Salbador Becker Primary Care Provider [phone] Reason for Visit * Reason Comments Outpatient Testing Encounter Details Date Type Department Care Team (Late st Contact Info) Description 11/24/2023 10:20 AM EDT Laboratory Laboratory, [facility] [address] [place] [address] [facility] [address] [place] [address] Encounter for long-term (current) use of medications Allergies Active Allergy Reactions Criticality Noted Date [...] day. E11.9 1 Kit 0 09/03/2020 Active Contour Next Test In Vitro [...] 3:40 PM EDT Office Visit [facility] [place] [address] [facility] [place] [address] Salbador Rendon III, MD 200 [facility] [place] [address] 03/01/2024 11:00 AM EDT Office Visit Podiatry [facility] [address] [place] [address] Brandee Oden DPM [address] [place] [address] Pending Results Name Type Priority Associated Diagnoses Date /Time LIPID PANEL WITH DIRECT LDL IF TG IS HIGH Lab Routine Encounter for long-term (current) use of medications 11/24/2023 11:02 AM EDT ALT Lab Routine Encounter for long-term (current) use of medications 11/24/2023 11:02 AM EDT AST Lab Routine Encounter for long-term (current) use of medications 11/24/2023 11:02 AM EDT Scheduled Procedures Name Priority Associated Diagnoses Date/Ti me COLONOSCOPY FLEXIBLE PROXIMAL DIAGNOSTIC Recall History of colon polyps Health Maintenance Due Date Last Done Comments DISCUSS TOBACCO CESSATION (REFER TO SMARTSET #1301) 1960 HIV Screening 02/02/1975 Zoster Vaccines (1 of 2) 02/02/2010 Depression Screening 05/28/2021 05/28/2020 Pneumococcal Vaccine: Pediatrics (0 to 5 Years) and At-Risk Patients (6 to 64 Years) (2 of 2 - PCV) 08/17/2022 08/17/2021 Diabetic Eye Exam 11/16/2022 11/16/2021 COVID-19 Vaccine ( season) 2023 05/20/2021, 04/22/2021 Albumin/Creatinine Ratio 12/03/2023 [...] as of this encounter Visit Diagnoses Diagnosis Encounter for long-term (current) use of medications Encounter for long-term (current) use of other medications documented in this encounter Care Teams Rewind Operator Relationship Specialty Start Date End Date Salbador Rendon III, MD 200 [place] [address] PCP - General Family Medicine 05/28/20 documented as of this encounter
--- OUTSIDE RECORDS SUMMARY | 2024-03-23 02:17 | External Medical Summary | Summary of Care ---
Author Name Unknown Organization [facility] Address [address] [place] [address] Phone [phone] Care Team Providers Care Catalogue Maker Name Role Phone Justice DOUGHERTY MD, Salbador Becker Primary Care Provider [phone] Encounter Details Date Type Department Care Team (Late st Contact Info) Description 03/12/2024 Orders Only [facility] Research Department [address] [place] [address] Kim Fleming [facility] [employer] Other*[id number] Allergies Active Allergy Reactions Criticality Noted Date Comments Pollen Other (Please comment) 11/16/2021 Excessive post nasal drip documented as of this encounter (statuses as of 03/12/2024) Medications Medication Sig Dispensed Refills Start Date End Date Status Ibuprofen 200 MG Oral Tablet (MOTRIN) Take 1 Tablet by mouth every 4 hours as needed. Active Vitamin D 25 MCG (1000 UT) Oral Tablet Take by mouth. Active OneTouch Delica Lancets 33G Check up to 4 times daily E11.9 100 Each 6 06/18/2020 Active Invuity Next Monitor w/Device Kit Use as directed. Test one to four times a day. E11.9 1 Kit 09/03/2020 Active Invuity Next Test In Vitro Strip (Glucose Blood) [...] as of this encounter (statuses as of 03/12/2024) Active Problems Problem Noted Date Diagnosed Date Acquired hypothyroidism 11/16/2021 Dyslipidemia 11/16/2021 Type 2 diabetes mellitus wit h hemoglobin A1c goal of less than 7.0% 09/03/2020 documented as of this encounter (statuses as of 03/12/2024) Immunizations Name Administration Dates Next Due COVID-19 [...] AM EDT Office Visit [facility] [address] [facility] [place] [address] Isis Pierson PA-C [address] [facility] [place] [address] 06/05/2024 10:40 AM EDT Office Visit Podiatry [facility] [address] [facility] [place] [address] Brandee Oden DPM [address] [facility] [place] [address] 07/30/2024 12:40 PM EST Office Visit Family Practice [facility] 200 [facility] [place] [address] Teodora Matias MD [address] [facility] [place] [address] Scheduled Orders Name Type Priority Associated Diagnoses Orde r Schedule MYCODE SUBSEQUENT ADULT Lab Routine [employer] Other*[id number] Every 6 Months for 2 Occurrences starting 03/12/2024 until 04/01/2025 Scheduled Procedures Name Priority Associated Diagnoses Date/Ti me COLONOSCOPY FLEXIBLE PROXIMAL DIAGNOSTIC Recall History of colon polyps Health Maintenance Due Date Last Done Comments DISCUSS TOBACCO CESSATION (REFER TO SMARTSET #3455) 1960 HIV Screening 02/02/1975 Cologuard 02/02/2005 Fecal Occult Blood Test 02/02/2005 Sigmoidoscopy 02/02/2005 Zoster Vaccines (1 of 2) 02/02/2010 Depression Screening 05/28/2021 05/28/2020 Pneumococcal Vaccine: Pediatrics (0 to 5 Years) and At-Risk Patients (6 to 64 Years) (2 of 2 - PCV) 08/17/2022 08/17/2021 COVID-19 Vaccine (3 - 2022-24 season) 2023 05/20/2021, 04/22/2021 Diabetic Foot Exam 12/23/2023 12/22/2022, 0 11/16/2021, 12/08/2020 Influenza Vaccine (FLU shot) (#1) 2024 06/29/2023, 05/19/2022, 08/17/2021, Additional history exists GFR 06/29/2024 06/29/2023, 04/22, 06/13/2020 TSH 06/29/2024 06/29/2023, 04/22, 07/31/2021, Additional history exists HbA1c 09/01/2024 03/01/2024, 110 03/2023, 03/24/2023, Additional history exists Diabetic Eye [...] this encounter Visit Diagnoses Diagnosis [employer] Other*[id number] documented in this encounter Care Teams Catalogue Maker Relationship Specialty Start Date End Date Salbador Rendon III, MD [address] [place] [address] PCP - General Family Medicine 05/28/20 documented as of this encounter
--- OUTSIDE RECORDS SUMMARY | 2024-03-23 02:17 | External Medical Summary ---
Author Name Unknown Address Unknown Organization [id number][facility] [address] [place] [address] Laboratory Report Ordering Provider Test Date Status MAYUR HEARN 11/24/2023 11:02:15 Final Observation Date Value Abnormality Reference (Units ) Status AST (Aspartate aminotransferase) 11/24/2023 11:02:15 26 10-50 (U/L) Final Performing Location LAB[facility]ATORY [facility] PAUL [address] - [address] [place] [address]
--- OUTSIDE RECORDS SUMMARY | 2024-03-23 02:17 | External Medical Summary ---
Author Name Unknown Address Unknown Organization [id number]:[facility] [place] [address] [place] [address] Laboratory Report Ordering Provider Test Date Status KING RIVAS 11/24/2023 11:02:15 Final Observation Date Value Abnormality Reference (Units ) Status Triglyceride 11/24/2023 11:02:15 381 Above high normal <=174 (mg/dL) Final Triglyceride Reference Range s (mg/dL):
<150 Acceptable
150-174 Borderline high
175-499 High
>=500 Very high Cholesterol 11/24/2023 11:02:15 154 <200 (mg /dL) Final Total Cholesterol Reference Ranges (mg/dL):
<200 Desirable
200-239 Borderline high
>=240 High HDL 11/24/2023 11:02:15 31 Below low normal >39 (mg/dL) Final HDL Cholesterol Reference Ra nges (mg/dL):
>=60 High (Desirable)
<50 Low (Undesirable) For Females
<40 Low (Undesirable) For Males NON-HDL CHOLESTEROL 11/24/2023 11:02:15 123 <=159 (mg/dL) Final Non-HDL Cholesterol Referenc e Range (mg/dL):
<100 Target level for high risk ASCVD patient
<130 Optimal for general population
130-159 Near optimal for general population
160-189 Borderline High
190-219 High
>=220 Very High Performing Location LABORATORY [facility] - [address] [place] [address]
--- OUTSIDE RECORDS SUMMARY | 2024-03-23 02:17 | External Medical Summary | Summary of Care ---
Author Name Unknown Organization [facility] Address [address] [place] [address] Phone [phone] Care Team Providers Care Air Conditioning Coil Assembler Name Role Phone Justice DOUGHERTY MD, Salbador Maddox Primary Care Provider [phone] Reason for Visit * Reason Comments NEW PATIENT Umbilical hernia , r epair in 1999ish, pt stating it returned, referral from PCP- teodora matias * Evaluate & Treat - Unlimited Visits (Within 10 days (routine)) - Pending Review Specialty Diagnoses / Procedures Referred By Jatinder prasad Referred To Contact General Surgery Diagnoses Umbilical hernia without obstruction and without gangrene Teodora Matias MD [address] [place] [address] Referral ID Status Reason Start Date Expiration Date Visits Requested Visits Authorized [id number] Pending Review Specialty Services Required 01/24/2024 [id number] Encounter Details Date Type Department Care Team (Late st Contact Info) Description 01/26/2024 2:30 PM EDT Office Visit General Surgery, [facility] [address] [id number] Real Galvez MD [address] [address] Umbilical hernia without obstruction and without gangrene* Allergies Active Allergy Reactions Criticality Noted Date Comments Pollen Other (Please comment) 11/16/2021 Excessive post nasal drip documented as of this encounter (statuses as of 01/26/2024) Medications Medication Sig Dispensed Refills Start Date [...] as of this encounter (statuses as of 01/26/2024) Active Problems Problem Noted Date Diagnosed Date Acquired hypothyroidism 11/16/2021 Dyslipidemia 11/16/2021 Type 2 diabetes mellitus wit h hemoglobin A1c goal of less than 7.0% 09/03/2020 documented as of this encounter (statuses as of 01/26/2024) Immunizations Name Administration Dates Next Due COVID-19 mRNA, LNP-s, No Pre serve, 2-Dose Series (Moderna) 05/20/2021,04/22/2021 Pneumococcal Polysaccharide PPV23 (Pneumovax) 08/17/2021 Seasonal Influenza, PF, 6 M & above, IM , (FluLaval or Fluzone) 06/29/2023,05/19/2022,08/17/2021,05/28 TDAP (age 10 and older)(Boostrix) 07/05/2018 documented as of this encounter Social History Tobacco Use Types Packs/Day Years Used Date Smoking Tobacco: Every Day Cigarettes 1 40 Started: 01/25/1984 Smokeless Tobacco: Never Tobacco Cessation:Ready to Q uit: Not Asked; Counseling Given: Not Answered PHQ-2 Answer Date Recorded PHQ-2 Score 0 05/28/2020 Hunger Vital Sign Answer Date Recorded Within the past 12 months, y ou worried that your food would run out before you got the money to buy more. Patient declined Within the past 12 months, t he food you bought just didn't last and you didn't have money to get more. Patient declined 11/2023 Sex and Gender Information Value Date Recorded Sex Assigned at Male 01/24/2024 3:56 PM EDT Gender Identity Male 01/24/2024 3:56 PM EDT Sexual Orientation Straight 01/24/2024 3: 56 PM EDT Job Start Date Occupation Industry Not on file Not on file Not on file documented as of this encounter Last Filed Vital Signs Vital Sign Reading Time Taken Comments Blood Pressure 149/77 01/26/2024 2:30 PM EDT Pulse 97 01/26/2024 2:30 PM EDT Temperature 36.2 C (97.2 F) 01/26/2024 2:30 PM ED T Respiratory Rate - - Oxygen Saturation - - Inhaled Oxygen Concentration - - Weight 82.5 kg (181 lb 14.4 oz) 01/26/2024 2:30 PM EDT Height 168.3 cm (5' 6.25") 01/26/2024 2:30 PM ED T Body Mass Index 29.14 01/26/2024 2:30 PM EDT documented in this encounter Progress Notes * Real Galvez MD - 01/26/2024 2:34 PM EDT [facility] [address] [place] [address] [facility] HPI.: Abilio Georges is a 63 year old male seen in consultation for symptomatic recurrent umbilical hernia repaired without mesh years ago. He has no symptoms present. The lump is reducible. The patient has no symptoms of chronic constipation,chronic cough,difficulty urinating. Past Medical History Past Medical History: Diagnosis Date Deafness in left ear Kidney stones Past Surgical History Past Surgical History: Procedure Laterality Date COLONOSCOPY, DIAGNOSTIC (RECTUM) 10/18/2022 benign adenomatous polyp, repeat 5 yrs / COLONOSCOPY FLEXIBLE PROXIMAL DIAGNOSTIC performed by MD Dominique at ENDOSCOPY [facility] DENTAL SURGERY PROCEDURE NEC Bilateral EXCISE BENIGN LESION, TRUNK, ARM, LEG, 2.1 - 3.0 CM Right 08/26/2023 EXCISION BENIGN LESION EXCEPT SKIN TAG TRUNK ETC 2.1 TO 3.0CM performed by Isabel Yanez MD at OR [facility] REMOVAL OF TONSILS, UNDER AGE 12 REPAIR INGUINAL HERNIA, UNDER AGE 5 Left UMBIL HERNIA REPAIR (REDUCIBLE) AGE 5+YR N/A Medications: Current Outpatient Medications Medication Sig Dispense Refill [...] No current facility-administered medications for this visit. Allergies: Allergies as of 01/26/2024 - Reviewed 01/26/2024 Allergen Reaction Noted Pollen Other (Please comment) 11/16/2021 Family History Family History Problem Relation Name Age of Onset Cancer Mother Diabetes Father Colon cancer Brother Skin cancer Brother Social History Social History Socioeconomic History Marital status: Single [...] Social Determinants of Health Financial Resource Strain: Not on file Food Insecurity: Patient Declined (01/24/2024) Hunger Vital Sign Worried About Running Out of Food in the Last Year: Patient declined Ran Out of Food in the Last Year: Patient declined Transportation Needs: Not on file Physical Activity: Not on file Stress: Not on file Social Connections: Not on file Intimate Partner Violence: Not on file Housing Stability: Not on file ROS: GEN: no weight loss, fever, fatigue HEENT: no changes in vision or hearing, no sinus problems, no sore throat, no hoarseness RESPIRATORY: no cough, wheezing, SOB or change in breathing CARDIOVASCULAR: no exertional chest pain, dyspnea, palpitations GI: no melena or hemetemesis, no change in bowel habits, no nausea or vomiting : no dysuria, hematuria, frequency MUSCULOSKELETAL: no change in joint pains, no new arthritis PSYCHIATRIC: no significant anxiety or depression, unchanged sleep pattern HEME: no bleeding tendency, no clotting tendency NEURO: no significant headache, no seizures , no tremors SKIN: no new rashes, no itching Physical Exam: Blood pressure 149/77, pulse 97, temperature 36.2 C (97.2 F), height 1.683 m (5' 6.25"), .5 kg (181 lb 14.4 oz). Constitutional: alert,healthy,well nourished Head: normocephalic,atraumatic Eyes: conjunctiva non-injected,sclera white,EOMI Ears: pinna normal shape and color Neck: supple Lungs: clear to auscultation,breath sounds are equal and symmetric,no crepitus Heart: regular rate & rhythm,no murmur, gallops or rubs Abdomen: soft ,positive bowel sounds,non-tender; positive for an umbilical hernia, reducible Extremities: no joint deformities, effusion, or inflammation,no edema,no skin discoloration Neuro: alert,gait normal,motor normal Skin: no obvious rashes or significant lesions,warm and dry with good turgor IMP: Abilio Georges is a 63 year old male with an recurrent umbilical hernia which is currently not symptomatic. For this reason, I have recommended that the patient consider a hernia repair. This could be performed in open or laparascopic approach. Laparascopic surgery is useful for large initial umbilical hernias otherwise I usually recommend open repairs with or without mesh depending on the strength and condition of the fascia. I discussed the surgery in detail and the complications related to the surgery and the anesthesia. The risks include, but are not limited to: recurrence of the hernia, post-op and chronic pain, numbness, bleeding, wound problems and mesh infection requiring mesh removal. Patient understands these risks. Expected same day nature of surgery and postoperative recovery period reviewed. Activity restrictions postoperatively to include no heavy lifting or high impact activity for three to six weeks reviewed. All questions were answered to the patient's satisfaction and consent was signed. Conservative treatment with avoidance of heavy lifting or straining until after surgical repair was discussed. We also reviewed the signs and symptoms of incarceration/strangulationand the patient was instructed to go directly to the emergency room should this occur. PLAN: Will let patient work on lifestyle changes including smoking cessation and weight loss. Will see back in 1 year to reassess, will return sooner if symptoms occur. Real Galvez MD 01/26/2024 2:34 PM documented in this encounter Nursing Notes * Katy Jennings LPN - 01/26/2024 2:31 PM EDT Patient identified by name and date of . Chief Complaint Patient presents with NEW PATIENT Umbilical hernia , repair in 1999ish, pt stating it returned, referral from PCP- teodora matias Pt states this is not really bothersome, but has returned, and her pcp was concerned about the sizeand placement- per pt . documented in this encounter Plan of Treatment Upcoming Encounters Date Type Department Care Team (Late st Contact Info) Description 02/02/2024 2:00 PM EDT Office Visit Orthopaedics [facility] [address] [address] Sen Lord MD [address] [place] [phone] 03/01/2024 11:00 AM EDT Office Visit Podiatry [facility] [address] [address] Brandee Oden DPM [address] [place] [phone] 07/30/2024 12:40 PM EST Office Visit Family Practice [facility] [address] [facility] [place] [address] Teodora Matias MD [address] [facility] [place] [address] Scheduled Procedures Name Priority Associated Diagnoses Date/Ti me COLONOSCOPY FLEXIBLE PROXIMAL DIAGNOSTIC Recall History of colon polyps Scheduled Referrals Name Type Priority Associated Diagnoses Orde r Schedule SURGERY REFERRAL OP Referral Within 10 da ys (routine) Umbilical hernia without obstruction and without gangrene Ordered: 01/24/2024 Health Maintenance Due Date Last Done Comments DISCUSS TOBACCO CESSATION (REFER TO SMARTSET #[id number]) 1960 HIV Screening 02/02/1975 Cologuard 02/02/2005 Fecal Occult Blood Test 02/02/2005 Sigmoidoscopy 02/02/2005 Lung Cancer Screening 02/02/2010 Zoster Vaccines (1 of 2) 02/02/2010 Depression [...] 06/29/2024 06/29/2023, 04/22, 07/31/2021, Additional history exists Colonoscopy 10/18/2027 10/18/2022, 09/23, 06/01/2017, Additional history exists Colorectal Cancer Screening 10/18/2027 DTaP,Tdap,and Td Vaccines (2 - Td or Tdap) 07/05/2028 07/05/2018 Lipid Panel 11/23/2028 11/24/2023, 11/0 03/2023, 05/10/2022, Additional history exists RETIRED - COLONOSCOPY-EVERY 5 YRS AGES 18-100 Discontinued 10/18/2022, 10/18/2022, 06/01/2017, Additional history exists Influenza Vaccine (FLU shot) Completed 06/29/2023, 05/19/2022, 08/17/2021, Additional history exists GARDASIL-HPV IMMUNIZATION SERIES Aged Out No longer [...] as of this encounter Visit Diagnoses Diagnosis Umbilical hernia without obstruction and without gangrene- Primary documented in this encounter Care Teams Air Conditioning Coil Assembler Relationship Specialty Start Date End Date Salbador Rendon III, MD [address] [facility] [place] [address] PCP - General Family Medicine 05/28/20 documented as of this encounter
--- OUTSIDE RECORDS SUMMARY | 2024-03-23 02:17 | External Medical Summary | Summary of Care ---
Author Name Unknown Organization [facility] Address [address] [place] [address] Phone [phone] Care Team Providers Care Workforce Analyst Name Role Phone Justice DOUGHERTY MD, Salbador Maddox Primary Care Provider [phone] Reason for Visit * Reason Comments Diabetic Foot Care Encounter Details Date Type Department Care Team (Late st Contact Info) Description 11/24/2023 10:40 AM EDT Office Visit [facility] [address] [address] Brandee Oden DPM [address] [facility] [place] [address] Thickened nails* Allergies Active Allergy Reactions Criticality Noted Date [...] Progress Notes * Brandee Oden DPM - 11/24/2023 10:50 AM EDT No charge. Pt declined trim today. documented in this encounter Nursing Notes * Rosie Estevez LPN - 11/24/2023 10:42 AM EDT Pt presents for routine diabetic foot care, no pain in feet, does not test BSG. documented in this encounter Plan of Treatment Upcoming Encounters Date Type Department Care Team (Late st Contact Info) Description 01/04/2024 3:40 PM EDT Office Visit Family Practice [facility] [address] [facility] [place] [address] Salbador Rendon III, MD [address] [facility] [place] [address] 03/01/2024 11:00 AM EDT Office Visit Podiatry [facility] [address] [place] [address] Brandee Oden DPM [address] [place] [address] Scheduled Procedures Name Priority Associated Diagnoses Date/Ti me COLONOSCOPY FLEXIBLE PROXIMAL DIAGNOSTIC Recall History of colon polyps Health Maintenance Due Date Last Done Comments DISCUSS TOBACCO CESSATION (REFER TO SMARTSET #[id number]) 1960 HIV Screening 02/02/1975 Zoster Vaccines (1 [...] nails- Primary Other specified disease of nail documented in this encounter Care Teams Workforce Analyst Relationship Specialty Start Date End Date Salbador Rendon III, MD [address] [place] [address] PCP - General Family Medicine 10/7/20 documented as of this encounter
--- OUTSIDE RECORDS SUMMARY | 2024-03-23 02:17 | External Medical Summary | Summary of Care ---
Author Name Unknown Organization [facility] Address [address] [place] [address] Phone [phone] Care Team Providers Care Cardiology Tech Name Role Phone Justice DOUGHERTY MD, Salbador Maddox Primary Care Provider [phone] Reason for Referral * Evaluate & Treat - Unlimited Visits (Within 10 days (routine)) - Pending Review Specialty Diagnoses / Procedures Referred By Contac t Referred To Contact General Surgery Diagnoses Umbilical hernia without obstruction and without gangrene Teodora Matias MD [address] [place] [address] Referral ID Status Reason Start Date Expiration Date Visits Requested Visits Authorized [id number] Pending Review Specialty Services Required 01/24/[phone] Question Answer Referral Priority Within 10 days (routine) Where should this appointment be scheduled? [facility] What condition is the patient being seen for? General Surgery Conditions What condition is the patient being seen for? Hernia (excluding Hiatal) * Evaluate & Treat - Unlimited Visits (Within 10 days (routine)) - Pending Review Specialty Diagnoses / Procedures Referred By Contac t Referred To Contact Orthopaedic Surgery / Orthopedics Diagnoses Adhesive capsulitis of left shoulder Acute pain of left shoulder Teodora Matias MD [address] [place] [address] Referral ID Status Reason Start Date Expiration Date Visits Requested Visits Authorized [id number] Pending Review Specialty Services Required 01/24/[phone] Question Answer Referral Priority Within 10 days (routine) Where should this appointment be scheduled? [facility] What body part is the patient being seen for? Shoulder What condition is the patient being seen for? Arthritis including related infection * (Within 10 days (routine)) - Pending Review Specialty Diagnoses / Procedures Referred By Contac t Referred To Contact Radiology Diagnoses Tobacco use Procedures LUNG CANCER SCREENING PROGRAM REFERRAL Teodora Matias MD [address] [place] [address] Referral ID Status Reason Start Date Expiration Date V isits Requested Visits Authorized [id number] Pending Review 01/24/2024 999 999 * (Within 10 days (routine)) - Pending Review Specialty Diagnoses / Procedures Referred By Contkeith t Referred To Contact Radiology Diagnoses Tobacco use Procedures LUNG CANCER SCREENING PROGRAM REFERRAL Teodora Matias MD [address] [place] [address] Referral ID Status Reason Start Date Expiration Date V isits Requested Visits Authorized [id number] Pending Review 01/24/[phone] Reason for Visit * Reason Comments Re-Check Encounter Details Date Type Department Care Team (Late st Contact Info) Description 01/24/2024 4:00 PM EDT Office Visit Family Practice [address] [place] [address] [place] [address] Teodora Matias MD [address] [place] [address] Type 2 diabetes mellitus with hemoglobin A1c goal of less than 7.0% ([facility])*; Dyslipidemia; Acquired hypothyroidism; Adhesive capsulitis of left shoulder; Neck pain; Numbness of fingers; Tobacco use; Acute pain of left shoulder; Umbilical hernia without obstruction and without gangrene; Infected cyst of skin Allergies Active Allergy Reactions Criticality Noted Date Comments Pollen Other (Please comment) 11/16/2021 Excessive post nasal drip documented as of this encounter (statuses as of 01/24/2024) Medications Medication Sig Dispensed Refills Start Date End Date Status Ibuprofen 200 MG Oral Tablet (MOTRIN) Take 1 Tablet by mouth every 4 hours as needed. Active Vitamin D 25 MCG (1000 UT) Oral Tablet Take by mouth. Active OneTouch Delica Lancets 33G Check up to 4 times daily E11.9 100 Each 6 06/18/2020 Active Osisis [employer] Search Next Monitor w/Device Kit Use as directed. [...] Active Varenicline Tartrate 0.5 MG Oral Tablet (Chantix)Indication s:Tobacco use For days 1 through 3, take 0.5 mg once daily. For days 4 through 7, take 0.5 mg twice daily. For days 8 onward, take 1 mg twice daily. 90 Tablet 1 01/24/2024 Active documented as of this encounter (statuses as of 01/24/2024) Active Problems Problem Noted Date Diagnosed Date Acquired hypothyroidism 11/16/2021 Dyslipidemia 11/16/2021 Type 2 diabetes mellitus wit h hemoglobin A1c goal of less than 7.0% 09/03/2020 documented as of this encounter (statuses as of 01/24/2024) Immunizations Name Administration Dates Next Due COVID-19 [...] Sign Reading Time Taken Comments Blood Pressure 112/75 01/24/2024 4:31 PM EDT Pulse 102 01/24/2024 4:31 PM EDT Temperature 36.9 C (98.5 F) 01/24/2024 4:31 PM ED T Respiratory Rate 16 01/24/2024 4:31 PM EDT Oxygen Saturation - - Inhaled Oxygen Concentration - - Weight 81.2 kg (179 lb) 01/24/2024 4:31 PM EDT Height - - Body Mass Index 28.89 08/18/2023 11:12 AM EST documented in this encounter Patient Instructions * Patient Instructions* Teodora Matias MD - 01/24/2024 5:04 PM EDT Abilio Georges [id number] Benefits of Quitting Smoking Why should I quit smoking? Smoking is bad for you and bad for others around you. Smoking causes cancer, heart attacks, hardening of the arteries, bronchitis, emphysema, cough, shortness of breath, wrinkles, and premature aging. It stains teeth and fingers, irritates the eyes, furs the tongue, and causes bad breath. People are living longer today than their parents did, so it makes sense to work on staying healthy and independent. One of the best ways to do this is to quit smoking. Benefits of quitting smoking It takes time to reverse many years' worth of smoking damage to your body, but some benefits of quitting smoking begin immediately. For example, you're financially better off on day one. Your health starts to improve right away, too, because you remove a former constant source of irritation from your lungs. People may comment that you no longer cough. Your blood circulation is likely to improve, so your hands and feet may feel warmer. Your teeth, breath, and fingers are no longer a turn-off. Benefits that you're less aware of also begin to occur. These include better resistance to colds and respiratory infections, less likelihood of major heart and circulation problems, less risk of high blood pressure or stroke, and less risk of developing cancer. The following arguments are often presented by smokers as justifications for their continuing to smoke: "I have to sometime, so I might as well enjoy life until then." True, but as a smoker you're much more likely to of a heart attack or cancer - neither of whichare very pleasant ways to go. "I'm only hurting myself." True, if you don't count the heartache and grief you may cause your loved ones by your early or permanent disability, or the damage of your smoke to others. "Lots of people who smoke live to ripe old ages in perfect health." True, but this is rare. Nearly all smokers have significant health problems. "Smoking is one of my pleasures. I don't want to quit." Smoking is associated with pleasure because the nicotine in tobacco is an addictive drug. Your bodywill continue to crave a regular supply until you can overcome the habit. Smoking is always a disadvantage to your health and that of your loved ones. "It's my choice and I choose to smoke." True. It is your choice. In a survey of older former smokers, more than 90% quit on their own because they decided to do so. The main reasons they gave for quitting were wanting to stay healthy, following health care provider's advice, regaining control of their lives, and making a loved one happy . [place] Department of Health Quit Line [employer] Free Quitline 2-465 QUIT NOW ( ) Your insurance company may also have more information and helpful programs to help you quit. Some may even help cover some of the costs. For example, [employer] members can call to find out about their smoking cessation program and medication coverage. Developed by Lupis Rose MD, for [employer]. Published by [employer]. Last modified: 2005-12-31 Last reviewed: 2005-10-20 This content is reviewed periodically and is subject to change as new health information becomes available. The information is intended to inform and educate and is not a replacement for medical evaluation, advice, diagnosis or treatment by a healthcare professional. Adult Health Advisor 2005.4 Index Adult Health Advisor 2005.4 Credits Copyright 2006 [employer] and/or one of its subsidiaries. All Rights Reserved. documented in this encounter Progress Notes * Teodora Matias MD - 01/24/2024 4:38 PM EDT Subjective Chief Complaint Patient presents with Re-Check HPI: Abilio Georges is a 63 year old male. Patient is accompanied by his father. The following issues were addressed today: Patient with T2DM, hypothyroidism, dyslipidemia presents for routine follow-up. Has a few new concerns. Having pain in his left shoulder and pain and numbness down into his forearm and all fingers. States he is losing hand bunch maker strength in his left hand. Even having difficulty using nail clippers. Pain mostly located in anterior shoulder but some in the left side of his neck. Does not recall any injury ortrauma. Pain was there when he woke up one morning several months ago. Having very restricted rangeof motion of the left shoulder; cannot reach above his head without assistance from other arm or reach behind his back. Has not been taking any pain medications. Due for updated Hgb A1c. He is on Metformin and Jardiance. Had diabetic eye exam 02/21/23. Having another exam this February, will get records faxed. Follows with podiatry regularly. Had cyst removed from his right axillae last year. Has had some discomfort again in adjacent area. Notes years ago he had an umbilical hernia repaired. He reports that bulge has come back. Not painful. Smokes 1PPD. Has smoked most of his life. Has never had LDCT. Quit before for 2 years cold turkey. Has tried nicotine patches in the past without success. Review of Systems: See HPI Objective BP 112/75 | Pulse 102 | Temp 36.9 C (98.5 F) | Resp 16 | Wt 81.2 kg (179 lb) | BMI 28.89 kg/m| BSA 1.94 m Wt Readings from Last 3 Encounters: 01/24/24 81.2 kg (179 lb) 08/18/23 80.7 kg (178 lb) 06/29/23 78.9 kg (174 lb) BP Readings from Last 3 Encounters: 01/24/24 112/75 08/26/23 111/81 07/15/23 116/72 General: Well-appearing, no acute distress Cardiovascular: Regular rate and rhythm, no murmur Respiratory: Good respiratory effort, breath sounds equal and clear to auscultation bilaterally Extremities: No edema Skin: 0.5cm x 0.5cm area of fluctuance, erythema in right axilla Neurological: Alert and oriented, no focal deficits noted Psychiatric: Appropriate mood and affect Hemoglobin AIC Results: Lab Results Component Value Date/Time HEMOGLOBIN A1C - [facility] 7.4 (H) 06/29/2023 04:16 PM HEMOGLOBIN A1C - [facility] 7.4 (H) 03/24/2023 11:03 AM HEMOGLOBIN A1C - [facility] 7.2 (H) 12/02/2022 10:54 AM HEMOGLOBIN A1C - [facility] 7.6 (H) 06/13/2020 11:01 AM HEMOGLOBIN A1C POCT - [facility] 6.7 (H) 11/16/2021 01:27 PM Lipid Panel Results: Results for orders placed or performed in visit on 11/24/23 LIPID PANEL WITH DIRECT LDL IF TG IS HIGH Result Value Ref Range Triglycerides 381 (H) <=174 mg/dL Cholesterol 154 <200 mg/dL HDL Cholesterol 31 (L) >39 mg/dL Non-HDL Cholesterol 123 <=159 mg/dL TSH Results: Lab Results Component Value Date/Time TSH - [facility] 4.22 (H) 06/29/2023 04:16 PM TSH - [facility] 4.09 05/10/2022 09:13 AM TSH - [facility] 1.92 07/31/2021 12:13 PM TSH - [facility] 3.03 06/13/2020 11:01 AM Assessment & Plan 1. Type 2 diabetes mellitus with hemoglobin A1c goal of less than 7.0% (HCC) Continue current medications. Update labs. - HEMOGLOBIN A1C; Future - ALBUMIN / CREATININE RATIO, URINE; Future 2. Dyslipidemia Stable. Continue current medication(s). Recheck TG in 6 months. 3. Acquired hypothyroidism Well-controlled. Continue current medication(s). 4. Adhesive capsulitis of left shoulder - XR SHOULDER, 2 OR MORE VIEWS - ORTHOPAEDICS REFERRAL OP 5. Neck pain 6. Numbness of fingers - XR C SPINE 4-5 VIEWS 7. Tobacco use - LUNG CANCER SCREENING PROGRAM REFERRAL; Future The following information was reviewed/discussed with the patient: Benefits & harms of screening Potential indications for follow-up testing, if/when necessary Risk of over-diagnosis, false positive findings, and radiation exposure Importance of cigarette smoking abstinence, if applicable Annual adherence to lung cancer screening Impact of comorbidities and ability or willingness to undergo diagnostic testing and/or treatment if something concerning is identified during screening. We discussed the importance of smoking cessation. Patient would like to try Chantix. Reviewed potential side effects. Rx sent to pharmacy. - Varenicline Tartrate 0.5 MG Oral Tablet (Chantix); For days 1 through 3, take 0.5 mg once daily. For days 4 through 7, take 0.5 mg twice daily. For days 8 onward, take 1 mg twice daily. Dispense: 90 Tablet; Refill: 1 8. Acute pain of left shoulder - ORTHOPAEDICS REFERRAL OP 9. Umbilical hernia without obstruction and without gangrene - SURGERY REFERRAL OP 10. Infected cyst of skin Area was injected with 1.5cc 1% lidocaine with epi. Cyst incised using 11 blade and drained. Purulent fluid expressed. Instructed to use warm compresses daily, keep area clean and dry. - DRAIN SKIN ABSCESS, SIMPLE/SINGLE Return in about 6 months (around 07/25/2024) for routine follow-up. This note was electronically signed by Teodora Matias MD .I spent a total of 40-54 minutes (exact time 45 mins) on the date of service in preparation, delivery, and documentation of the care provided to Abilio Georges excluding any time spent in the performanceof separately billed services. documented in this encounter Plan of Treatment Upcoming Encounters Date Type Department Care Team (Late st Contact Info) Description 01/26/2024 2:30 PM EDT Office Visit General Surgery, [facility] [address] [place] [address] Real Galvez MD [address] [place] [address] 02/02/2024 2:00 PM EDT Office Visit Orthopaedics [facility] [address] [place] [address] Sen Lord MD [address] [place] [address] 03/01/2024 11:00 AM EDT Office Visit Podiatry [facility] [address] [place] [address] Brandee Oden DPM [address] [place] [address] 07/30/2024 12:40 PM EST Office Visit Family Practice [facility] [address] [facility] [address] [place] [address] Teodora Matias MD [address] [facility] [place] [address] Scheduled Orders Name Type Priority Associated Diagnoses Orde r Schedule HEMOGLOBIN A1C Lab Routine Type 2 diabetes mellitus with hemoglobin A1c goal of less than 7.0% (HCC) Expected: 01/24/2024 (Approximate), Expires: 01/23/2025 ALBUMIN / CREATININE RATIO, URINE Lab Routine Type 2 diabetes mellitus with hemoglobin A1c goal of less than 7.0% (HCC) Expected: 01/24/2024 (Approximate), Expires: 01/23/2025 LUNG CANCER SCREENING PROGRAM REFERRAL Medical Imaging Routine Tobacco use Expected: 01/24/2024, Expires: 01/23/2026 LUNG CANCER SCREENING PROGRAM REFERRAL Medical Imaging Routine Tobacco use Expected: 01/24/2024, Expires: 01/23/2026 XR C SPINE 4-5 VIEWS Medical Imaging Routine Numbness of fingers Ordered: 01/24/2024 XR SHOULDER, 2 OR MORE VIEWS Medical Imaging Routine Adhesive capsulitis of left shoulder Ordered: 01/24/2024 DRAIN SKIN ABSCESS, SIMPLE/SINGLE Procedures Routine Infected cyst of skin Ordered: 01/24/2024 Scheduled Procedures Name Priority Associated Diagnoses Date/Ti me COLONOSCOPY FLEXIBLE PROXIMAL DIAGNOSTIC Recall History of colon polyps Scheduled Referrals Name Type Priority Associated Diagnoses Orde r Schedule ORTHOPAEDICS REFERRAL OP Referral Within 10 days (routine) Adhesive capsulitis of left shoulder Acute pain of left shoulder Ordered: 01/24/2024 SURGERY REFERRAL OP Referral Within 10 da ys (routine) Umbilical hernia without obstruction and without gangrene Ordered: 01/24/2024 Health Maintenance Due Date Last Done Comments DISCUSS TOBACCO CESSATION (REFER TO SMARTSET #[id number]) 1960 HIV Screening 02/02/1975 Cologuard 02/02/2005 Fecal [...] as of this encounter Visit Diagnoses Diagnosis Type 2 diabetes mellitus with hemoglobin A1c goal of less than 7.0% (HCC)- Primary Dyslipidemia Other and unspecified hyperlipidemia Acquired hypothyroidism Unspecified hypothyroidism Adhesive capsulitis of left shoulder Adhesive capsulitis of shoulder Neck pain Cervicalgia Numbness of fingers Disturbance of skin sensation Tobacco use Tobacco use disorder Acute pain of left shoulder Umbilical hernia without obstruction and without gangrene Infected cyst of skin Sebaceous cyst documented in this encounter Care Teams Cardiology Tech Relationship Specialty Start Date End Date Salbador Rendon III, MD [address] [facility] [place] [address] PCP - General Family Medicine 05/28/20 documented as of this encounter
--- OUTSIDE RECORDS SUMMARY | 2024-03-23 02:17 | External Medical Summary | Summary of Care ---
Author Name Unknown Organization [facility] Address [address] [place] [address] Phone [phone] Care Team Providers Care Vault Person Name Role Phone Justice DOUGHERTY MD, La Becker Primary Care Provider [phone] Reason for Visit * Reason Comments eRx-Medication Refill Encounter Details Date Type Department Care Team (Late st Contact Info) Description 01/22/2024 Refill Family Practice [facility] [address] [facility] [address] La Blanca III, MD [address] [place] [address] Allergies Active Allergy Reactions Criticality Noted Date [...] daily E11.9 100 Each 6 06/18/2020 Active Grouper Next Monitor w/Device Kit Use as directed. Test one to four times a day. E11.9 1 Kit 09/03/2020 Active Grouper Next Test In Vitro Strip (Glucose Blood) [...] THE MORNING 90 Tablet 1 01/24/2024 Active Atorvastatin Calcium 40 MG Oral Tablet (Lipitor) TAKE 1 TABLET BY MOUTH IN THE MORNING 90 Tablet 11/16/2023 4 Discontinued documented as of this encounter [...] encounter Miscellaneous Notes * Telephone Encounter - Keiko Salvador [facility] - 01/24/2024 12:55 PM EDT Signed Prescriptions: Disp Refills Atorvastatin Calcium 40 MG Oral Tablet (Li*90 Tab*1 Sig: TAKE 1TABLET BY MOUTH IN THE MORNINGAuthorizing Provider: LA BLANCA III User: KEIKO SALVADOR documented in this encounter Plan of Treatment Upcoming Encounters Date Type Department Care Team (Late st Contact Info) Description 01/24/2024 4:00 PM EDT Office Visit Family Practice [facility] [address] [facility] [place] [address] Teodora Matias MD [address] [facility] [place] [address] 03/01/2024 11:00 AM EDT Office Visit Podiatry [facility] [address] [place] [address] Brandee Oden DPM [address] [place] [address] Scheduled Procedures Name Priority Associated Diagnoses Date/Ti me COLONOSCOPY FLEXIBLE PROXIMAL DIAGNOSTIC Recall History of colon polyps Health Maintenance Due Date Last Done Comments DISCUSS TOBACCO CESSATION (REFER TO SMARTSET #[id number]) 1960 HIV Screening 02/02/1975 Cologuard 02/02/2005 Fecal [...] filedocumented as of this encounter Care Teams Vault Person Relationship Specialty Start Date End Date La Blanca III, MD [address] [place] [address] PCP - General Family Medicine 05/28/20 documented as of this encounter
--- OUTSIDE RECORDS SUMMARY | 2024-03-23 02:17 | External Medical Summary ---
Author Name Unknown Address Unknown Organization K01:[facility] - [address] [place] [address] Laboratory Report Ordering Provider Test Date Status KING RIVAS 11/24/2023 11:02:15 Final Observation Date Value Abnormality Reference (Units ) Status LDL, (direct) 11/24/2023 11:02:15 72 <=129 (mg/dL) Final LDL Cholesterol Reference Ra nges (mg/dL):
<70 Target level for high risk ASCVD patient
<100 Optimal for general population
100-129 Near optimal for general population
130-159 Borderline high
160-189 High
>=190 Very high Performing Location [facility] - [address] [place] [address]
--- OUTSIDE RECORDS SUMMARY | 2024-03-23 02:17 | External Medical Summary ---
Author Name Unknown Address Unknown Organization [id number]:[facility] [place] [address] [place] [address] Laboratory Report Ordering Provider Test Date Status BRODERICK CONWAY 03/01/2024 11:14:08 Final Observation Date Value Abnormality Reference (Units ) Status MYCODE SPECIMEN-SST 03/01/2024 11:14:08 Freezing of extracted DNA, whole blood and/or serum. Final Performing Location LABORAT[facility] C - [address] [place] [address]
--- OUTSIDE RECORDS SUMMARY | 2024-03-23 02:17 | External Medical Summary ---
Author Name Unknown Address Unknown Organization [id number][facility] [address] [place] [address] Laboratory Report Ordering Provider Test Date Status MAYUR HEARN 11/24/2023 11:02:15 Final Observation Date Value Abnormality Reference (Units ) Status ALT (Alanine aminotransferase) 11/24/2023 11:02:15 45 10-50 (U/L) Final Performing Location [facility] [place] [address] [place] [address]
--- OUTSIDE RECORDS SUMMARY | 2024-03-23 02:17 | External Medical Summary | Summary of Care ---
Author Name Unknown Organization [facility] [address] [facility] [address] Phone [phone] Care Team Providers Care Regional Tanker Truck Driver Name Role Phone Justice DOUGHERTY MD, Salbador Becker Primary Care Provider [phone] Encounter Details Date Type Department Care Team (Late st Contact Info) Description 02/24/2024 Orders Only Family Practice [facility] [address] [facility] [address] Salbador Rendon III, MD [facility] [address] Allergies Active Allergy Reactions Criticality Noted Date Comments Pollen Other (Please comment) 11/16/2021 Excessive post nasal drip documented as of this encounter (statuses as of 02/24/2024) Medications Medication Sig Dispensed Refills Start Date End Date Status Ibuprofen 200 MG Oral Tablet (MOTRIN) Take 1 Tablet by mouth every 4 hours as needed. Active Vitamin D 25 MCG (1000 UT) Oral Tablet Take by mouth. Active OneTouch Delica Lancets 33G Check up to 4 times daily E11.9 100 Each 6 06/18/2020 Active [facility] Next Monitor w/Device Kit Use as directed. Test one to four times a day. E11.9 1 Kit 09/03/2020 Active [facility] Next Test In Vitro Strip (Glucose Blood) [...] as of this encounter (statuses as of 02/24/2024) Active Problems Problem Noted Date Diagnosed Date Acquired hypothyroidism 11/16/2021 Dyslipidemia 11/16/2021 Type 2 diabetes mellitus wit h hemoglobin A1c goal of less than 7.0% 09/03/2020 documented as of this encounter (statuses as of 02/24/2024) Immunizations Name Administration Dates Next Due COVID-19 [...] 01/24/2024 Does the household have a re lar source of income? (Household - for ages [...] 03/01/2024 11:00 AM EDT Office Visit Podiatry [facility] [address] [place] [address] Brandee Oden DPM [address] [place] [address] 03/22/2024 8:00 AM EDT Office Visit [facility], [facility] [address] [place] [address] Isis Pierson PA-C [address] [place] [address] 07/30/2024 12:40 PM EST Office Visit Family Practice [facility] [address] [facility] [place] [address] Teodora Matias MD [address] [place] [address] Scheduled Procedures Name Priority Associated Diagnoses Date/Ti me COLONOSCOPY FLEXIBLE PROXIMAL DIAGNOSTIC Recall History of colon polyps Health Maintenance Due Date Last Done Comments DISCUSS TOBACCO CESSATION (REFER TO SMARTSET #3035) 1960 HIV Screening 02/02/1975 Cologuard 02/02/2005 Fecal [...] 07/31/2021, Additional history exists Diabetic Eye Exam 02/23/2025 02/22/2024, 11/16/2021 Colonoscopy 10/18/2027 10/18/2022, 09/23, 06/01/2017, [...] Procedure Name Priority Date/Time Associated Diagnosis Comments DIABETIC EYE EXAM Routine 02/22/2024 documented in this encounter Results * DIABETIC EYE EXAM (02/22/2024) 02/22/2024 History Per Patient OTHER OUTSIDE LAB (SEE SCANNED REPORT) documented in this encounter Care Teams Regional Tanker Truck Driver Relationship Specialty Start Date End Date Salbador Rendon III, MD [address] [place] [address] PCP - General Family Medicine 05/28/20 documented as of this encounter
--- OUTSIDE RECORDS SUMMARY | 2024-03-23 02:17 | External Medical Summary ---
Author Name Unknown Address Unknown Organization [id number]:[facility] [place] [address] [place] [address] Laboratory Report Ordering Provider Test Date Status BRODERICK CONWAY 03/01/2024 11:14:08 Final Observation Date Value Abnormality Reference (Units ) Status MYCODE SPECIMEN-SST 03/01/2024 11:14:08 Freezing of extracted DNA, whole blood and/or serum. Final Performing Location LABORATORY C - [address] [place] [address]
--- OUTSIDE RECORDS SUMMARY | 2024-03-23 02:18 | External Medical Summary | Summary of Care ---
Author Name Unknown Organization [facility] Address [address] [place] [address] Phone [phone] Care Team Providers Care Oil Operator Name Role Phone Justice DOUGHERTY MD, La Becker Primary Care Provider [phone] Reason for Visit * Reason Comments eRx-Medication Refill Encounter Details Date Type Department Care Team ([facility] st Contact Info) Description 11/15/2023 Refill Family Practice [facility] 200 [facility] [place] [address] La Blanca III, MD 200 [place] [address] Encounter for long-term (current) use of medications* Allergies Active Allergy Reactions Criticality Noted Date Comments Pollen Other (Please comment) 11/16/2021 Excessive post nasal drip documented as of this encounter (statuses as of 11/18/2023) Medications Medication Sig Dispensed Refills Start Date [...] THE MORNING 90 Tablet 0 11/16/2023 Active Atorvastatin Calcium 40 MG Oral Tablet (Lipitor) Take 1 Tablet by mouth in the morning. 90 Tablet 1 06/30/2023 4 Discontinued documented as of this encounter (statuses as of 11/18/2023) Active Problems Problem Noted Date Diagnosed Date Acquired hypothyroidism 11/16/2021 Dyslipidemia 11/16/2021 Type 2 diabetes mellitus wit h hemoglobin A1c goal of less than 7.0% 09/03/2020 documented as of this encounter (statuses as of 11/18/2023) Immunizations Name Administration Dates Next Due COVID-19 [...] encounter Miscellaneous Notes * Telephone Encounter - Martin Barriga - 11/18/2023 7:26 AM EDT Received message from [facility] regarding patient needing labs. Patient was notified. Successfully contacted patient and provided [facility] message. * Telephone Encounter - Nadiya Gomez [facility] - 11/16/2023 2:20 PM EDT Signed Prescriptions: Disp Refills Atorvastatin Calcium 40 MG Oral Tablet (Li*90 Tab*0 Sig: TAKE 1 TABLET BY MOUTH IN THE MORNING Authorizing Provider: LA BLANCA III Ordering User: NADIYA GOMEZ * Telephone Encounter - Nadiya Gomez [facility] - 11/16/2023 2:18 PM EDT Provided 90 days supply with 0 refill(s). Per refill protocol patient should have REPEAT LIPID PANEL and AST/ALT on file after dose increases on Atorvastatin. Reviewed AMP report, Care Gaps/Health Maintenance, medications list, and for any routine labs typically ordered for this patient. Lab orders placed. Please contact patient to advise of labs ordered for blood draw. Recommend patient to fast if able for labs. Patient may still have water and regular medications. Advise to obtain labs before requesting the next refill. Thanks, Nadiya Gomez, Gael Clinical Pharmacist [facility] (formerly [email or web address]) [phone] 11/16/2023, 2:19 PM documented in this encounter Plan of Treatment Upcoming Encounters Date Type Department Care Team (Late st Contact Info) Description 11/24/2023 10:40 AM EDT Office Visit Podiatry [facility] [address] [place] [address] Brandee Oden DPM [address] [place] [address] 01/04/2024 3:40 PM EDT Office Visit Family Practice [facility] [address] [facility] [place] [address] La Blanca III, MD [address] [facility] [place] [address] Scheduled Orders Name Type Priority Associated Diagnoses Orde r Schedule ALT Lab Routine Encounter for long-term (current) use of medications Expected: 11/23/2023 (Approximate), Expires: 11/15/2024 AST Lab Routine Encounter for long-term (current) use of medications Expected: 11/23/2023 (Approximate), Expires: 11/15/2024 Scheduled Procedures Name Priority Associated Diagnoses Date/Ti me COLONOSCOPY FLEXIBLE PROXIMAL DIAGNOSTIC Recall History of colon polyps Health Maintenance Due Date Last Done Comments DISCUSS TOBACCO CESSATION (REFER TO SMARTSET #[id number]) 1960 HIV Screening 02/02/1975 Zoster Vaccines (1 [...] Diagnosis Encounter for long-term (current) use of medications- Primary Encounter for long-term (current) use of other medications documented in this encounter Care Teams Oil Operator Relationship Specialty Start Date End Date La Blanca III, MD [address] [facility] [place] [address] PCP - General Family Medicine 05/28/20 documented as of this encounter
--- OUTSIDE RECORDS SUMMARY | 2024-03-23 02:18 | External Medical Summary | Summary of Care ---
Author Name Unknown Organization [facility] Address [address] [place] [address] Phone [phone] Care Team Providers Care Intelligence Specialist Name Role Phone Justice DOUGHERTY MD, Salbador Becker Primary Care Provider [phone] Encounter Details Date Type Department Care Team (Late st Contact Info) Description 11/21/2023 Orders Only PATIENT PORTAL DO NOT DELETE THIS DEPT USED BY [place] [address] Allergies Active Allergy Reactions Criticality Noted Date Comments Pollen Other (Please comment) 11/16/2021 Excessive post nasal drip documented as of this encounter (statuses as of 11/21/2023) Medications Medication Sig Dispensed Refills Start Date End Date Status Ibuprofen 200 MG Oral Tablet (MOTRIN) Take 1 Tablet by mouth every 4 hours as needed. 0 Active Vitamin D 25 MCG (1000 UT) Oral Tablet Take by mouth. 0 Active OneTouch Delica Lancets 33G Check up to 4 times daily E11.9 100 Each 6 06/18/2020 Active [facility] Next Monitor w/Device Kit Use as directed. [...] as of this encounter (statuses as of 11/21/2023) Active Problems Problem Noted Date Diagnosed Date Acquired hypothyroidism 11/16/2021 Dyslipidemia 11/16/2021 Type 2 diabetes mellitus wit h hemoglobin A1c goal of less than 7.0% 09/03/2020 documented as of this encounter (statuses as of 11/21/2023) Immunizations Name Administration Dates Next Due COVID-19 [...] 11/24/2023 10:40 AM EDT Office Visit Podiatry [address] [place] [address] Brandee Oden, JD [address] [place] [address] 01/04/2024 3:40 PM EDT Office Visit Family Practice [facility] [address] [facility] [place] [place] [address] Salbador Rendon III, MD 200 [facility] [place] [address] Scheduled Procedures Name Priority Associated Diagnoses Date/Ti me COLONOSCOPY FLEXIBLE PROXIMAL DIAGNOSTIC Recall History of colon polyps Health Maintenance Due Date Last Done Comments DISCUSS TOBACCO CESSATION (REFER TO SMARTSET #7089) 1960 HIV Screening 02/02/1975 Zoster Vaccines (1 [...] filedocumented as of this encounter Care Teams Intelligence Specialist Relationship Specialty Start Date End Date Salbador Rendon III, MD 200 [place] [address] PCP - General Family Medicine 05/28/20 documented as of this encounter
[2024-03-23] MEDS ORDERED: PHARMACY GLYCEMIC MGMT CONSULT PRN (03:15)
[2024-03-23] MEDS: INSULIN ASPART PER UNIT CHARGE SC STA (03:41)
[2024-03-23] MEDS: LANTUS PER UNIT CHARGE SC ONE (06:05)
[2024-03-23] MEDS ORDERED: Nursing to Pharmacy Communication SCH (06:15)
[2024-03-23 06:23] LABS: Hematocrit (blood only) 52.2 % (42.0-52.0); Hemoglobin 16.3 g/dl (14.0-18.0); Mean Corpuscular Hemoglobin 31.4 pg (25.0-34.0); Mean Corpuscular Hgb Conc 31.2 g/dL (32.0-36.0); Mean Corpuscular Volume 100.6 fL (80.0-100.0); Mean Platelet Volume 10.8 fL (9.4-12.4); Platelet Count 196 K/uL (130-400); RDW Coefficient of Variation 14.7 % (11.5-14.5); RDW Standard Deviation 54.4 fL (36.4-46.3); Red Blood Count 5.19 M/uL (4.70-6.10); White Blood Count 13.27 K/ul (4.8-10.8)
[2024-03-23 06:53] LABS: Basophils # (auto) 0.02 K/uL (0.00-0.20); Basophils % (auto) 0.2 %; Immature Granulocytes # (auto) 0.18 K/uL (0.01-0.20); Immature Granulocytes % (auto) 1.4 %; Lymphocytes # (auto) 0.67 K/uL (1.20-3.40); Monocytes # (auto) 0.29 K/uL (0.11-0.59); Monocytes % (auto) 2.2 %; Neutrophils # (auto) 12.11 K/uL (1.40-6.50); Neutrophils % (auto) 91.2 %
[2024-03-23 06:59] LABS: BUN Creatinine Ratio 19.8 (10-20); Calcium 8.9 mg/dl (8.6-10.3); Creatinine Clr Calc Pharmacy 72.5 ml/min; Est GFR (African American) 90.7 ml/min; Est GFR (Non-African American) 78.2 ml/min; Potassium 4.9 mmol/L (3.5-5.1)
[2024-03-23] MEDS: LEVOTHYROXINE SODIUM 25 MCG TABLET PO SCH (07:09)
--- NOTE | 2024-03-23 07:55 | Hospitalist Progress Note ---
Date of Service March 23, 2024 Assessment & Plan (1) Acute respiratory failure with hypoxia and hypercapnia: (2) Acute exacerbation of chronic obstructive pulmonary disease: (3) Dyspnea on exertion: (4) Type 2 diabetes mellitus without complication: (5) Hypothyroidism: Plan Mr. Abilio Georges is a 64 year old male with tobacco abuse, DM-2, Hypothyroidism who presented to the ED from the PCP office for evaluation of shortness of breath. CT revealed signs of emphysema #Acute hypoxic hypercarbic respiratory failure suspected due to undiagnosed COPD #Acute bronchitis CTA with no PNA or PE but diffuse centrilobular emphysema. ECHO 55-60%, RVH noted, mild LVH Procal negative Continue to wean O2 as able Start Perforomist BID with continue Pulmicort Start LAMA/LABA/ICS inhaler Continue duonebs Initially increased to q8h however, noted improvement throughout morning, redu lisseth to q12h Continue Mucinex and flutter valve Wean o2 as able #Suspected LUZ Overnight pulse ox deferred 2/2 O2 requirement #DM-2- uncontrolled, Ha1c 9.4 BG 278. Hold home metformin and Jardiance. lantus, humalog as hyperglycemia is expected with steroids glycemic pharmacy following #Hypothyroidism- continue synthroid #Tobacco abuse- 40+ pack year history of smoking. smokes 1 ppd. Hasn't started on chantix yet. Declines nicoderm patch #Left shoulder pain- following OP with pain management and PT OT. Lidoderm patch DVT ppx- sc lovenox Dispo- PCU tele Full code Time spent- Approx 76 mins Admission and Anticipated Discharge Date Admission Date: March 22, 2024 Subjective On 10L O2 overnight, but able to reduce to 6L today Seems to not be in overt distress, but states he hasn't walked much and thats when his symptoms were more notable States he does notice more improvement with is breathing after the neb treatments Denies chest pain, worsening cough, or other acute concerns Physical Exam Constitutional: WD/WN, vitals as above Respiratory: normal respiratory effort, lungs clear to auscultation Cardiovascular: scattered expiratory wheeze, few Gastrointestinal (Abdomen): normal bowel sounds, soft, nontender, no hepatosplenomegaly Results & Data Results & Data Vital Signs (Past 12 Hours) Vital Signs Temp Pulse Pulse Pulse Resp BP Pulse Ox 03/23/24 07:15 73 03/23/24 07:02 94 H 18 94 03/23/24 02:59 37 C 79 22 158/72 H 95 03/22/24 23:39 36.5 C 78 16 131/74 95 03/22/24 23:23 83 03/22/24 22:17 03/22/24 20:24 36.5 C 95 H 20 157/88 H 95 03/22/24 20:14 03/22/24 20:09 95 H Pulse Ox O2 Del Method O2 Del Method O2 Flow Rate 03/23/24 07:15 03/23/24 07:02 Oxymask 10 03/23/24 02:59 Oxymask 9 03/22/24 23:39 Oxymask 9 03/22/24 23:23 03/22/24 22:17 88 L Room Air 03/22/24 20:24 Oxymask 4 03/22/24 20:14 Nasal Cannula 4 03/22/24 20:09 Laboratory Results Short CBC 03/22/24 03/23/24 Range/Units 10:15 05:48 WBC 10.69 13.27 H (4.8-10.8) K/ul Hgb 17.5 16.3 (14.0-18.0) g/dl Hct 54.8 H 52.2 H (42.0-52.0) % Plt Count 189 196 (130-400) K/uL BMP 03/22/24 03/23/24 10:15 05:48 Sodium 137 137 Potassium 4.6 4.9 Chloride 99 99 Carbon Dioxide 34 H 31 BUN 11 20 Creatinine 0.92 1.01 Glucose 278 H 334 H* Calcium 10.0 8.9 Liver Function 03/22/24 Range/Units 10:15 Total Bilirubin 0.6 (0.2-1.0) mg/dl AST 39 (13-39) U/L ALT 51 (7-52) U/L Alkaline Phosphatase 100 (34-104) U/L Albumin 4.5 (3.4-5.0) gm/dl Urine 03/22/24 Range/Units 15:10 Urine Color Yellow Urine Appearance Clear (Clear) Urine pH 5.0 (4.5-7.5) Ur Specific [place] > 1.045 H (1.000-1.030) Urine Protein Trace H (Negative) Urine Glucose (UA) 3+ H (Negative) Medications Administered Home Medications Medication Instructions Recorded Confirmed Last Taken atorvastatin 40 mg tablet 40 mg PO DAILY 03/22/24 03/22/24 03/21/24 cholecalciferol (vitamin D3) 50 50 mcg PO DAILY 03/22/24 03/22/24 03/21/24 mcg (2,000 unit) capsule (Vitamin D3) cyanocobalamin (vitamin B-12) 500 500 mcg PO DAILY 03/22/24 03/22/24 03/21/24 mcg tablet (Vitamin B-12) empagliflozin 25 mg tablet 25 mg PO DAILY 03/22/24 03/22/24 03/21/24 (Jardiance) levothyroxine 25 mcg tablet 25 mcg PO DAILY 03/22/24 03/22/24 03/21/24 metformin 850 mg tablet 850 mg PO BID 03/22/24 03/22/24 03/21/24 Active Medications Generic Name Dose Route Start Last Admin Trade Name Freq PRN Reason Stop Dose Admin Albuterol 3 ml 03/22/24 15:30 03/23/24 07:01 Albut/Ipratrop 3mg/0.5mg Neb 3 Ml Vial INH 04/21/24 15:29 3 ml QIDR ROMINA Administration Budesonide 0.5 mg 03/22/24 19:00 03/23/24 07:01 Budesonide 0.5 Mg/2 Ml Vial (Pulmicort) NEB 04/21/24 18:59 0.5 mg BIDR ROMINA Administration Cetirizine HCl 10 mg 03/22/24 21:00 03/22/24 22:42 Cetirizine Hcl 10 Mg Tablet PO 04/21/24 20:59 10 mg HS ROMINA Administration Cyanocobalamin 500 mcg 03/22/24 15:30 03/22/24 16:12 Cyanocobalamin (B-12) 500 Mcg Tablet PO 04/21/24 15:29 500 mcg DAILY ROMINA Administration Guaifenesin 600 mg 03/22/24 21:00 03/22/24 22:41 Guaifenesin 600 Mg Tabcr PO 04/21/24 20:59 600 mg Q12 ROMINA Administration Insulin Aspart 0 units 03/22/24 16:30 03/22/24 20:22 Insulin Aspart Per Unit Charge SC 04/21/24 16:29 10 units ACHS ROMINA Administration Insulin Glargine 8 units 03/22/24 21:00 03/22/24 20:21 Lantus Per Unit Charge SQ 04/21/24 20:59 8 units HS ROMINA Administration Levothyroxine Sodium 25 mcg 03/23/24 06:30 03/23/24 07:09 Levothyroxine Sodium 25 Mcg Tablet PO 04/22/24 06:29 25 mcg DAILYBB ROMINA Administration Miscellaneous 1 each 03/22/24 21:00 03/22/24 22:48 Remove Lidoderm Patch N/A 04/21/24 20:59 Not Given DAILY@2100 [facility] Vitamin D 50 mcg 03/22/24 15:30 03/22/24 16:12 Cholecalciferol 25 Mcg (1000 Units) Tab PO 04/21/24 15:29 50 mcg DAILY ROMINA Administration
[2024-03-23 08:05] LABS: Estimated Average Glucose 223 mg/dl; Hemoglobin A1C 9.4 % (4.5-5.6)
[2024-03-23] MEDS: FORMOTEROL 20 MCG/2 ML VIAL NEB SCH ×2 (08:14→09:26)
[2024-03-23] MEDS: FORMOTEROL 20 MCG/2 ML VIAL ONE (08:14)
--- NOTE | 2024-03-23 08:58 | Pharmacy Report ---
Pharmacy Glycemic Short Note 2 - Date of Service March 23, 2024 - Glycemic Short BSG Results (Last 24 hours): 03/22/24 03/22/24 03/22/24 10:15 17:38 20:08 Glucose 278 H POC Glucose 298 H 390 H* 03/22/24 03/23/24 03/23/24 23:57 02:51 05:48 Glucose 334 H* POC Glucose 339 H* 316 H* 03/23/24 07:53 Glucose POC Glucose 285 H OUTPATIENT ANTIDIABETIC REGIMEN: * Empagliflozin 25 mg PO daily * Metformin 850 mg PO BIDM HbA1c: 9.4% (03/23/24) ASSESSMENT: * RW is a 64 year old male admitted w/ acute exacerbation of COPD * Patient is ordered IV methylprednisolone 40 mg q8h * Poorly controlled T2DM as an outpatient (blood sugar of 278 mg/dL on presentation) * Significant hyperglycemia thus far this admission due to IV steroids * If blood sugar above 300 mg/dL at lunch, will order IV insulin bolus * 8 unit IV bolus ordered for BSG of 336 mg/dL PLAN FOR INPATIENT GLYCEMIC CONTROL: * Hold outpatient oral diabetes medications * Basal insulin * Lantus 20 units SC x 1 this morning * Lantus 10 units SC x 1 at lunch * Bolus insulin * NovoLog per scale ACHS or Q6hrs while NPO * Goal Range: Low 110 mg/dL - High 140 mg/dL * Correction Factor: 20 mg/dL/unit * Nutritional / Prandial insulin per carb ratio of 1 unit per 7 grams CHO consumed
[2024-03-23] MEDS: methylPREDNISolone 40 MG in SYRINGE 0 ML IV SCH ×2 (09:54→20:26)
[2024-03-23] MEDS: AZITHROMYCIN 250 MG TAB PO SCH (09:54)
[2024-03-23] MEDS: ATORVASTATIN 40 MG TAB PO SCH (09:55)
[2024-03-23] MEDS: FLUTICASONE FUROATE 100MCG 14 PUFFS/INHALER INH SCH (09:55)
[2024-03-23] MEDS: LIDOCAINE 5% 1 PATCH TD SCH (09:56)
[2024-03-23] MEDS: UMECLIDINIUM/VILANTEROL 62.5/25MCG 7 PUFFS/INHALER INH SCH (09:56)
[2024-03-23] MEDS: ENOXAPARIN INJ 40 MG/0.4 ML SYR SQ SCH (09:56)
[2024-03-23] MEDS ORDERED: LANTUS PER UNIT CHARGE SC ONE (13:00)
[2024-03-23] MEDS: INSULIN HUMAN REGULAR PER UNIT 8 UNITS in SYRINGE 7.92 ML IV ONE (13:11)
[2024-03-23] MEDS: SODIUM CHLORIDE 0.65% NA SOLN 45 ML (OCEAN) ONE (13:12)
[2024-03-23] MEDS: SODIUM CHLORIDE 0.65% NA SOLN 45 ML (OCEAN) PRN (13:12)
[2024-03-23] MEDS: LANTUS PER UNIT CHARGE SQ ONE ×2 (13:14→22:56)
--- NOTE | 2024-03-23 19:09 | Electrocardiogram Report ---
Test Reason : Blood Pressure : / mmHG Vent. Rate : 096 BPM Atrial Rate : 096 BPM P-R Int : 126 ms QRS Dur : 086 ms QT Int : 338 ms P-R-T Axes : 067 -48 069 degrees QTc Int : 427 ms Normal sinus rhythm Left anterior fascicular block Poor R wave progression, consider anterior IN vs. lead placement vs. LVH Abnormal ECG No previous ECGs available Confirmed by Ta Kuhn ([id number]) on 03/23/2024 7:08:57 PM Referred By: REFERRED SELF Confirmed By:Ta Kuhn
[2024-03-24] MEDS: INSULIN ASPART PER UNIT CHARGE SC SCH ×2 (00:35→23:39)
[2024-03-24 07:31] LABS: Hematocrit (blood only) 48.1 % (42.0-52.0); Hemoglobin 15.3 g/dl (14.0-18.0); Mean Corpuscular Hemoglobin 31.6 pg (25.0-34.0); Mean Corpuscular Hgb Conc 31.8 g/dL (32.0-36.0); Mean Corpuscular Volume 99.4 fL (80.0-100.0); Mean Platelet Volume 11.2 fL (9.4-12.4); Platelet Count 196 K/uL (130-400); RDW Coefficient of Variation 14.7 % (11.5-14.5); RDW Standard Deviation 53.9 fL (36.4-46.3); Red Blood Count 4.84 M/uL (4.70-6.10); White Blood Count 18.53 K/ul (4.8-10.8)
[2024-03-24 07:51] LABS: BUN Creatinine Ratio 28.8 (10-20); Calcium 8.7 mg/dl (8.6-10.3); Creatinine Clr Calc Pharmacy 70.4 ml/min; Est GFR (African American) 87.5 ml/min; Est GFR (Non-African American) 75.5 ml/min; Potassium 5.4 mmol/L (3.5-5.1)
[2024-03-24 08:05] LABS: Folate (Folic Acid),Ser orPlas 9.9 ng/ml (>5.38)
[2024-03-24] MEDS: LANTUS PER UNIT CHARGE SC SCH ×2 (08:47→20:53)
[2024-03-24] MEDS ORDERED: LANTUS PER UNIT CHARGE SC SCH (09:00)
[2024-03-24] MEDS ORDERED: ALBUT/IPRATROP 3MG/0.5MG NEB 3 ML VIAL INH PRN (12:04)
--- NOTE | 2024-03-24 12:08 | Hospitalist Progress Note ---
Date of Service March 24, 2024 Assessment & Plan (1) Acute respiratory failure with hypoxia and hypercapnia: (2) Acute exacerbation of chronic obstructive pulmonary disease: (3) Dyspnea on exertion: (4) Type 2 diabetes mellitus without complication: (5) Hypothyroidism: Plan Mr. Abilio Georges is a 64 year old male with tobacco abuse, DM-2, Hypothyroidism who presented to the ED from the PCP office for evaluation of shortness of breath. CT revealed signs of emphysema #Acute hypoxic hypercarbic respiratory failure suspected due to undiagnosed COPD #Acute bronchitis CTA with no PNA or PE but diffuse centrilobular emphysema. ECHO 55-60%, RVH noted, mild LVH Procal negative Continue to wean O2 as able Continue Perforomist BID with continue Pulmicort Continue LAMA/LABA/ICS inhaler Continue duonebs, but transition to prn Azithromycin x 3 days IV soludmedrol x 1 more day, then po x 2 days Continue Mucinex and flutter valve Wean o2 as able Will need 2-step PT/OT #Suspected LUZ Overnight pulse ox deferred 2/2 O2 requirement #DM-2- uncontrolled, Ha1c 9.4 BG 278. Hold home metformin and Jardiance. lantus, humalog as hyperglycemia is expected with steroids glycemic pharmacy following Likely will increase home metformin and add glipizide Counseled on lifestyle management for 30min: must discontinue mountain dew intake reviewed last year of A1c, increase since november as patient started drinking soda #Hypothyroidism- continue synthroid #Tobacco abuse- 40+ pack year history of smoking. smokes 1 ppd. Hasn't started on chantix yet. Declines nicoderm patch #Left shoulder pain- following OP with pain management and PT OT. Lidoderm patch DVT ppx- sc lovenox Dispo- PCU tele Full code Admission and Anticipated Discharge Date Admission Date: March 22, 2024 Subjective Down to 2L this am Reports being able to sleep better and denies any other acute concerns States that he is concerns about his O5P--[id number] conversation revealed patient drinking notable amounts of mountain dew at home in recent months which may reveal the sudden increase from usual values Patient reports fear and inability to give self insulin but wishes to adjust oral regimen Physical Exam Constitutional: WD/WN, vitals as above Respiratory: diminshed, but no noted wheezing Cardiovascular: RRR, no murmur, no edema Gastrointestinal (Abdomen): normal bowel sounds, soft, nontender, no hepatosplenomegaly Results & Data Results & Data Vital Signs (Past 12 Hours) Vital Signs Temp Pulse Pulse Resp BP Pulse Ox O2 Del Method 03/24/24 11:21 76 18 93 Nasal Cannula 03/24/24 11:10 36.5 C 70 16 118/71 97 High Flow Nasal Cannula 03/24/24 10:24 Nasal Cannula 03/24/24 08:32 36.4 C L 73 18 98/60 L 92 High Flow Nasal Cannula 03/24/24 07:19 64 03/24/24 07:12 60 20 96 Nasal Cannula 03/24/24 02:29 36.5 C 62 18 115/76 98 High Flow Nasal Cannula O2 Flow Rate 03/24/24 11:21 2 03/24/24 11:10 2 03/24/24 10:24 2 03/24/24 08:32 03/24/24 07:19 03/24/24 07:12 5 03/24/24 02:29 4 Laboratory Results Short CBC 03/24/24 Range/Units 06:23 WBC 18.53 H (4.8-10.8) K/ul Hgb 15.3 (14.0-18.0) g/dl Hct 48.1 (42.0-52.0) % Plt Count 196 (130-400) K/uL BMP 03/24/24 06:23 Sodium 134 L Potassium 5.4 H Chloride 98 Carbon Dioxide 30 BUN 30 H Creatinine 1.04 Glucose 355 H* Calcium 8.7 Medications Administered Home Medications Medication Instructions Recorded Confirmed Last Taken atorvastatin 40 mg tablet 40 mg PO DAILY 03/22/24 03/22/24 03/21/24 cholecalciferol (vitamin D3) 50 50 mcg PO DAILY 03/22/24 03/22/24 03/21/24 mcg (2,000 unit) capsule (Vitamin D3) cyanocobalamin (vitamin B-12) 500 500 mcg PO DAILY 03/22/24 03/22/24 03/21/24 mcg tablet (Vitamin B-12) empagliflozin 25 mg tablet 25 mg PO DAILY 03/22/24 03/22/24 03/21/24 (Jardiance) levothyroxine 25 mcg tablet 25 mcg PO DAILY 03/22/24 03/22/24 03/21/24 metformin 850 mg tablet 850 mg PO BID 03/22/24 03/22/24 03/21/24 Active Medications Generic Name Dose Route Start Last Admin Trade Name Omar STORY Reason Stop Dose Admin Albuterol 3 ml 03/22/24 15:30 03/24/24 11:20 Albut/Ipratrop 3mg/0.5mg Neb 3 Ml Vial INH 04/21/24 15:29 3 ml QIDR ROMINA Administration Atorvastatin Calcium 40 mg 03/23/24 09:00 03/24/24 08:51 Atorvastatin 40 Mg Tab PO 04/22/24 08:59 40 mg DAILY ROMINA Administration Azithromycin 500 mg 03/23/24 09:00 03/24/24 08:50 Azithromycin 250 Mg Tab PO 03/26/24 08:59 500 mg QAM ROMINA Administration Budesonide 0.5 mg 03/22/24 19:00 03/24/24 07:11 Budesonide 0.5 Mg/2 Ml Vial (Pulmicort) NEB 04/21/24 18:59 0.5 mg BIDR ROMINA Administration Cetirizine HCl 10 mg 03/22/24 21:00 03/23/24 20:25 Cetirizine Hcl 10 Mg Tablet PO 04/21/24 20:59 10 mg HS ROMINA Administration Cyanocobalamin 500 mcg 03/22/24 15:30 03/24/24 08:50 Cyanocobalamin (B-12) 500 Mcg Tablet PO 04/21/24 15:29 500 mcg DAILY ROMINA Administration Enoxaparin Sodium 40 mg 03/23/24 09:00 03/24/24 08:51 Enoxaparin Inj 40 Mg/0.4 Ml Syr SQ 04/22/24 08:59 40 mg QAM ROMINA Administration Fluticasone Furoate 1 puffs 03/23/24 09:00 03/24/24 08:53 Fluticasone Furoate 100mcg 14 Puffs/Inhaler INH 04/22/24 08:59 1 puffs DAILY ROMINA Administration Formoterol Fumarate 20 mcg 03/23/24 09:00 03/24/24 07:11 Formoterol 20 Mcg/2 Ml Vial NEB 04/22/24 08:59 20 mcg BIDR ROMINA Administration Guaifenesin 600 mg 03/22/24 21:00 03/24/24 08:51 Guaifenesin 600 Mg Tabcr PO 04/21/24 20:59 600 mg Q12 ROMINA Administration Insulin Aspart 0 units 03/22/24 16:30 03/24/24 08:47 Insulin Aspart Per Unit Charge SC 04/21/24 16:29 34 units ACHS ROMINA Administration Insulin Glargine 0 units 03/24/24 09:00 03/24/24 08:47 Lantus Per Unit Charge SC 04/23/24 08:59 40 units DAILY ROMINA Administration Protocol Levothyroxine Sodium 25 mcg 03/23/24 06:30 03/24/24 04:16 Levothyroxine Sodium 25 Mcg Tablet PO 04/22/24 06:29 25 mcg DAILYBB ROMINA Administration Lidocaine 1 patch 03/23/24 09:00 03/24/24 08:52 Lidocaine 5% 1 Patch TD 04/22/24 08:59 1 patch QAM ROMINA Administration Miscellaneous 1 each 03/22/24 21:00 03/23/24 20:26 Remove Lidoderm Patch N/A 04/21/24 20:59 1 each DAILY@2100 ROMINA Administration Sodium Chloride 2 sprays 03/23/24 12:29 03/23/24 13:12 Sodium Chloride 0.65% Na Soln 45 Ml ([place]) NA 04/22/24 12:28 2 sprays NOW PRN Administration nasal dryness Umeclidinium/Vilanterol 1 puffs 03/23/24 09:00 03/24/24 08:53 Umeclidinium/Vilanterol 62.5/25mcg 7 Puffs/Inhaler INH 04/22/24 08:59 1 puffs DAILY ROMINA Administration Vitamin D 50 mcg 03/22/24 15:30 03/24/24 08:50 Cholecalciferol 25 Mcg (1000 Units) Tab PO 04/21/24 15:29 50 mcg DAILY ROMINA Administration
[2024-03-24] MEDS: methylPREDNISolone 40 MG in SYRINGE 0 ML IV SCH (12:27)
--- NOTE | 2024-03-24 14:22 | Pharmacy Report ---
Pharmacy Glycemic Short Note 2 - Date of Service March 24, 2024 - Glycemic Short BSG Results (Last 24 hours): 03/23/24 03/23/24 03/23/24 17:09 17:10 20:01 Glucose POC Glucose 364 H* 372 H* 354 H* 03/23/24 03/24/24 03/24/24 20:02 00:23 04:08 Glucose POC Glucose 344 H* 187 H 246 H 03/24/24 03/24/24 03/24/24 06:23 08:10 11:32 Glucose 355 H* POC Glucose 314 H* 263 H OUTPATIENT ANTIDIABETIC REGIMEN: * Empagliflozin 25 mg PO daily * Metformin 850 mg PO BIDM HbA1c: 9.4% (03/23/24) ASSESSMENT: 03/24: * Abilio experienced severe hyperglycemia yesterday despite aggressive insulin dosing (40 units of basal + 84 units bolus + IV insulin bolus) * Fasting BSG of 314 mg/dL. Patient scheduled to receive Lantus 40 units this AM. * Methylprednisolone decreased from 40 mg IV q12h to daily x 1 dose today (given @ 1227). Will start prednisone 40 mg daily on 03/25. * Anticipate decreased insulin needs with steroid reduction. However, patient will likely continue to require basal insulin given A1c of 9.4%. Of note, A1c likely affected by recent frequent Mountain Dew consumption. Will loosen CF/CR later this evening or 8/4 AM based on BSG trend. 03/23: * RW is a 64 year old male admitted w/ acute exacerbation of COPD * Patient is ordered IV methylprednisolone 40 mg q8h * Poorly controlled T2DM as an outpatient (blood sugar of 278 mg/dL on presentation) * Significant hyperglycemia thus far this admission due to IV steroids * If blood sugar above 300 mg/dL at lunch, will order IV insulin bolus * 8 unit IV bolus ordered for BSG of 336 mg/dL PLAN FOR INPATIENT GLYCEMIC CONTROL: * Hold outpatient oral diabetes medications * Basal insulin * Lantus 40 units SC x 1 this morning * Lantus 0 -10 units SC qHS (10 units for BSG 200 mg/dL or more) * Basal dose to be reassessed 8/4 AM * Bolus insulin * NovoLog per scale ACHS or Q6hrs while NPO * Goal Range: Low 110 mg/dL - High 140 mg/dL * Correction Factor: 12 mg/dL/unit * Nutritional / Prandial insulin per carb ratio of 1 unit per 4 grams CHO consumed
[2024-03-24 16:05] LABS: BUN Creatinine Ratio 33.9 (10-20); Calcium 9.3 mg/dl (8.6-10.3); Creatinine Clr Calc Pharmacy 65.4 ml/min; Potassium 5.3 mmol/L (3.5-5.1)
[2024-03-24] MEDS: FUROSEMIDE INJ 20 MG/2 ML VIAL IV STA (16:27)
[2024-03-24] MEDS: POLYETHYLENE (MIRALAX) 17 GM PACK PO PRN (17:56)
[2024-03-25 07:15] LABS: Hematocrit (blood only) 49.2 % (42.0-52.0); Hemoglobin 15.5 g/dl (14.0-18.0); Mean Corpuscular Hemoglobin 31.7 pg (25.0-34.0); Mean Corpuscular Hgb Conc 31.5 g/dL (32.0-36.0); Mean Corpuscular Volume 100.6 fL (80.0-100.0); Platelet Count 191 K/uL (130-400); RDW Coefficient of Variation 14.9 % (11.5-14.5); RDW Standard Deviation 55.8 fL (36.4-46.3); Red Blood Count 4.89 M/uL (4.70-6.10); White Blood Count 14.63 K/ul (4.8-10.8)
[2024-03-25 07:24] LABS: Calcium 8.6 mg/dl (8.6-10.3); Est GFR (African American) 104.2 ml/min; Est GFR (Non-African American) 89.9 ml/min; Magnesium 2.5 mg/dl (1.7-2.4); Phosphorus 4.2 mg/dl (2.5-4.9); Potassium 4.6 mmol/L (3.5-5.1)
[2024-03-25] MEDS: LANTUS PER UNIT CHARGE SC SCH (08:34)
[2024-03-25] MEDS: predniSONE 20 MG TAB PO SCH (08:35)
[2024-03-25] MEDS: NovoLIN-N (NPH) PER UNIT CHARGE SQ SCH (08:39)
[2024-03-25] MEDS: OXYMETAZOLINE 0.05% 30 ML BTL PRN (10:49)
--- NOTE | 2024-03-25 11:53 | Discharge Summary ---
Discharge Summary Date of Service March 25, 2024 Principal Dx & Hospital Course #1 = Principal Diagnosis (1) Acute respiratory failure with hypoxia and hypercapnia: (2) Acute exacerbation of chronic obstructive pulmonary disease: (3) Dyspnea on exertion: (4) Type 2 diabetes mellitus without complication: (5) Hypothyroidism: Plan Mr. Abilio Georges is a 64 year old male with tobacco abuse, DM-2, Hypothyroidism who presented to the ED from the PCP office for evaluation of shortness of breath. CT revealed signs of emphysema #Acute hypoxic hypercarbic respiratory failure suspected due to undiagnosed COPD #Acute bronchitis CTA with no PNA or PE but diffuse centrilobular emphysema. ECHO 55-60%, RVH noted, mild LVH Procal negative Continue to wean O2 as able Continue Perforomist BID with continue Pulmicort Continue LAMA/LABA/ICS inhaler Continue duonebs, but transition to prn Azithromycin x 3 days IV soludmedrol x 1 more day, then po x 2 days Continue Mucinex and flutter valve Wean o2 as able Will need 2-step PT/OT #Suspected LUZ Overnight pulse ox deferred 2/2 O2 requirement #DM-2- uncontrolled, Ha1c 9.4 BG 278. Hold home metformin and Jardiance. lantus, humalog as hyperglycemia is expected with steroids glycemic pharmacy following Likely will increase home metformin and add glipizide Counseled on lifestyle management for 30min: must discontinue mountain dew intake reviewed last year of A1c, increase since november as patient started drinking soda #Hypothyroidism- continue synthroid #Tobacco abuse- 40+ pack year history of smoking. smokes 1 ppd. Hasn't started on chantix yet. Declines nicoderm patch #Left shoulder pain- following OP with pain management and PT OT. Lidoderm patch DVT ppx- sc lovenox Dispo- PCU tele Full code Admission HPI Per Admitting Provider Abilio Georges is a 64 year old male with tobacco abuse, DM-2, Hypothyroidism who presented to the ED from the PCP office for evaluation of shortness of breath. Patient was at pain management clinic for evaluation of left shoulder pain, then walked in to the PCP office for shortness of breath where he was found to be hypoxic at 83% on room air and sent to ED for evaluation. In the ED, he was hypoxic and was put on BIPAP followed by oxymask. He felt better with oxygen on. States LOWERY ongoing for about 2 weeks. Started with nasal congestion and sinus symptoms which cleared up with afrin but dyspnea never improved. Feels dyspneic with exertion and has to rest when he is going up the stairs to his apartment (lives in second floor and 17 steps, and is short of breath by the time he is there and has to rest for about 10 mins). No orthopnea but some PND intermittently- states that he sometimes has to wake up at night gasping for breath. Does snore and think he has sleep apnea- was discussing about sleep study with PCP but he is currently out for surgery. Still smoking a PPD. Denies any prior diagnosis of COPD or asthma. Never seen a lung doctor or used any inhalers. Has some phlegm at baseline but this time it was brown phlegm but it is already clearing up. No fever, chills, N/V, CP, diaphoresis. Updated Medication List Medication Instructions Recorded Confirmed Type atorvastatin 40 mg tablet 40 mg PO DAILY 03/22/24 03/22/24 History cholecalciferol (vitamin D3) 50 50 mcg PO DAILY 03/22/24 03/22/24 History mcg (2,000 unit) capsule (Vitamin D3) cyanocobalamin (vitamin B-12) 500 500 mcg PO DAILY 03/22/24 03/22/24 History mcg tablet (Vitamin B-12) empagliflozin 25 mg tablet 25 mg PO DAILY 03/22/24 03/22/24 History (Jardiance) levothyroxine 25 mcg tablet 25 mcg PO DAILY 03/22/24 03/22/24 History cetirizine 10 mg tablet 10 mg PO HS #30 tabs 03/25/24 Rx fluticasone fur. 100 mcg-umeclid 1 inh inhalation DAILY #60 ea 03/25/24 Rx 62.5 mcg-vilant 25 mcg inhalat.powder (Trelegy Ellipta) glipizide 5 mg tablet 5 mg PO BID #60 tabs 03/25/24 Rx guaifenesin 600 mg tablet, 600 mg PO Q12 #30 tabs 03/25/24 Rx extended release 12 hr (Mucinex) lidocaine 5 % topical patch 1 patch transdermal QAM #30 ea 03/25/24 Rx metformin 1,000 mg tablet 1,000 mg PO BIDWMEAL #60 tabs 03/25/24 Rx Hospital Stay Data Consultations 03/22/24 12:44 ED Decision to Admit Stat Diagnostic Imagining Performed 03/22/24 11:01 CT for pulmonary embolism PE [CT angio chest PE protocol] Stat Pending Results Patient Have Any Pending Studies at Discharge: No Discharge Instructions Given to Patient (Per Discharging Provider) You were admitted for low oxygen levels and shortness of breath. You were noted to have signs of diffuse emphysema on imaging. You were treated for COPD exacerbation and symptoms resolved with inhalers and steriods. It was encouraged that you please continue to attempt smoking cessation. You were weaned off of oxygen while admitted. Please discuss obtaining a PFT with your PCP (pulmonary function test to establish formal COPD diagnosis) You will be prescribed an inhaler to use once daily in the morning. Please continue mucinex as needed for congestion and other over the counter agents. Please avoid using Afrin or other medicated nasal sprays for more than 48 hours given concerns of refractory congestion (flonase can be used) You were noted to have an A1C 9.4% It was encouraged to consider insulin, however, given reservations about self administration please do the following Metformin increased to 1000mg two times a day Glipizide 5mg two times a day with meals added Please check sugars up to 4 times a day as directed by PCP Please follow up with PCP in 1-2 weeks to discuss glucose trends Please work to continue to remove soda/juices from diet as this is an often large source of carbs/sugar in diet
--- NOTE | 2024-03-25 13:48 | Hospitalist Progress Note ---
Date of Service March 25, 2024 Assessment & Plan (1) Acute respiratory failure with hypoxia and hypercapnia: (2) Acute exacerbation of chronic obstructive pulmonary disease: (3) Dyspnea on exertion: (4) Type 2 diabetes mellitus without complication: (5) Hypothyroidism: Plan Mr. Abilio Georges is a 64 year old male with tobacco abuse, DM-2, Hypothyroidism who presented to the ED from the PCP office for evaluation of shortness of breath. CT revealed signs of emphysema Patient set to discharge today, however, repeat 2 step noted o2 requirement and needs to coordinate with CM in am for dispo #Acute hypoxic hypercarbic respiratory failure suspected due to undiagnosed COPD #Acute bronchitis CTA with no PNA or PE but diffuse centrilobular emphysema. ECHO 55-60%, RVH noted, mild LVH Procal negative Continue to wean O2 as able Continue Perforomist BID with continue Pulmicort Continue LAMA/LABA/ICS inhaler Continue duonebs, but transition to prn Azithromycin x 3 days IV soludmedrol x 1 more day, then po x 2 days Continue Mucinex and flutter valve Wean o2 as able 2 step: 1-2L at rest and 4L on exertion PT/OT: d/c home #Suspected LUZ Overnight pulse ox deferred 2/2 O2 requirement #DM-2- uncontrolled, Ha1c 9.4 BG 278. Hold home metformin and Jardiance. lantus, humalog as hyperglycemia is expected with steroids glycemic pharmacy following Likely will increase home metformin and add glipizide Counseled on lifestyle management for 30min: must discontinue mountain dew intake reviewed last year of A1c, increase since november as patient started drinking soda #Hypothyroidism- continue Synthroid #Tobacco abuse- 40+ pack year history of smoking. smokes 1 ppd. Hasn't started on chantix yet. Declines nicoderm patch #Left shoulder pain- following OP with pain management and PT OT. Lidoderm patch DVT ppx- sc lovenox Dispo-dispo tomorrow with home o2 Full code Admission and Anticipated Discharge Date Admission Date: March 22, 2024 Subjective NAEO Reports notable subjective improvement Initial 2 step with no o2, however, noted to desat with OT therefore repeat was requested with 4L on exertion Patient uncomfortable discharging at this time and would prefer to wait till tomorrow to coordinate home health and o2 Physical Exam Constitutional: WD/WN, vitals as above Respiratory: normal respiratory effort, lungs clear to auscultation Cardiovascular: RRR, no murmur, no edema Gastrointestinal (Abdomen): normal bowel sounds, soft, nontender, no hepatosplenomegaly Results & Data Results & Data Vital Signs (Past 12 Hours) Vital Signs Temp Pulse Pulse Pulse Pulse Pulse Resp 03/25/24 13:13 03/25/24 12:52 03/25/24 12:39 36.4 C L 83 20 03/25/24 11:58 36.5 C 66 79 18 03/25/24 10:17 03/25/24 08:07 78 72 03/25/24 08:03 36.5 C 66 18 03/25/24 07:16 75 18 03/25/24 07:03 64 03/25/24 03:04 36.5 C 62 18 Resp Resp BP BP Pulse Ox Pulse Ox Pulse Ox 03/25/24 13:13 86 L 03/25/24 12:52 90 03/25/24 12:39 130/75 89 L 03/25/24 11:58 115/67 109/68 94 03/25/24 10:17 03/25/24 08:07 18 16 90 03/25/24 08:03 115/67 94 03/25/24 07:16 94 03/25/24 07:03 03/25/24 03:04 117/73 94 Pulse Ox Pulse Ox Pulse Ox O2 Del Method O2 Flow Rate O2 Flow Rate O2 Flow Rate 03/25/24 13:13 03/25/24 12:52 91 86 L 0 0 03/25/24 12:39 Room Air 03/25/24 11:58 03/25/24 10:17 Room Air 03/25/24 08:07 93 03/25/24 08:03 High Flow Nasal Cannula 1 03/25/24 07:16 Nasal Cannula 1 03/25/24 07:03 03/25/24 03:04 Nasal Cannula 1 O2 Flow Rate 03/25/24 13:13 03/25/24 12:52 0 03/25/24 12:39 03/25/24 11:58 03/25/24 10:17 03/25/24 08:07 03/25/24 08:03 03/25/24 07:16 03/25/24 07:03 03/25/24 03:04 Laboratory Results Short CBC 03/25/24 Range/Units 06:24 WBC 14.63 H (4.8-10.8) K/ul Hgb 15.5 (14.0-18.0) g/dl Hct 49.2 (42.0-52.0) % Plt Count 191 (130-400) K/uL BMP 03/24/24 03/25/24 15:22 06:24 Sodium 133 L 139 Potassium 5.3 H 4.6 Chloride 98 103 Carbon Dioxide 27 30 BUN 38 H 36 H Creatinine 1.12 0.90 Glucose 231 H 196 H Calcium 9.3 8.6 Medications Administered Home Medications Medication Instructions Recorded Confirmed Last Taken atorvastatin 40 mg tablet 40 mg PO DAILY 03/22/24 03/22/24 03/21/24 cholecalciferol (vitamin D3) 50 50 mcg PO DAILY 03/22/24 03/22/24 03/21/24 mcg (2,000 unit) capsule (Vitamin D3) cyanocobalamin (vitamin B-12) 500 500 mcg PO DAILY 03/22/24 03/22/24 03/21/24 mcg tablet (Vitamin B-12) empagliflozin 25 mg tablet 25 mg PO DAILY 03/22/24 03/22/24 03/21/24 (Jardiance) levothyroxine 25 mcg tablet 25 mcg PO DAILY 03/22/24 03/22/24 03/21/24 cetirizine 10 mg tablet 10 mg PO HS #30 tabs 03/25/24 Unknown fluticasone fur. 100 mcg-umeclid 1 inh inhalation DAILY #60 ea 03/25/24 Unknown 62.5 mcg-vilant 25 mcg inhalat.powder (Trelegy Ellipta) glipizide 5 mg tablet 5 mg PO BID #60 tabs 03/25/24 Unknown guaifenesin 600 mg tablet, 600 mg PO Q12 #30 tabs 03/25/24 Unknown extended release 12 hr (Mucinex) lidocaine 5 % topical patch 1 patch transdermal QAM #30 ea 03/25/24 Unknown metformin 1,000 mg tablet 1,000 mg PO BIDWMEAL #60 tabs 03/25/24 Unknown Active Medications Generic Name Dose Route Start Last Admin Trade Name Freq PRN Reason Stop Dose Admin Atorvastatin Calcium 40 mg 03/23/24 09:00 03/25/24 08:35 Atorvastatin 40 Mg Tab PO 04/22/24 08:59 40 mg DAILY ROMINA Administration Azithromycin 500 mg 03/23/24 09:00 03/25/24 08:35 Azithromycin 250 Mg Tab PO 03/26/24 08:59 500 mg QAM ROMINA Administration Budesonide 0.5 mg 03/22/24 19:00 03/25/24 07:15 Budesonide 0.5 Mg/2 Ml Vial (Pulmicort) NEB 04/21/24 18:59 0.5 mg BIDR ROMINA Administration Cetirizine HCl 10 mg 03/22/24 21:00 03/24/24 20:55 Cetirizine Hcl 10 Mg Tablet PO 04/21/24 20:59 10 mg HS ROMINA Administration Cyanocobalamin 500 mcg 03/22/24 15:30 03/25/24 08:35 Cyanocobalamin (B-12) 500 Mcg Tablet PO 04/21/24 15:29 500 mcg DAILY ROMINA Administration Enoxaparin Sodium 40 mg 03/23/24 09:00 03/25/24 08:35 Enoxaparin Inj 40 Mg/0.4 Ml Syr SQ 04/22/24 08:59 40 mg QAM ROMINA Administration Fluticasone Furoate 1 puffs 03/23/24 09:00 03/25/24 08:37 Fluticasone Furoate 100mcg 14 Puffs/Inhaler INH 04/22/24 08:59 1 puffs DAILY ROMINA Administration Formoterol Fumarate 20 mcg 03/23/24 09:00 03/25/24 07:15 Formoterol 20 Mcg/2 Ml Vial NEB 04/22/24 08:59 20 mcg BIDR ROMINA Administration Guaifenesin 600 mg 03/22/24 21:00 03/25/24 08:34 Guaifenesin 600 Mg Tabcr PO 04/21/24 20:59 600 mg Q12 ROMINA Administration Insulin Aspart 0 units 03/22/24 16:30 03/25/24 12:25 Insulin Aspart Per Unit Charge SC 04/21/24 16:29 10 units ACHS ROMINA Administration Insulin Glargine 20 units 03/25/24 09:00 03/25/24 08:34 Lantus Per Unit Charge SC 04/24/24 08:59 20 units DAILY ROMINA Administration Protocol Levothyroxine Sodium 25 mcg 03/23/24 06:30 03/25/24 05:15 Levothyroxine Sodium 25 Mcg Tablet PO 04/22/24 06:29 25 mcg DAILYBB ROMINA Administration Lidocaine 1 patch 03/23/24 09:00 03/25/24 08:36 Lidocaine 5% 1 Patch TD 04/22/24 08:59 1 patch QAM ROMINA Administration Miscellaneous 1 each 03/22/24 21:00 03/24/24 20:55 Remove Lidoderm Patch N/A 04/21/24 20:59 1 each DAILY@2100 ROMINA Administration Oxymetazoline HCl 1 sprays 03/25/24 09:22 03/25/24 10:49 Oxymetazoline 0.05% 30 Ml Btl NA 04/24/24 09:21 1 sprays BID PRN Administration congestion Polyethylene Glycol 17 gm 03/22/24 15:16 03/24/24 17:56 Polyethylene (Miralax) 17 Gm Pack PO 04/21/24 15:15 17 gm DAILY PRN Administration Constipation Prednisone 40 mg 03/25/24 09:00 03/25/24 08:35 Prednisone 20 Mg Tab PO 03/27/24 08:59 40 mg DAILY ROMINA Administration Sodium Chloride 2 sprays 03/23/24 12:29 03/23/24 13:12 Sodium Chloride 0.65% Na Soln 45 Ml ([place]) NA 04/22/24 12:28 2 sprays NOW PRN Administration nasal dryness Umeclidinium/Vilanterol 1 puffs 03/23/24 09:00 03/25/24 08:37 Umeclidinium/Vilanterol 62.5/25mcg 7 Puffs/Inhaler INH 04/22/24 08:59 1 puffs DAILY ROMINA Administration Vitamin D 50 mcg 03/22/24 15:30 03/25/24 08:35 Cholecalciferol 25 Mcg (1000 Units) Tab PO 04/21/24 15:29 50 mcg DAILY ROMINA Administration
--- NOTE | 2024-03-25 14:12 | Pharmacy Report ---
Pharmacy Glycemic Short Note 2 - Date of Service March 25, 2024 - Glycemic Short BSG Results (Last 24 hours): 03/24/24 03/24/24 03/24/24 15:22 16:26 20:08 Glucose 231 H POC Glucose 300 H 360 H* 03/24/24 03/24/24 03/25/24 20:09 23:34 04:58 Glucose POC Glucose 345 H* 319 H* 181 H 03/25/24 03/25/24 03/25/24 06:24 08:12 12:06 Glucose 196 H POC Glucose 154 H 173 H OUTPATIENT ANTIDIABETIC REGIMEN: * Empagliflozin 25 mg PO daily * Metformin 850 mg PO BIDM HbA1c: 9.4% (03/23/24) ASSESSMENT: 03/25: * Abilio continued to experience severe hyperglycemia for the majority of yest erday: * BSGs: 314, 263, 300, 345 mg/dL * 50 units Lantus + 129 units Novolog * Fasting BSG improved this morning, 154 mg/dL * Patient starting on prednisone 40 mg PO once daily (ordered x 2 days). * Due to patients significant response to steroids, I will add a once daily dose of NPH to help combat steroid induced hyperglycemia. * Continue long acting basal insulin at reduced dosage * Slightly loosen Novolog parameters with NPH on board 03/24: * Abilio experienced severe hyperglycemia yesterday despite aggressive insulin dosing (40 units of basal + 84 units bolus + IV insulin bolus) * Fasting BSG of 314 mg/dL. Patient scheduled to receive Lantus 40 units this AM. * Methylprednisolone decreased from 40 mg IV q12h to daily x 1 dose today (given @ 1227). Will start prednisone 40 mg daily on 03/25. * Anticipate decreased insulin needs with steroid reduction. However, patient will likely continue to require basal insulin given A1c of 9.4%. Of note, A1c likely affected by recent frequent Mountain Dew consumption. Will loosen CF/CR later this evening or 03/25 AM based on BSG trend. 03/23: * RW is a 64 year old male admitted w/ acute exacerbation of COPD * Patient is ordered IV methylprednisolone 40 mg q8h * Poorly controlled T2DM as an outpatient (blood sugar of 278 mg/dL on presentation) * Significant hyperglycemia thus far this admission due to IV steroids * If blood sugar above 300 mg/dL at lunch, will order IV insulin bolus * 8 unit IV bolus ordered for BSG of 336 mg/dL PLAN FOR INPATIENT GLYCEMIC CONTROL: * Hold outpatient oral diabetes medications * Basal insulin * Lantus 20 units SC qAM * NPH 30 units SC once daily administered with prednisone 40 mg * Bolus insulin * NovoLog per scale ACHS or Q6hrs while NPO * Goal Range: Low 110 mg/dL - High 140 mg/dL * Correction Factor: 15 mg/dL/unit * Nutritional / Prandial insulin per carb ratio of 1 unit per 5 grams CHO consumed
[2024-03-26] MEDS: INSULIN ASPART PER UNIT CHARGE SC SCH (00:26)
[2024-03-26 06:44] LABS: BUN Creatinine Ratio 25.2 (10-20); Calcium 8.7 mg/dl (8.6-10.3); Creatinine Clr Calc Pharmacy 71.3 ml/min; Est GFR (African American) 84.6 ml/min; Potassium 4.4 mmol/L (3.5-5.1)
[2024-03-26] MEDS: LANTUS PER UNIT CHARGE SC SCH (08:26)
[2024-03-26] MEDS: NovoLIN-N (NPH) PER UNIT CHARGE SQ SCH (08:27)
--- NOTE | 2024-03-26 11:43 | Discharge Summary ---
Discharge Summary Date of Service March 26, 2024 Principal Dx & Hospital Course #1 = Principal Diagnosis (1) Acute respiratory failure with hypoxia and hypercapnia: (2) Acute exacerbation of chronic obstructive pulmonary disease: (3) Dyspnea on exertion: (4) Type 2 diabetes mellitus without complication: (5) Hypothyroidism: Plan Mr. Abilio Georges is a 64 year old male with tobacco abuse, DM-2, Hypothyroidism who presented to the ED from the PCP office for evaluation of shortness of breath. CT revealed signs of emphysema Patient set to discharge today, however, repeat 2 step noted o2 requirement and needs to coordinate with CM in am for dispo #Acute hypoxic hypercarbic respiratory failure suspected due to undiagnosed COPD #Acute bronchitis CTA with no PNA or PE but diffuse centrilobular emphysema. ECHO 55-60%, RVH noted, mild LVH Procal negative Continue to wean O2 as able tolerated neb treatments Continue LAMA/LABA/ICS inhaler, prescribed as OP Azithromycin x 3 days completed completed steriods Continue Mucinex and flutter valve Wean o2 as able 2 step: 1-2L at rest and 4L on exertion PT/OT: d/c home #Suspected LUZ Overnight pulse ox deferred 2/2 O2 requirement #DM-2- uncontrolled, Ha1c 9.4 BG 278. Counseled on lifestyle management for 30min: must discontinue mountain dew intake reviewed last year of A1c, increase since november as patient started drinking soda Resumed home regimen with increase in metformin Added glipizide BID #Hypothyroidism- continue Synthroid #Tobacco abuse- 40+ pack year history of smoking. smokes 1 ppd. Hasn't started on chantix yet, worried about SE. Declines nicoderm patch #Left shoulder pain- following OP with pain management and PT OT. Lidoderm patch prescribed Notes For Next Care Provider A1C 9.4% patient declined insulin use Counselled extensively on tobacco cessation D/C with 1-2L at rest O2 and 2-4L with exertion Needs PFTS Medication Changes From Visit Trelegy inhaler daily Lidocaine patches Metformin increased to 1000mg BID Glipizide 5mg BID Admission Exam Per Admitting Provider General: Lying comfortably in bed, not in distress, on oxymask HEENT: EOMI, TRES, MMM Chest: Decreased breath sounds bilaterally CVS: Regular rate and rhythm, normal heart sounds, no murmur Abdomen: Soft, non tender, not distended, normal bowel sounds Neuro: Awake, alert, oriented, conversing well, non focal Extremities: Trace edema MSK: Decreased ROM of left shoulder due to pain Discharge Exam Constitutional WD/WN, vitals as above Respiratory normal respiratory effort, lungs clear to auscultation (diminished in periphery ) Cardiovascular RRR, no murmur, no edema Gastrointestinal (Abdomen) normal bowel sounds, soft, nontender, no hepatosplenomegaly Updated Medication List Medication Instructions Recorded Confirmed Type atorvastatin 40 mg tablet 40 mg PO DAILY 03/22/24 03/22/24 History cholecalciferol (vitamin D3) 50 50 mcg PO DAILY 03/22/24 03/22/24 History mcg (2,000 unit) capsule (Vitamin D3) cyanocobalamin (vitamin B-12) 500 500 mcg PO DAILY 03/22/24 03/22/24 History mcg tablet (Vitamin B-12) empagliflozin 25 mg tablet 25 mg PO DAILY 03/22/24 03/22/24 History (Jardiance) levothyroxine 25 mcg tablet 25 mcg PO DAILY 03/22/24 03/22/24 History cetirizine 10 mg tablet 10 mg PO HS #30 tabs 03/25/24 Rx fluticasone fur. 100 mcg-umeclid 1 inh inhalation DAILY #60 ea 03/25/24 Rx 62.5 mcg-vilant 25 mcg inhalat.powder (Trelegy Ellipta) glipizide 5 mg tablet 5 mg PO BID #60 tabs 03/25/24 Rx guaifenesin 600 mg tablet, 600 mg PO Q12 #30 tabs 03/25/24 Rx extended release 12 hr (Mucinex) lidocaine 5 % topical patch 1 patch transdermal QAM #30 ea 03/25/24 Rx metformin 1,000 mg tablet 1,000 mg PO BIDWMEAL #60 tabs 03/25/24 Rx Hospital Stay Data Consultations 03/22/24 12:44 ED Decision to Admit Stat Diagnostic Imagining Performed 03/22/24 11:01 CT for pulmonary embolism PE [CT angio chest PE protocol] Stat Pending Results Patient Have Any Pending Studies at Discharge: No Discharge Instructions Given to Patient (Per Discharging Provider) You were admitted for low oxygen levels and shortness of breath. You were noted to have signs of diffuse emphysema on imaging. You were treated for COPD exacerbation and symptoms resolved with inhalers and steriods. It was encouraged that you please continue to attempt smoking cessation. You were weaned off of oxygen while admitted. Please discuss obtaining a PFT with your PCP (pulmonary function test to establish formal COPD diagnosis) You will be prescribed an inhaler to use once daily in the morning. Please continue mucinex as needed for congestion and other over the counter agents. Please avoid using Afrin or other medicated nasal sprays for more than 48 hours given concerns of refractory congestion (flonase can be used) You were noted to have an A1C 9.4% It was encouraged to consider insulin, however, given reservations about self administration please do the following Metformin increased to 1000mg two times a day Glipizide 5mg two times a day with meals added Please check sugars up to 4 times a day as directed by PCP Please follow up with PCP in 1-2 weeks to discuss glucose trends Please work to continue to remove soda/juices from diet as this is an often large source of carbs/sugar in diet Total Time Total Time Spent Total Time Spent (In Minutes): 45
== END 2024-03-26 13:28 | disposition home or self-care (01) | DRG 190 ==
LOC: ED 09:58 → SUATTDRO 12:55 → EDINP 12:55 → 2W 20:04